=== PATIENT | male | born 1995 | race Caucasian/White ===

== ENCOUNTER 2024-08-06 11:42 | Emergency (ER) | payer OTHER ==
[~2024-08-06] VITALS: Ht 177.8 cm; Wt 816.9 kg
[2024-08-06] MEDS ORDERED: Methadone HCL 10 MG TAB PO ONE (12:20)
[2024-08-06] MEDS ORDERED: METH10 PO (13:35)
== END 2024-08-06 13:24 | disposition home or self-care (01) ==
LOC: ER 11:42
DX: Z76.0 Encounter for issue of repeat prescription (principal)
CPT/HCPCS: 99281; A9270

== ENCOUNTER 2024-11-18 22:14 | Emergency (ER) | payer OTHER ==
[~2024-11-18] VITALS: Ht 175.3 cm; Wt 86.2 kg
[~2024-11-18 22:14] MED LIST: ALBU90OI INH; ALPRAZOLAM0.5 M1 PO; Amoxicillin500 MG PO; Buspirone HCl15 MG PO; CATAPRES0.1 MG PO; FOLI1 PO; METH10 PO; PROP60 PO; QUET100 PO; ROSUVASTATIN CA10 MG PO; VITAMIN B-1100 M1 PO; ZOLOFT10013 PO
[2024-11-18] MEDS ORDERED: Folic Acid 1 MG TAB PO ONE (22:30)
[2024-11-18] MEDS ORDERED: Thiamine HCl 100 MG Tab PO ONE (22:30)
[2024-11-18] MEDS ORDERED: NS 1,000 ML IV SCH (22:30)
[2024-11-18] MEDS ORDERED: Diphth,Pertuss(Acell),Tet Vac 0.5 ML VIAL IM ONE (22:30)
[2024-11-18 23:11] LABS: BASOPHILS ABSOLUTE AUTO 0.04 K/mm3 (0.00-0.23); BASOPHILS PERCENT AUTO 1 % (0-2); EOSINOPHILS ABSOLUTE AUTO 0.25 K/mm3 (0.00-0.68); EOSINOPHILS PERCENT AUTO 6 % (0-6); Hematocrit 43.6 % (37.0-53.0); Hemoglobin 15.4 g/dL (13.5-17.5); IMMATURE GRAN ABSOLUTE AUTO 0.01 K/mm3 (0.00-0.10); IMMATURE GRAN PERCENT AUTO 0 % (0-1); LYMPHOCYTES ABSOLUTE AUTO 0.51 K/mm3 (0.84-5.20); LYMPHOCYTES PERCENT AUTO 13 % (21-46); MONOCYTES ABSOLUTE AUTO 0.28 K/mm3 (0.16-1.47); MONOCYTES PERCENT AUTO 7 % (4-13); Mean Corpuscular HGB 31.2 pg (26.0-34.0); Mean Corpuscular HGB Conc 35.3 g/dL (31.5-36.5); Mean Corpuscular Volume 88 fL (80-100); Mean Platelet Volume 8.7 fL (9.1-12.4); NEUTROPHILS ABSOLUTE AUTO 2.91 K/mm3 (1.96-9.15); NEUTROPHILS PERCENT AUTO 73 % (41-73); Platelet Count 219 K/mm3 (150-400); RDW Coefficient Variation 12.8 % (11.7-14.2); RDW Standard Deviation 41.1 fL (35.1-46.3); Red Blood Cell Count 4.94 M/mm3 (4.30-5.90)
[2024-11-18 23:36] LABS: Ethanol (Alcohol), Blood, Med 218 mg/dL; Salicylate <1.7 mg/dL (2.8-20.0); Thyroid Stimulating Hormone 0.783 uIU/mL (0.360-4.800)
[2024-11-18 23:37] LABS: Alanine Aminotransfer (ALT/SGP 109 U/L (12-78); Albumin, Blood 4.5 g/dL (3.4-5.0); Albumin/Globulin Ratio 1.2 (0.8-1.8); Alk Phos 104 U/L (50-136); Anion Gap 12 mmol/L (3-11); Aspartate Aminotrans (AST/SGOT 92 U/L (12-37); Bilirubin, Total 0.6 mg/dL (0.1-1.0); Blood Urea Nitrogen 12 mg/dL (8-24); Bun/Creatinine Ratio 17.9 (12.0-20.0); CO2, Blood 28 mmol/L (21-32); Calcium, Blood 9.2 mg/dL (8.5-10.1); Chloride, Blood 103 mmol/L (98-108); Creatinine, Blood 0.67 mg/dL (0.60-1.20); Globulin, Blood 3.7 g/dL (2.2-4.0); Glomerular Filtration Rate 129 (60-); Glucose, Blood 89 mg/dL (70-99); Potassium, Blood 4.1 mmol/L (3.5-5.5); Sodium, Blood 139 mmol/L (136-145); Total Protein, Blood 8.2 g/dL (6.4-8.2)
[2024-11-18 23:39] LABS: Acetaminophen, Random <2.0 ug/mL (10.0-30.0)
[2024-11-19] MEDS ORDERED: Acetaminophen 500 MG Tab PO ONE (01:10)
== END 2024-11-19 11:36 | disposition home or self-care (01) ==
LOC: ER 22:14
PROVIDERS: Emergency Medicine
DX: S51.812A Laceration without foreign body of left forearm, initial encounter (principal); S51.811A Laceration without foreign body of right forearm, initial encounter; F10.10 Alcohol abuse, uncomplicated; Y90.7 Blood alcohol level of 200-239 mg/100 ml; J44.9 Chronic obstructive pulmonary disease, unspecified; W26.8XXA Contact with other sharp object(s), not elsewhere classified, initial encounter
CPT/HCPCS: 80053; 80320; 84439; 84443; 85025; 90715; A9270; G0480; J7030

== ENCOUNTER 2024-12-04 17:55 | Emergency (ER) | payer OTHER ==
[~2024-12-04] VITALS: Ht 175.3 cm; Wt 83.9 kg
[2024-12-04 19:00] LABS: BASOPHILS ABSOLUTE AUTO 0.01 K/mm3 (0.00-0.23); BASOPHILS PERCENT AUTO 0 % (0-2); EOSINOPHILS ABSOLUTE AUTO 0.29 K/mm3 (0.00-0.68); EOSINOPHILS PERCENT AUTO 9 % (0-6); Hematocrit 42.5 % (37.0-53.0); Hemoglobin 14.7 g/dL (13.5-17.5); IMMATURE GRAN ABSOLUTE AUTO 0.01 K/mm3 (0.00-0.10); IMMATURE GRAN PERCENT AUTO 0 % (0-1); LYMPHOCYTES ABSOLUTE AUTO 0.36 K/mm3 (0.84-5.20); LYMPHOCYTES PERCENT AUTO 11 % (21-46); MONOCYTES ABSOLUTE AUTO 0.36 K/mm3 (0.16-1.47); MONOCYTES PERCENT AUTO 11 % (4-13); Mean Corpuscular HGB 31.8 pg (26.0-34.0); Mean Corpuscular HGB Conc 34.6 g/dL (31.5-36.5); Mean Corpuscular Volume 92 fL (80-100); Mean Platelet Volume 9.5 fL (9.1-12.4); NEUTROPHILS ABSOLUTE AUTO 2.37 K/mm3 (1.96-9.15); NEUTROPHILS PERCENT AUTO 70 % (41-73); Platelet Count 124 K/mm3 (150-400); RDW Coefficient Variation 12.3 % (11.7-14.2); Red Blood Cell Count 4.62 M/mm3 (4.30-5.90)
[2024-12-04 19:18] LABS: Albumin/Globulin Ratio 1.2 (0.8-1.8); Bilirubin, Total 0.5 mg/dL (0.1-1.0); Bun/Creatinine Ratio 16.4 (12.0-20.0); Calcium, Blood 9.5 mg/dL (8.5-10.1); Creatinine, Blood 0.92 mg/dL (0.60-1.20); Globulin, Blood 3.4 g/dL (2.2-4.0); Total Protein, Blood 7.4 g/dL (6.4-8.2)
[2024-12-04 21:55] LABS: Source, Urine Clean Catch
[2024-12-04 22:00] LABS: Bilirubin, Urine Neg (Neg); Blood, Urine Neg (Neg); Glucose Qualitative, Urine Neg (Neg); Ketones, Urine Neg (Neg); Leukocyte Esterase, Urine Neg (Neg); Nitrite, Urine Neg (Neg); Protein, Urine Neg (Neg); Urobilinogen, Urine NORM (Normal)
[2024-12-04 22:14] LABS: Appearance, Urine Clear (Clear); Color, Urine Yellow (P-Yellow); U Amphetamine Screen Not Detected; U Barbituate Screen Not Detected; U Benzodiazapine Screen DETECTED; U Buprenorphine Screen Not Detected; U Cannabinoids Screen Not Detected; U Cocaine Screen Not Detected; U Methadone Screen DETECTED; U Methamphetamine Screen Not Detected; U Opiates Screen Not Detected; U Phencyclidine Screen Not Detected
[2024-12-04 22:15] LABS: U Oxycodone Screen Not Detected
== END 2024-12-04 23:35 | disposition home or self-care (01) ==
LOC: ER 17:55
PROVIDERS: Physician Assistant
DX: R40.0 Somnolence (principal); J44.9 Chronic obstructive pulmonary disease, unspecified; Z88.8 Allergy status to other drugs, medicaments and biological substances; Z79.899 Other long term (current) drug therapy
CPT/HCPCS: 80053; 81003; 85025; 93005; 93010; 99285-25

== ENCOUNTER 2024-12-16 19:34 | Emergency (ER) | payer OTHER ==
[~2024-12-16] VITALS: Ht 175.3 cm; Wt 88.5 kg
[2024-12-16 20:11] LABS: BASOPHILS ABSOLUTE AUTO 0.06 K/mm3 (0.00-0.23); BASOPHILS PERCENT AUTO 1 % (0-2); EOSINOPHILS PERCENT AUTO 4 % (0-6); Hematocrit 42.1 % (37.0-53.0); Hemoglobin 15.4 g/dL (13.5-17.5); IMMATURE GRAN PERCENT AUTO 0 % (0-1); LYMPHOCYTES ABSOLUTE AUTO 0.27 K/mm3 (0.84-5.20); LYMPHOCYTES PERCENT AUTO 5 % (21-46); MONOCYTES ABSOLUTE AUTO 0.83 K/mm3 (0.16-1.47); MONOCYTES PERCENT AUTO 16 % (4-13); Mean Corpuscular HGB 31.4 pg (26.0-34.0); Mean Corpuscular HGB Conc 36.6 g/dL (31.5-36.5); Mean Corpuscular Volume 86 fL (80-100); Mean Platelet Volume 9.6 fL (9.1-12.4); NEUTROPHILS ABSOLUTE AUTO 3.86 K/mm3 (1.96-9.15); NEUTROPHILS PERCENT AUTO 74 % (41-73); Platelet Count 190 K/mm3 (150-400); RDW Coefficient Variation 11.7 % (11.7-14.2); RDW Standard Deviation 37.1 fL (35.1-46.3); White Blood Cell Count 5.22 K/mm3 (4.00-11.30)
[2024-12-16 20:38] LABS: Albumin, Blood 4.3 g/dL (3.4-5.0); Albumin/Globulin Ratio 1.3 (0.8-1.8); Bilirubin, Total 1.6 mg/dL (0.1-1.0); Bun/Creatinine Ratio 16.9 (12.0-20.0); Calcium, Blood 9.4 mg/dL (8.5-10.1); Creatinine, Blood 0.71 mg/dL (0.60-1.20); Globulin, Blood 3.3 g/dL (2.2-4.0); Potassium, Blood 4.6 mmol/L (3.5-5.5); Total Protein, Blood 7.6 g/dL (6.4-8.2)
[2024-12-16 20:42] LABS: CORONAVIRUS COVID-19 AG Negative (NEGATIVE); INFLUENZA A AG Positive (NEGATIVE); INFLUENZA B AG Negative (NEGATIVE)
[2024-12-16] MEDS ORDERED: NS 1,000 ML IV SCH (20:50)
[2024-12-16] MEDS ORDERED: RX Prepack Albuterol 1 PREPACK/6.7 GM INH UD ONE (21:05)
== END 2024-12-16 22:20 | disposition home or self-care (01) ==
LOC: ER 19:34
PROVIDERS: Student in an Organized Health Care Education/Training Program
DX: J10.1 Influenza due to other identified influenza virus with other respiratory manifestations (principal); Z79.2 Long term (current) use of antibiotics; Z79.02 Long term (current) use of antithrombotics/antiplatelets; Z79.899 Other long term (current) drug therapy
CPT/HCPCS: 71046; 80053; 85025; 87428-QW; 93005; 93010; 99284-25; A9270; J7030

== ENCOUNTER 2025-03-05 11:29 | Emergency (ER) | payer OTHER ==
[~2025-03-05] VITALS: Ht 175.3 cm; Wt 83.5 kg
[2025-03-05 13:00] LABS: BASOPHILS ABSOLUTE AUTO 0.02 K/mm3 (0.00-0.23); BASOPHILS PERCENT AUTO 1 % (0-2); EOSINOPHILS ABSOLUTE AUTO 0.13 K/mm3 (0.00-0.68); EOSINOPHILS PERCENT AUTO 3 % (0-6); Hematocrit 43.1 % (37.0-53.0); Hemoglobin 14.9 g/dL (13.5-17.5); IMMATURE GRAN ABSOLUTE AUTO 0.01 K/mm3 (0.00-0.10); IMMATURE GRAN PERCENT AUTO 0 % (0-1); LYMPHOCYTES ABSOLUTE AUTO 0.37 K/mm3 (0.84-5.20); LYMPHOCYTES PERCENT AUTO 9 % (21-46); MONOCYTES ABSOLUTE AUTO 0.35 K/mm3 (0.16-1.47); MONOCYTES PERCENT AUTO 8 % (4-13); Mean Corpuscular HGB Conc 34.6 g/dL (31.5-36.5); Mean Corpuscular Volume 87 fL (80-100); Mean Platelet Volume 9.4 fL (9.1-12.4); NEUTROPHILS ABSOLUTE AUTO 3.27 K/mm3 (1.96-9.15); NEUTROPHILS PERCENT AUTO 79 % (41-73); Platelet Count 144 K/mm3 (150-400); RDW Coefficient Variation 13.2 % (11.7-14.2); RDW Standard Deviation 41.6 fL (35.1-46.3); Red Blood Cell Count 4.96 M/mm3 (4.30-5.90); White Blood Cell Count 4.15 K/mm3 (4.00-11.30)
[2025-03-05 13:48] LABS: Albumin, Blood 3.8 g/dL (3.4-5.0); Albumin/Globulin Ratio 1.1 (0.8-1.8); Bilirubin, Total 0.8 mg/dL (0.1-1.0); Bun/Creatinine Ratio 17.6 (12.0-20.0); Calcium, Blood 8.4 mg/dL (8.5-10.1); Creatinine, Blood 0.68 mg/dL (0.60-1.20); Globulin, Blood 3.4 g/dL (2.2-4.0); Potassium, Blood 3.8 mmol/L (3.5-5.5); Total Protein, Blood 7.2 g/dL (6.4-8.2)
[2025-03-05] MEDS ORDERED: Ketorolac Tromethamine 15mg Vial IV ONE (14:50)
[2025-03-05] MEDS ORDERED: Folic Acid 1 MG TAB PO ONE (14:50)
[2025-03-05] MEDS ORDERED: NS 1,000 ML IV SCH (14:50)
[2025-03-05] MEDS ORDERED: Thiamine HCl 100 MG Tab PO ONE (14:50)
[2025-03-05 15:22] LABS: Source, Urine Clean Catch
[2025-03-05 15:34] LABS: Appearance, Urine Clear (Clear); Bilirubin, Urine Neg (Neg); Blood, Urine Neg (Neg); Glucose Qualitative, Urine Neg (Neg); Ketones, Urine Neg (Neg); Leukocyte Esterase, Urine Neg (Neg); Nitrite, Urine Neg (Neg); Protein, Urine Neg (Neg); Urobilinogen, Urine NORM (Normal)
[2025-03-05] MEDS ORDERED: LORazepam 2 MG/ML 1ML Injection IV ONE (15:45)
[2025-03-05 16:06] LABS: Color, Urine Pale Yellow (P-Yellow)
[2025-03-05] MEDS ORDERED: Morphine Sulfate 4 MG/1 ML Injection IV ONE (16:15)
[2025-03-05] MEDS ORDERED: ONDA4 PO (16:41)
[2025-03-05] MEDS ORDERED: ACET500 PO (16:41)
[2025-03-05] MEDS ORDERED: IBUP600 PO (16:41)
== END 2025-03-05 17:09 | disposition home or self-care (01) ==
LOC: ER 11:29
PROVIDERS: Emergency Medicine; Physician Assistant
DX: F10.139 Alcohol abuse with withdrawal, unspecified (principal); K85.90 Acute pancreatitis without necrosis or infection, unspecified; K59.00 Constipation, unspecified; R74.01 Elevation of levels of liver transaminase levels; D69.6 Thrombocytopenia, unspecified; Z79.899 Other long term (current) drug therapy
CPT/HCPCS: 74176; 80053; 81003; 83690; 85025; 86308; 96374; 96375; 99284-25; A9270; J1885; J2060; J2270; J7030

== ENCOUNTER 2025-03-16 17:10 | Inpatient (IN) | payer OTHER ==
[~2025-03-16] VITALS: Ht 175.3 cm; Wt 86.4 kg
[~2025-03-16 17:10] MED LIST changes: +ACET500 PO; +IBUP600 PO; +ONDA4 PO
[2025-03-16] MEDS ORDERED: Ketorolac Tromethamine 15mg Vial IV ONE (17:25)
[2025-03-16] MEDS ORDERED: Ondansetron HCl 2 MG / ML 2ML Vial IV ONE (17:25)
[2025-03-16] MEDS ORDERED: Ketamine HCL 10 MG in NS 100 ML IV ONE ×2 (17:25→17:30)
[2025-03-16] MEDS ORDERED: NS 1,000 ML IV SCH (17:25)
[2025-03-16 17:44] LABS: BASOPHILS ABSOLUTE AUTO 0.02 K/mm3 (0.00-0.23); BASOPHILS PERCENT AUTO 1 % (0-2); EOSINOPHILS ABSOLUTE AUTO 0.12 K/mm3 (0.00-0.68); EOSINOPHILS PERCENT AUTO 4 % (0-6); Hematocrit 45.7 % (37.0-53.0); Hemoglobin 16.5 g/dL (13.5-17.5); IMMATURE GRAN PERCENT AUTO 0 % (0-1); LYMPHOCYTES ABSOLUTE AUTO 0.29 K/mm3 (0.84-5.20); LYMPHOCYTES PERCENT AUTO 9 % (21-46); MONOCYTES ABSOLUTE AUTO 0.31 K/mm3 (0.16-1.47); MONOCYTES PERCENT AUTO 10 % (4-13); Mean Corpuscular HGB 30.7 pg (26.0-34.0); Mean Corpuscular HGB Conc 36.1 g/dL (31.5-36.5); Mean Corpuscular Volume 85 fL (80-100); Mean Platelet Volume 8.6 fL (9.1-12.4); NEUTROPHILS ABSOLUTE AUTO 2.36 K/mm3 (1.96-9.15); NEUTROPHILS PERCENT AUTO 76 % (41-73); Platelet Count 136 K/mm3 (150-400); RDW Coefficient Variation 13.1 % (11.7-14.2); RDW Standard Deviation 39.9 fL (35.1-46.3); Red Blood Cell Count 5.37 M/mm3 (4.30-5.90)
[2025-03-16 18:32] LABS: Albumin/Globulin Ratio 0.7 (0.8-1.8); Bilirubin, Total 1.4 mg/dL (0.1-1.0); Bun/Creatinine Ratio 13.8 (12.0-20.0); Calcium, Blood 8.3 mg/dL (8.5-10.1); Creatinine, Blood 0.8 mg/dL (0.60-1.20); Globulin, Blood 4.2 g/dL (2.2-4.0); Potassium, Blood 3.5 mmol/L (3.5-5.5); Total Protein, Blood 7.2 g/dL (6.4-8.2)
[2025-03-16 19:12] LABS: Source, Urine Clean Catch
[2025-03-16 19:19] LABS: Appearance, Urine Clear (Clear); Bilirubin, Urine Neg (Neg); Blood, Urine Neg (Neg); Color, Urine Yellow (P-Yellow); Glucose Qualitative, Urine Neg (Neg); Ketones, Urine Neg (Neg); Leukocyte Esterase, Urine Neg (Neg); Nitrite, Urine Neg (Neg); Protein, Urine Neg (Neg); Urobilinogen, Urine NORM (Normal)
[2025-03-16] MEDS ORDERED: HYDROmorphone HCl/Pf 1MG SYR IV ONE (19:55)
[2025-03-16] MEDS ORDERED: NS KCl 20mEq 1,000 ML IV SCH (20:20)
[2025-03-16] MEDS ORDERED: HYDROmorphone HCl/Pf 1MG SYR IV PRN ×2 (20:20→23:20)
[2025-03-16] MEDS ORDERED: ChlordiazePOXIDE 25 MG Cap PO PRN ×3 (20:25→20:30)
[2025-03-16] MEDS ORDERED: Prochlorperazine Edisylate 10 mg Vial IV PRN (20:25)
[2025-03-16] MEDS ORDERED: Magnesium Hydroxide Conc 10 ML UDC PO PRN (20:30)
[2025-03-16] MEDS ORDERED: Ketorolac Tromethamine 30mg Vial IV PRN (20:45)
[2025-03-16] MEDS ORDERED: QUEtiapine Fumarate 100 MG Tab PO SCH (21:00)
[2025-03-16 21:42] VITALS: BP 148/119
[2025-03-16] MEDS ORDERED: VENL150ER PO (21:50)
[2025-03-16] MEDS ORDERED: PROM25 PO (21:51)
[2025-03-16] MEDS ORDERED: OMEP20ER PO (21:52)
[2025-03-16] MEDS ORDERED: LORazepam 2 MG/ML 1ML Injection IV PRN (23:15)
[2025-03-16 23:52] VITALS: BP 158/113
--- NOTE | 2025-03-17 00:07 | NUR ---
ADMIT NOTE REPORT RECIVED BY THIS RN FROM AOC DIRECTOR COMBAT PLANS OFFICERMARY COCHRAN @ APPROX 2131 PT ARRIVED TO ROOM @ APPROX 0, PT SELF TRANSFERED TO THE BED, PT HOLDING APPROPRATE CONCERSATION, MOVING ALL EXTREMITIES WIHT PURPOSE.
[2025-03-17 03:58] VITALS: BP 156/101
[2025-03-17 05:08] LABS: BASOPHILS ABSOLUTE AUTO 0.02 K/mm3 (0.00-0.23); BASOPHILS PERCENT AUTO 1 % (0-2); EOSINOPHILS PERCENT AUTO 7 % (0-6); Hematocrit 39.1 % (37.0-53.0); Hemoglobin 13.7 g/dL (13.5-17.5); IMMATURE GRAN PERCENT AUTO 0 % (0-1); LYMPHOCYTES ABSOLUTE AUTO 0.26 K/mm3 (0.84-5.20); LYMPHOCYTES PERCENT AUTO 9 % (21-46); MONOCYTES ABSOLUTE AUTO 0.24 K/mm3 (0.16-1.47); MONOCYTES PERCENT AUTO 9 % (4-13); Mean Corpuscular HGB 30.6 pg (26.0-34.0); Mean Corpuscular Volume 88 fL (80-100); Mean Platelet Volume 8.8 fL (9.1-12.4); NEUTROPHILS ABSOLUTE AUTO 2.08 K/mm3 (1.96-9.15); NEUTROPHILS PERCENT AUTO 74 % (41-73); Platelet Count 108 K/mm3 (150-400); RDW Coefficient Variation 13.2 % (11.7-14.2); RDW Standard Deviation 42.2 fL (35.1-46.3); Red Blood Cell Count 4.47 M/mm3 (4.30-5.90)
[2025-03-17 05:44] LABS: Albumin, Blood 3.3 g/dL (3.4-5.0); Albumin/Globulin Ratio 1.3 (0.8-1.8); Bun/Creatinine Ratio 10.8 (12.0-20.0); Calcium, Blood 7.9 mg/dL (8.5-10.1); Creatinine, Blood 0.83 mg/dL (0.60-1.20); Globulin, Blood 2.6 g/dL (2.2-4.0); Magnesium, Blood 1.9 mg/dL (1.6-2.4); Phosphorus, Blood 3.4 mg/dL (2.5-4.9); Potassium, Blood 3.3 mmol/L (3.5-5.5); Total Protein, Blood 5.9 g/dL (6.4-8.2)
[2025-03-17] MEDS ORDERED: Omeprazole 20 MG CapCR PO SCH (06:00)
--- NOTE | 2025-03-17 06:17 | NUR ---
SHIFT SUMMARY PT IS A&O X4, ABLE TO MAKE NEEDS KNOWN, MOVING ALL EXTREMITIES WITH PURPOSE, REPOSITIONING SELF IN BED, USING CALL LIGHT APPROPRIATELY. CONTINUOUS SPO2, SPO2 GREATER THAN 90% ON RA, NO SIGNS OF RESPIRATORY DISTRESS NOTED THIS SHIFT. CONTINUOUS TELE MONITORING, SINUS 60-80 S , PT DENIES CHEST P/P, PULSES PRESENT T/O, CAP REFILL WNL. BOWEL TONES PRESENT IN ALL 4Q, PT REPORTING NAUSEA/MEDICATED PER ORDERS PT USING URINAL IND PT REPORTING PAIN TO UPPER QUADRANTS/ MEDICATED PER ORDERS/ HEATING PAD PLACED. CIWA 6-14, HAVING TREMORS/NAUSEA/SWEAT/ANXIETY/LIGHT SENSITIVITY/ HEAD ACHE. BED LOWEST POSITION, CALL LIGHT IN REACH, AWAITING TO GIVE REPORT TO ONCOMING RN.
[2025-03-17] MEDS ORDERED: Mag Sulfate 1 GM/D5% 100ML 100 ML IV STA (07:29)
[2025-03-17] MEDS ORDERED: Potassium Chloride 20 MEQ TabCR PO ONE (08:00)
[2025-03-17 08:14] VITALS: BP 133/93
[2025-03-17] MEDS ORDERED: Venlafaxine HCl 75 MG CapCR PO SCH (09:00)
[2025-03-17] MEDS ORDERED: Enoxaparin 40 MG/0.4 ML SYR SC SCH (09:00)
[2025-03-17] MEDS ORDERED: Folic Acid 1 MG TAB PO SCH (09:00)
[2025-03-17] MEDS ORDERED: Multivitamins 1 Tab PO SCH (09:00)
[2025-03-17] MEDS ORDERED: Thiamine HCl 100 MG Tab PO SCH (09:00)
[2025-03-17] MEDS ORDERED: Methadone HCL 10 MG TAB PO SCH (09:00)
[2025-03-17] MEDS ORDERED: Promethazine HCl 25 MG Tab PO PRN (09:45)
[2025-03-17 12:12] VITALS: BP 126/101
[2025-03-17] MEDS ORDERED: HYDROmorphone HCl/Pf 1MG SYR IV PRN (13:50)
[2025-03-17 15:48] VITALS: BP 145/94
--- NOTE | 2025-03-17 16:35 | NUR ---
SHIFT SUMMARY: A/O X3, PLEASANT AND COOPERATIVE WITH CARE, ABLE TO COMMUNICATE NEEDS IN SENTENCES, CIWA SCORES RANGED FROM 11-14 THIS SHIFT, ETOH WITHDRAWAL MANAGED WITH LIBRIUM PER EMAR, LAST DRINK REPORTED THE MORNING OF 03/16. NSR, IV RAC. RA WHILE AWAKE, SAT >92% ON 1L O2 VIA NC WITH SLEEP, OBSERVABLE PERIODS OF APNEA, PT REPORTS FAMILY HX OF RUBIA. DIET ADVANCED TO HEART HEALTHY WITH RESTRICTED FIBER TOLERATED, NAUSEA MANAGED PER EMAR, CONSISTENT DIFFUSE ABD TENDERNESS MANAGED PER EMAR, SBA FOR TOILETING, URINAL AT BEDSIDE. PT RESTING WITH CALL LIGHT WITHIN REACH.
[2025-03-17] MEDS ORDERED: Nicotine Polacrilex 2 MG Gum PO PRN (16:45)
[2025-03-17] MEDS ORDERED: Nicotine 14 MG PATCH TOP SCH (17:00)
[2025-03-17 19:38] VITALS: BP 132/103
--- NOTE | 2025-03-17 21:11 | NUR ---
PT SCORED 26 ON CIWA, GIVEN 50MG PO LIBRIUM. NOW PT IS RESTING COMFORTABLY WITH EYES CLOSED, NO AGITATION, TREMORS, OR SWEATING NOTED.
--- NOTE | 2025-03-17 21:49 | NUR ---
PT WOKE UP STATING THAT HE "DIDN'T FEEL SO WELL". NEW CIWA DONE. PT IS AOX4 ABLE TO ADD UNSURE OF DATE PREVIOUS. PT IS DIAPHORETIC AND IS GETTING NEW GOWN. CURRENT CIWA IS 16.
[2025-03-18 01:17] VITALS: BP 125/89
[2025-03-18 04:05] VITALS: BP 128/107
[2025-03-18 04:31] LABS: BASOPHILS ABSOLUTE AUTO 0.01 K/mm3 (0.00-0.23); BASOPHILS PERCENT AUTO 1 % (0-2); EOSINOPHILS ABSOLUTE AUTO 0.18 K/mm3 (0.00-0.68); EOSINOPHILS PERCENT AUTO 10 % (0-6); Hematocrit 37.6 % (37.0-53.0); Hemoglobin 13.1 g/dL (13.5-17.5); IMMATURE GRAN ABSOLUTE AUTO 0.01 K/mm3 (0.00-0.10); IMMATURE GRAN PERCENT AUTO 1 % (0-1); LYMPHOCYTES ABSOLUTE AUTO 0.22 K/mm3 (0.84-5.20); LYMPHOCYTES PERCENT AUTO 12 % (21-46); MONOCYTES ABSOLUTE AUTO 0.22 K/mm3 (0.16-1.47); MONOCYTES PERCENT AUTO 12 % (4-13); Mean Corpuscular HGB 31.6 pg (26.0-34.0); Mean Corpuscular HGB Conc 34.8 g/dL (31.5-36.5); Mean Corpuscular Volume 91 fL (80-100); Mean Platelet Volume 9.5 fL (9.1-12.4); NEUTROPHILS ABSOLUTE AUTO 1.25 K/mm3 (1.96-9.15); NEUTROPHILS PERCENT AUTO 66 % (41-73); Platelet Count 91 K/mm3 (150-400); RDW Coefficient Variation 13.5 % (11.7-14.2); RDW Standard Deviation 44.8 fL (35.1-46.3); Red Blood Cell Count 4.15 M/mm3 (4.30-5.90); White Blood Cell Count 1.89 K/mm3 (4.00-11.30)
[2025-03-18 04:49] LABS: Calcium, Blood 8.2 mg/dL (8.5-10.1); Creatinine, Blood 0.72 mg/dL (0.60-1.20); Globulin, Blood 2.9 g/dL (2.2-4.0); Magnesium, Blood 2.1 mg/dL (1.6-2.4); Potassium, Blood 3.8 mmol/L (3.5-5.5); Total Protein, Blood 5.9 g/dL (6.4-8.2)
[2025-03-18 07:31] VITALS: BP 142/95
[2025-03-18 12:00] VITALS: BP 132/95
[2025-03-18] MEDS ORDERED: Amylase/Lipase/Protease DR Cap 12,000 PO SCH (12:30)
[2025-03-18 16:05] VITALS: BP 122/108
--- NOTE | 2025-03-18 17:10 | NUR ---
SHIFT SUMMARY: CIWA SCORES RANGED FROM 9-15 THIS SHIFT, A/OX3, PLEASANT AND COOPERATIVE WITH CARE, ABLE TO COMMUNICATE NEEDS, USES CALL LIGHT APPROPRIATELY, INTERMITTENTLY CONFUSED AND ANXIOUS, BED ALARM ON. NSR, HR 70'S-90'S. RA WHILE AWAKE, 1L WITH SLEEP. REPORTS DIFFICULTY INITIATING A STREAM OF URINE BUT IS ABLE TO EMPTY HIS BLADDER ONCE A FLOW IS INITIATED, HAD A BM TODAY, PT TOLERATED PO INTAKE WITH ANTIEMETIC. SBA1 WITH AMBULATING, SHOWERED INDEPENDENTLY. PT REPORTS THAT HE HAS AN INTAKE INTERVIEW SCHEDULED AT [facility] ON 03/26 WITH A PENDING ADMISSION FOR 03/27, HIS GOAL IS TO BE DISCHARGED BY TUESDAY, 03/22 TO SPEND THE WEEKEND WITH HIS DAUGHTER BEFORE HIS UPCOMING REHAB.
[2025-03-18 20:09] VITALS: BP 116/93
[2025-03-19 01:27] VITALS: BP 133/77
[2025-03-19 05:06] VITALS: BP 119/77
--- NOTE | 2025-03-19 05:10 | NUR ---
PT HAS BEEN SLEEPING WELL SINCE 199. NO CIWA S/S WHILE SLEEPING.
[2025-03-19 05:46] LABS: BASOPHILS ABSOLUTE AUTO 0.02 K/mm3 (0.00-0.23); BASOPHILS PERCENT AUTO 1 % (0-2); EOSINOPHILS PERCENT AUTO 9 % (0-6); Hematocrit 37.7 % (37.0-53.0); Hemoglobin 12.8 g/dL (13.5-17.5); IMMATURE GRAN PERCENT AUTO 0 % (0-1); LYMPHOCYTES ABSOLUTE AUTO 0.23 K/mm3 (0.84-5.20); LYMPHOCYTES PERCENT AUTO 10 % (21-46); MONOCYTES ABSOLUTE AUTO 0.25 K/mm3 (0.16-1.47); MONOCYTES PERCENT AUTO 11 % (4-13); Mean Corpuscular HGB 30.5 pg (26.0-34.0); Mean Corpuscular Volume 90 fL (80-100); NEUTROPHILS ABSOLUTE AUTO 1.59 K/mm3 (1.96-9.15); NEUTROPHILS PERCENT AUTO 70 % (41-73); Platelet Count 95 K/mm3 (150-400); RDW Coefficient Variation 13.5 % (11.7-14.2); RDW Standard Deviation 43.9 fL (35.1-46.3); White Blood Cell Count 2.29 K/mm3 (4.00-11.30)
[2025-03-19 06:11] LABS: Bilirubin, Total 0.8 mg/dL (0.1-1.0); Bun/Creatinine Ratio 7.2 (12.0-20.0); Calcium, Blood 8.4 mg/dL (8.5-10.1); Creatinine, Blood 0.69 mg/dL (0.60-1.20); Globulin, Blood 2.9 g/dL (2.2-4.0); Magnesium, Blood 1.8 mg/dL (1.6-2.4); Potassium, Blood 3.7 mmol/L (3.5-5.5); Total Protein, Blood 5.9 g/dL (6.4-8.2)
[2025-03-19 07:37] VITALS: BP 123/81
[2025-03-19] MEDS ORDERED: Polyethylene Glycol 3350 17 gm PO SCH (11:00)
[2025-03-19 12:37] VITALS: BP 136/83
[2025-03-19 14:10] LABS: Hematocrit 37.9 % (37.0-53.0); Hemoglobin 13.2 g/dL (13.5-17.5)
--- NOTE | 2025-03-19 18:00 | NUR ---
SHIFT SUMMARY PATIENT AOX3 ABLE TO MAKE NEEDS KNOWN HE. HE STATES HE HAS ABD PAIN AND A HEADACHE EVEN AFTER GETTING LIBRIUM AND PAIN MEDICATION. HE SLEEPS HEAVY MOST OF THE DAY AFTER HIS PRN MEDICATIONS AND CAN BE HARD TO WAKE UP AND WHEN HE DOES WAKE UP HE JUST ASKED FOR MORE PRN MEDS BUT HE IS TOLD HE IS TOO SLEEPY TO GET THEM AND THEN FALLS RIGHT BACK TO SLEEP WHILE HE IS TALKING TO YOU.
[2025-03-19 18:22] VITALS: BP 146/101
[2025-03-19 20:00] VITALS: BP 134/97
[2025-03-20] VITALS (7 sets, daily range): BP systolic 111–149; BP diastolic 72–106
[2025-03-20 04:53] LABS: BASOPHILS ABSOLUTE AUTO 0.02 K/mm3 (0.00-0.23); BASOPHILS PERCENT AUTO 1 % (0-2); EOSINOPHILS ABSOLUTE AUTO 0.23 K/mm3 (0.00-0.68); EOSINOPHILS PERCENT AUTO 9 % (0-6); Hematocrit 38.4 % (37.0-53.0); Hemoglobin 12.9 g/dL (13.5-17.5); IMMATURE GRAN ABSOLUTE AUTO 0.01 K/mm3 (0.00-0.10); IMMATURE GRAN PERCENT AUTO 0 % (0-1); LYMPHOCYTES ABSOLUTE AUTO 0.25 K/mm3 (0.84-5.20); LYMPHOCYTES PERCENT AUTO 10 % (21-46); MONOCYTES ABSOLUTE AUTO 0.29 K/mm3 (0.16-1.47); MONOCYTES PERCENT AUTO 12 % (4-13); Mean Corpuscular HGB 31.2 pg (26.0-34.0); Mean Corpuscular HGB Conc 33.6 g/dL (31.5-36.5); Mean Corpuscular Volume 93 fL (80-100); NEUTROPHILS PERCENT AUTO 68 % (41-73); Platelet Count 109 K/mm3 (150-400); RDW Coefficient Variation 13.4 % (11.7-14.2); RDW Standard Deviation 45.9 fL (35.1-46.3); Red Blood Cell Count 4.13 M/mm3 (4.30-5.90)
[2025-03-20 05:09] LABS: Albumin/Globulin Ratio 0.9 (0.8-1.8); Bilirubin, Total 0.4 mg/dL (0.1-1.0); Bun/Creatinine Ratio 9.1 (12.0-20.0); Calcium, Blood 8.8 mg/dL (8.5-10.1); Creatinine, Blood 0.66 mg/dL (0.60-1.20); Globulin, Blood 3.2 g/dL (2.2-4.0); Magnesium, Blood 1.8 mg/dL (1.6-2.4); Potassium, Blood 4.2 mmol/L (3.5-5.5); Total Protein, Blood 6.2 g/dL (6.4-8.2)
--- NOTE | 2025-03-20 06:09 | NUR ---
SHIFT SUMMARY PT HAS TOLERATED NIGHT WELL WITH NO SIGNIFICANT CHANGES IN STATUS. PT COMPLAINED PERIODICALLY OF PAIN AND WAS GIVEN MEDICATIONS AT TIME OF COMPLAINT. PT RECIEVED MEDICATIONS RELATED TO HIS ALCOHOL WITHDRAWALS AND AT THIS TIME APPEARS TO BE RESTING COMFORTABLY IN HIS ROOM. WILL CONTINUE TO MONITOR UNTIL REPORT PASSED TO DAY SHIFT TEAM.
[2025-03-20] MEDS ORDERED: OxyCODONE HCL 5 MG TAB PO PRN (10:10)
[2025-03-20] MEDS ORDERED: Nicotine 21 MG PATCH TOP SCH (16:00)
--- NOTE | 2025-03-20 17:47 | NUR ---
PT IS A&Ox4 AND ABLE TO MAKE NEEDS KNOWN. HE IS ON RA AND AMBULATES TO THE RESTROOM W/SBA. HE HAS BEEN C/O ABD PAIN, NAUSEA, AND TREMORS TODAY. HIS CIWA SCORES HAVE RANGED FROM 4-15 TODAY. HE DID WELL ON ORAL INTAKE TODAY. NO NEEDS OR CONCERNS NOTED @ THIS TIME. BED IN LOW POSITION, CALL LIGHT AND PERSONAL BELONGINGS IN REACH.
--- NOTE | 2025-03-20 19:17 | NUR ---
ASSUMPTION OF CARE PT AWAKE SITTING UP IN BED,BEDSIDE REPORT COMPLETED.PT C/O PAIN,REQUESTING PRN PAIN MED.PRN DILAUDID ADMINISTERED BY DAYSHIFT NURSE.PLAN OF CARE REVIEWED,PT DENIES FURTHER NEEDS.CALL LIGHT AND PT'S ITEMS WITHIN REACH.SAFETY MEASURES IN PLACE.ASSESSMENT AND TREATMENT ONGOING PER CARE PLAN.
[2025-03-21 04:00] VITALS: BP 124/87
[2025-03-21 04:46] LABS: Hematocrit 40.2 % (37.0-53.0); Hemoglobin 13.6 g/dL (13.5-17.5); Mean Corpuscular HGB 30.6 pg (26.0-34.0); Mean Corpuscular HGB Conc 33.8 g/dL (31.5-36.5); Mean Corpuscular Volume 91 fL (80-100); Mean Platelet Volume 9.6 fL (9.1-12.4); Platelet Count 114 K/mm3 (150-400); RDW Coefficient Variation 13.2 % (11.7-14.2); RDW Standard Deviation 44.3 fL (35.1-46.3); Red Blood Cell Count 4.44 M/mm3 (4.30-5.90); White Blood Cell Count 3.04 K/mm3 (4.00-11.30)
[2025-03-21 05:25] LABS: Albumin, Blood 3.2 g/dL (3.4-5.0); Albumin/Globulin Ratio 0.9 (0.8-1.8); Bilirubin, Total 0.5 mg/dL (0.1-1.0); Bun/Creatinine Ratio 11.1 (12.0-20.0); Calcium, Blood 9.2 mg/dL (8.5-10.1); Creatinine, Blood 0.72 mg/dL (0.60-1.20); Globulin, Blood 3.4 g/dL (2.2-4.0); Total Protein, Blood 6.6 g/dL (6.4-8.2)
--- NOTE | 2025-03-21 06:04 | NUR ---
PT FELL ASLEEP AFTER RECEIVING NIGHT TIME MEDS INCLUDING PRN LIBRIUM AND COMPAZINE FOR NAUSEA.PT WAS DIFFICULT TO AROUSE THROUGHOUT THE SHIFT.BREATHING EVEN AND NONLABORED,VITAL SIGNS STABLE.PT SCORED 10 ON CIWA SCALE AT THE BEGINNING OF THE BUT SCORED 1 AT MIDNIGHT AND 0400.PT AWAKE AT THIS TIME,SITTING UP IN BED.PT REPORTS ABDOMINAL PAIN AT 9/10.PRN OXYCODONE 5MG PO GIVEN.PT ALSO REQUESTED PRN LIBRIUM FOR ALCOHOL WITHDRAWAL.PT SCORED 9 ON CIWA,PRN LIBRIUM 25 MG PO GIVEN.SEIZURE PRECAUTIONS IN PLACE.CALL LIGHT AND PT'S ITEMS WITHIN REACH.PT DENIES FURTHER NEEDS AT THIS TIME.
[2025-03-21 07:30] VITALS: BP 128/99
[2025-03-21] MEDS ORDERED: ChlordiazePOXIDE 25 MG Cap PO PRN ×2 (11:05→21:00)
[2025-03-21 11:47] VITALS: BP 116/79
[2025-03-21 15:08] VITALS: BP 113/75
--- NOTE | 2025-03-21 16:25 | NUR ---
PT A&Ox4 AND ABLE TO MAKE NEEDS KNOWN. HE IS ON RA AND IS A SBA FOR AMBULATION. PT SLEPT FOR MOST OF THE DAY TODAY. NOTIFIED PT THAT HE WAS BEING MOVED TO ANOTHER UNIT @ APPROXIMATELY 1600. GAVE REPORT TO MARY ARVIZU AND HIS STUDENT @ 0271. PT AND HIS PERSONAL BELONGINGS WERE TRANSFERRED TO [facility] BY @ 7902.
--- NOTE | 2025-03-21 17:23 | NUR ---
ARRIVAL PT ARRIVED TO UNIT FROM PCU. PT AMBULATORY IN ROOM. MEDICATED FOR NAUSEA. PAIN MEDS GIVEN PRIOR TO ARRIVAL PT REPORTS SOME RELIEF. WANTS TO SHOWER AFTER DINNER. PT REPORTS SOME WITHDRAWL SYMPTOMS, LIBRIUM GIVEN PRIOR TO ARRIVAL WELL. TOLERATING DIET AT THIS TIME.
[2025-03-21 19:25] VITALS: BP 135/95
[2025-03-21] MEDS ORDERED: Ondansetron 4 MG SoluTab MM PRN (21:00)
--- NOTE | 2025-03-21 21:00 | NUR ---
CALL TO HOSPITALIST AND SENIOR SOFTWARE TEST ENGINEER RESIDENT. PT NAUSEATED, HAD CLAMMY PALMS, VERBALIZED ARCEO, AUDITORY AND VISUAL HALLUCINATIONS, IS VISIBLY AGITATED AND ANXIOUS. CIWA SCORED AT 17, DISCUSSED WITH RUBBER AND POUNDER. CALL PLACED TO HOSPITALIST AND WAS INSTRUCTED TO CALL NIGHT RESIDENT. CALL PLACED TO RESIDENT DR. LEE AND NOTIFIED OF ABOVE SYMPTOMS. PROVIDER TO PLACE NEW ORDERS FOR ONE TIME DOSE OF ZOFRAN AND LIBRIUM. INFORMED PT OF ABOVE PLAN. PT VERBALIZED UNDERSTANDING.
[2025-03-21 21:02] VITALS: BP 127/94
--- NOTE | 2025-03-22 04:15 | NUR ---
SHIFT SUMMARY NOC. PT ADMIT FOR ETOH PANCREATITIS. PT A/OX4. PT C/O ABDOMINAL PAIN AND NAUSEA THIS SHIFT. SEE PREVIOUS NOTE REGARDING CIWA SX. PT ANXIOUS AND TEARFUL AT START OF SHIFT BUT IMPROVED AFTER NEW ORDER FOR ONE TIME PRN DOSE OF LIBRIUM. PT VERBALIZED THAT ONE TIME DOSE OF ZOFRAN HELPED NAUSEA FOR A SHORT PERIOD OF TIME. PT STATES PHENERGAN HELPS BETTER FOR NAUSEA, BUT TOO SOON FOR DOSE AT TIME OF REQUEST. REPORTED IMPROVEMENT IN PAIN AFTER OXYCODONE 5MG. PT VOIDING URINE. PT RESTING WITH EYES CLOSED AND CALL LIGHT IN REACH.
[2025-03-22 05:32] LABS: BASOPHILS ABSOLUTE AUTO 0.03 K/mm3 (0.00-0.23); BASOPHILS PERCENT AUTO 1 % (0-2); EOSINOPHILS ABSOLUTE AUTO 0.29 K/mm3 (0.00-0.68); EOSINOPHILS PERCENT AUTO 9 % (0-6); Hematocrit 39.8 % (37.0-53.0); Hemoglobin 13.4 g/dL (13.5-17.5); IMMATURE GRAN ABSOLUTE AUTO 0.01 K/mm3 (0.00-0.10); IMMATURE GRAN PERCENT AUTO 0 % (0-1); LYMPHOCYTES PERCENT AUTO 10 % (21-46); MONOCYTES ABSOLUTE AUTO 0.46 K/mm3 (0.16-1.47); MONOCYTES PERCENT AUTO 15 % (4-13); Mean Corpuscular HGB 30.9 pg (26.0-34.0); Mean Corpuscular HGB Conc 33.7 g/dL (31.5-36.5); Mean Corpuscular Volume 92 fL (80-100); Mean Platelet Volume 9.6 fL (9.1-12.4); NEUTROPHILS ABSOLUTE AUTO 2.01 K/mm3 (1.96-9.15); NEUTROPHILS PERCENT AUTO 65 % (41-73); Platelet Count 125 K/mm3 (150-400); RDW Coefficient Variation 13.2 % (11.7-14.2); RDW Standard Deviation 45.1 fL (35.1-46.3); Red Blood Cell Count 4.34 M/mm3 (4.30-5.90)
[2025-03-22 06:01] LABS: Albumin, Blood 3.3 g/dL (3.4-5.0); Bilirubin, Total 0.5 mg/dL (0.1-1.0); Bun/Creatinine Ratio 9.8 (12.0-20.0); Calcium, Blood 9.2 mg/dL (8.5-10.1); Creatinine, Blood 0.71 mg/dL (0.60-1.20); Globulin, Blood 3.4 g/dL (2.2-4.0); Potassium, Blood 3.9 mmol/L (3.5-5.5); Total Protein, Blood 6.7 g/dL (6.4-8.2)
[2025-03-22] MEDS ORDERED: ChlordiazePOXIDE 25 MG Cap PO PRN (06:40)
[2025-03-22 07:26] VITALS: BP 122/84
[2025-03-22] MEDS ORDERED: CHLO25 PO (11:55)
--- NOTE | 2025-03-22 13:49 | NUR ---
DISCHARGE: PACKET PRINTED AND PT EDUCATED. IV DC'D WNL, TIP INTACT. PT SCRIPTS SENT TO [facility]. PT LEFT UNIT AT ABOUT 1300 WITH FAMILY
== END 2025-03-22 13:07 | disposition home or self-care (01) | DRG 439 ==
LOC: ER 17:10 → SURS 20:22 → PCU 20:22 → ERHOLD 20:22 → PCU 21:39 → SURS 03-21 16:51
PROVIDERS: Emergency Medicine; Student in an Organized Health Care Education/Training Program; ADMIT Internal Medicine
DX: K85.20 Alcohol induced acute pancreatitis without necrosis or infection (principal); D61.818 Other pancytopenia; F10.239 Alcohol dependence with withdrawal, unspecified; E87.1 Hypo-osmolality and hyponatremia; K92.1 Melena; J44.9 Chronic obstructive pulmonary disease, unspecified; K76.0 Fatty (change of) liver, not elsewhere classified; R74.01 Elevation of levels of liver transaminase levels; D72.819 Decreased white blood cell count, unspecified; D69.6 Thrombocytopenia, unspecified; F11.11 Opioid abuse, in remission; E87.6 Hypokalemia; F41.0 Panic disorder [episodic paroxysmal anxiety]; Z89.022 Acquired absence of left finger(s); Z98.890 Other specified postprocedural states; Z98.41 Cataract extraction status, right eye; Z91.51 Personal history of suicidal behavior; Z86.14 Personal history of Methicillin resistant Staphylococcus aureus infection; Z79.899 Other long term (current) drug therapy; Z79.51 Long term (current) use of inhaled steroids; Z79.1 Long term (current) use of non-steroidal anti-inflammatories (NSAID); Z79.2 Long term (current) use of antibiotics; Z86.711 Personal history of pulmonary embolism
CPT/HCPCS: 36415; 80053; 80320; 81003; 83690; 83735; 84100; 85014; 85018; 85025; 93005; 93010; 94760; 94762; 96361; 96374; 96375; 99284-25; A9270; J0780; J1171; J1650; J1885; J2405; J3475; J3480; J7030

== ENCOUNTER 2025-05-06 13:11 | Inpatient (IN) | payer OTHER ==
[~2025-05-06] VITALS: Ht 177.8 cm; Wt 86.9 kg
[~2025-05-06 13:11] MED LIST changes: +AMOCLA875 PO; +Acetaminophen325 M1 PO; +CATAPRES-TTS 11 EAC1 TOP; +CHLO25 PO; +DOCU100 PO; +DULCOLAX400 MG/51 PO; +EFFEXOR XR150 MG PO; +GABA300 PO; +IBUP200 PO; +MELATONIN5 M1 PO; +OMEP20ER PO; +ONDA8 PO; +PROM25 PO; +QUETIAPINE FUM10011 PO; +SUDANYL PE5 MG PO; +VENL150ER PO
[2025-05-06 14:26] LABS: BASOPHILS ABSOLUTE AUTO 0.04 K/mm3 (0.00-0.23); BASOPHILS PERCENT AUTO 1 % (0-2); EOSINOPHILS ABSOLUTE AUTO 0.33 K/mm3 (0.00-0.68); EOSINOPHILS PERCENT AUTO 7 % (0-6); Hematocrit 42.9 % (37.0-53.0); Hemoglobin 15.2 g/dL (13.5-17.5); IMMATURE GRAN ABSOLUTE AUTO 0.03 K/mm3 (0.00-0.10); IMMATURE GRAN PERCENT AUTO 1 % (0-1); LYMPHOCYTES ABSOLUTE AUTO 0.56 K/mm3 (0.84-5.20); LYMPHOCYTES PERCENT AUTO 12 % (21-46); MONOCYTES ABSOLUTE AUTO 0.53 K/mm3 (0.16-1.47); MONOCYTES PERCENT AUTO 11 % (4-13); Mean Corpuscular HGB Conc 35.4 g/dL (31.5-36.5); Mean Corpuscular Volume 89 fL (80-100); NEUTROPHILS ABSOLUTE AUTO 3.26 K/mm3 (1.96-9.15); NEUTROPHILS PERCENT AUTO 69 % (41-73); NRBC ABSOLUTE 0.00 K/mm3 (0.00-0.02); NRBC Auto 0.0 /100 WBC (0.0-0.2); Platelet Count 189 K/mm3 (150-400); RDW Coefficient Variation 13.0 % (11.7-14.2); RDW Standard Deviation 42.4 fL (35.1-46.3)
[2025-05-06] MEDS ORDERED: PHENobarbital Sodium 65MG / ML 1ML Vial IV ONE ×2 (14:35→15:10)
[2025-05-06] MEDS ORDERED: Ondansetron HCl 2 MG / ML 2ML Vial IV ONE (14:35)
[2025-05-06] MEDS ORDERED: Midazolam HCl 1MG / ML 2ML Vial IV ONE (15:15)
[2025-05-06 16:10] LABS: Ethanol (Alcohol), Blood, Med <3 mg/dL
[2025-05-06 16:21] LABS: Alanine Aminotransfer (ALT/SGP 82 U/L (12-78); Albumin, Blood 3.2 g/dL (3.4-5.0); Albumin/Globulin Ratio 0.9 (0.8-1.8); Anion Gap 9 mmol/L (3-11); Aspartate Aminotrans (AST/SGOT 77 U/L (12-37); Bilirubin, Total 0.9 mg/dL (0.1-1.0); Blood Urea Nitrogen 13 mg/dL (8-24); CO2, Blood 29 mmol/L (21-32); Calcium, Blood 8.6 mg/dL (8.5-10.1); Chloride, Blood 98 mmol/L (98-108); Creatinine, Blood 0.94 mg/dL (0.60-1.20); Globulin, Blood 3.4 g/dL (2.2-4.0); Glucose, Blood 101 mg/dL (70-99); Potassium, Blood 4.6 mmol/L (3.5-5.5); Sodium, Blood 131 mmol/L (136-145); Total Protein, Blood 6.6 g/dL (6.4-8.2)
[2025-05-06] MEDS ORDERED: Ondansetron HCl 2 MG / ML 2ML Vial IV PRN (17:50)
[2025-05-06] MEDS ORDERED: Diazepam 5 MG / ML 2ML SYR IV PRN ×2 (17:50)
[2025-05-06] MEDS ORDERED: Albuterol 2.5 MG/3 ML VIAL INH PRN (18:00)
[2025-05-06 18:56] LABS: U Amphetamine Screen Not Detected; U Barbituate Screen DETECTED; U Benzodiazapine Screen DETECTED; U Cocaine Screen Not Detected; U Methadone Screen DETECTED; U Methamphetamine Screen Not Detected; U Opiates Screen Not Detected
[2025-05-06 18:57] LABS: U Buprenorphine Screen Not Detected; U Oxycodone Screen Not Detected; U Phencyclidine Screen Not Detected
[2025-05-06 18:58] LABS: U Cannabinoids Screen Not Detected
[2025-05-06 20:30] VITALS: BP 130/107
[2025-05-06] MEDS ORDERED: CLON.5 PO (23:12)
[2025-05-06] MEDS ORDERED: Magnesium Sulf 2 GM/Water 50ML 50 ML IV ONE (23:50)
[2025-05-07] VITALS (8 sets, daily range): BP systolic 94–149; BP diastolic 63–105
[2025-05-07] MEDS ORDERED: Pantoprazole Sodium 40 MG Injection IV SCH (06:00)
[2025-05-07 06:46] LABS: Hematocrit 40.7 % (37.0-53.0); Hemoglobin 13.7 g/dL (13.5-17.5); Mean Corpuscular HGB Conc 33.7 g/dL (31.5-36.5); Mean Corpuscular Volume 92 fL (80-100); NRBC ABSOLUTE 0.00 K/mm3 (0.00-0.02); NRBC Auto 0.0 /100 WBC (0.0-0.2); Platelet Count 122 K/mm3 (150-400); RDW Coefficient Variation 12.6 % (11.7-14.2); RDW Standard Deviation 42.4 fL (35.1-46.3)
[2025-05-07 07:07] LABS: Alanine Aminotransfer (ALT/SGP 86.0 U/L (12-78); Albumin, Blood 3.3 g/dL (3.4-5.0); Albumin/Globulin Ratio 1.0 (0.8-1.8); Anion Gap 6.0 mmol/L (3-11); Aspartate Aminotrans (AST/SGOT 74.0 U/L (12-37); Bilirubin, Total 0.7 mg/dL (0.1-1.0); Blood Urea Nitrogen 9.0 mg/dL (8-24); CO2, Blood 31.0 mmol/L (21-32); Calcium, Blood 8.6 mg/dL (8.5-10.1); Chloride, Blood 102.0 mmol/L (98-108); Creatinine, Blood 0.79 mg/dL (0.60-1.20); Globulin, Blood 3.3 g/dL (2.2-4.0); Glucose, Blood 113.0 mg/dL (70-99); Magnesium, Blood 2.4 mg/dL (1.6-2.4); Potassium, Blood 4.0 mmol/L (3.5-5.5); Sodium, Blood 135.0 mmol/L (136-145); Total Protein, Blood 6.6 g/dL (6.4-8.2)
--- NOTE | 2025-05-07 07:24 | NUR ---
SHIFT SUMMARY: PT A&OX4 COOPERATIVE AND ABLE TO MAKE NEEDS KNOWN. VSS ON RA. ETOH WITHDRAWAL. CIWA RANGE 10-26. MEDICATED PER EMAR. PT C/O RUQ PAIN. MEDICATED PER EMAR. MG 1.5. RESIDENT CONSULTED AND ORDERED MAG REPLACEMENT. MAG REPLACED DURING SHIFT. LR @ 150 ML/HR. USES URINAL AT BEDSIDE. MED REC COMPLETED. BED IS LOW AND LOCKED. CALL LIGHT IS WITHIN REACH. REPORT GIVEN TO DAY SHIFT NURSE.
[2025-05-07] MEDS ORDERED: Enoxaparin 40 MG/0.4 ML SYR SC SCH (09:00)
[2025-05-07] MEDS ORDERED: Multivitamins 1 Tab PO SCH (09:00)
[2025-05-07] MEDS ORDERED: Folic Acid 1 MG TAB PO SCH (09:00)
--- NOTE | 2025-05-07 13:49 | NUR ---
ASSUMPTION OF CARE: PATIENT IS ALERT AND ORIENTED X4 VERY CLOSE WITH TIME AND DATE, HAS A CLOUDED SENSORIUM AT TIMES, DIFFICULTY WITH SOME SPECIFIC DETAILS, BUT ABLE TO USE THE CALL LIGHT, PLEASANT AND COOPERATIVE, DOES ENDORSE SYMPTOMS MOST OF THE TIME, CIWA HAS BEEN VERY VERIABLE FROM - FOR THIS RN AND DOES REQUIRE LARGE DOSING FOR CONTROL OF WITHDRAWAL, PROVIDER AWARE, LR STOPPED AND VERBAL OK FROM DR. ALEXANDER, PATIENT HAS BEEN ABLE TO TOLERATE FLUIDS WELL, APPROXIMATELY 1500mL SINCE START OF THE SHIFT. DENIES CHETS PAIN PRESSURE OR SOB AT REST. VOIDING WELL DENEIS PAIN TENDERNESS OR DIFFICULTY URINATING. DID REQUEST MIRALAX, PROVIDER AWAER, NICOTINE GUM NOW ON DEC. PATIENT ON TELE NO EVENTS CURRENLTY. SPO2 >94% AT REST ON RA. PLAN OF CARE CONTINUES.
--- NOTE | 2025-05-07 19:38 | NUR ---
ASSUMPTION OF CARE ASSUMED PT'S CARE AT 1900,BEDSIDE REPORT COMPLETED.PT IN BED WIDE AWAKE.PLAN OF CARE REVIEWED.DISCUSSED THE ALCOHOL WITHDRAWAL TREATMENT PROTOCOL IN PLACE.PT VERBALIZES UNDERSTANDING.TEACHING ON FLUID INTAKE DUE TO LOW SODIUM COMPLETED.PT VERBALIZES UNDERSTANDING.PT DENIES PAIN,DENIES NAUSEA/VOMITING,DENIES NEEDS AT THIS TIME.CALL LIGHT AND PT'S ITEMS WITHIN REACH.MONITORING ONGOING PER CAREPLAN.
[2025-05-08 04:30] VITALS: BP 117/84
--- NOTE | 2025-05-08 06:26 | NUR ---
PT MONITORED THROUGH THE SHIFT,CIWA ASSESSMENT AND TREATMENT COMPLETED ORDERED.PT FELL ASLEEP AT MIDNIGHT AFTER RECEIVING PRN ATIVAN 4MG PO AND COMPAZINE FOR NAUSEA.PT STILL SLEEPING AT THIS TIME,RESPONDS TO VOICE BUT GOES BACK TO SLEEP.CALL LIGHT AND PT'S ITEMS WITHIN REACH.MONITORING ONGOING PER CAREPLAN.
[2025-05-08 07:30] VITALS: BP 132/99
[2025-05-08 10:55] VITALS: BP 139/100
[2025-05-08 10:55] LABS: Hematocrit 45.1 % (37.0-53.0); Hemoglobin 15.3 g/dL (13.5-17.5); Mean Corpuscular HGB Conc 33.9 g/dL (31.5-36.5); Mean Corpuscular Volume 92 fL (80-100); NRBC ABSOLUTE 0.00 K/mm3 (0.00-0.02); NRBC Auto 0.0 /100 WBC (0.0-0.2); Platelet Count 157 K/mm3 (150-400); RDW Coefficient Variation 12.3 % (11.7-14.2); RDW Standard Deviation 40.8 fL (35.1-46.3)
[2025-05-08 11:15] LABS: Alanine Aminotransfer (ALT/SGP 94.0 U/L (12-78); Albumin, Blood 4.1 g/dL (3.4-5.0); Albumin/Globulin Ratio 1.1 (0.8-1.8); Anion Gap 8.0 mmol/L (3-11); Aspartate Aminotrans (AST/SGOT 72.0 U/L (12-37); Bilirubin, Total 0.8 mg/dL (0.1-1.0); Blood Urea Nitrogen 8.0 mg/dL (8-24); CO2, Blood 30.0 mmol/L (21-32); Calcium, Blood 9.9 mg/dL (8.5-10.1); Chloride, Blood 99.0 mmol/L (98-108); Creatinine, Blood 0.75 mg/dL (0.60-1.20); Globulin, Blood 3.8 g/dL (2.2-4.0); Glucose, Blood 119.0 mg/dL (70-99); Magnesium, Blood 2.0 mg/dL (1.6-2.4); Phosphorus, Blood 3.2 mg/dL (2.5-4.9); Potassium, Blood 4.2 mmol/L (3.5-5.5); Sodium, Blood 133.0 mmol/L (136-145); Total Protein, Blood 7.9 g/dL (6.4-8.2)
--- NOTE | 2025-05-08 11:57 | NUR ---
SHIFT SUMMARY: PATIENT IS ALERT AND ORINETED X 4, HOWEVER, EXTREMELY MORE ANXIOUS TODAY, PLAN TO DECREASE AMOUNT OF PRN MEDICATIONS. DR. ALEXANDER ROUNDED AND PLAN FOR DECREASE BENZODIAZAPINES, PATIENT RN AND PROVIDER ATTEMPTING TO DO THE ATIVAN 4 mg Q 6 HOURS. DENIES CHEST EWING PRESSURE, PROVIDER AWARE OF BEHAVIORAL ISSUES, SCORING CIWA IS VERY DEPENDENT ON PATIENT, PATIENT ID EDUCATED ON SPECIFIC QUESTIONS AND APPEARS TO HALLMARK HIS SYMPTOMS PROVIDER AWARE. PATIENT ALSO HAS SCRATCHED HIMSELF TO CUT ARM, PROVIDER AWARE. DENIES CHEST PAIN PRESSURE OR SOB. PATIENT HAS BEEN LESS ANXIOUS KNOWNING PLAN. ALL CONCERNS ADDRESSED AT THIS TIME.
[2025-05-08 14:56] VITALS: BP 141/103
--- NOTE | 2025-05-08 19:00 | NUR ---
EOS: PATIENT IS OVERALL IMPROVED WITH PLAN ESTABLISHED BY DR. ALEXANDER, OVERALL IMPROVING. NO CHANGES FROM PREVIOUS SUMMARY. STILL DENIES CHEST PAIN PRESSURE OR SOB. CIWA IMPROVING. NO LIBRIUM GIVEN AFTER MORNING DOSE. AND 4MG Q 6 HOURS CONTROLLING SYMPTOMS.
[2025-05-08 19:22] VITALS: BP 135/114
[2025-05-09 00:06] VITALS: BP 121/80
[2025-05-09 03:58] VITALS: BP 114/90
--- NOTE | 2025-05-09 04:15 | NUR ---
SHIFT SUMMARY ADMITTED FOR ETOH WITHDRAWAL. FULL CODE. HE IS ON RA, 1 ASSIST. HE IS A&O X4, BUT STATES HE IS ANXIOUS. TELEMETRY: NSR @ 94 BPM. ATIVAN GIVEN THIS SHIFT Q6 PER REPORTS. CIWAS HAVE BEEN 7 FOR ME. HE IS WANTING TO EAT LOTS OF SNACKS THIS SHIFT. [facility] IS FOLLOWING. POSSIBLE PLAN IS FOR DC HOME WHEN STABLE.
[2025-05-09 07:31] LABS: Alanine Aminotransfer (ALT/SGP 72 U/L (12-78); Albumin, Blood 3.4 g/dL (3.4-5.0); Albumin/Globulin Ratio 0.9 (0.8-1.8); Aspartate Aminotrans (AST/SGOT 60 U/L (12-37); Bilirubin, Total 0.8 mg/dL (0.1-1.0); Blood Urea Nitrogen 10 mg/dL (8-24); Calcium, Blood 8.7 mg/dL (8.5-10.1); Creatinine, Blood 0.67 mg/dL (0.60-1.20); Globulin, Blood 3.8 g/dL (2.2-4.0); Glucose, Blood 101 mg/dL (70-99); Total Protein, Blood 7.2 g/dL (6.4-8.2)
[2025-05-09 07:36] LABS: Anion Gap Unable to Calculate mmol/L (3-11)
[2025-05-09 08:54] LABS: Anion Gap 10.0 mmol/L (3-11); CO2, Blood 29.0 mmol/L (21-32); Chloride, Blood 97.0 mmol/L (98-108); Potassium, Blood 3.8 mmol/L (3.5-5.5); Sodium, Blood 132.0 mmol/L (136-145)
[2025-05-09 10:13] VITALS: BP 108/63
[2025-05-09] MEDS ORDERED: B-1100 M1 PO ×2 (11:24→11:26)
[2025-05-09] MEDS ORDERED: DAILY-VITE1 EAC1 PO (11:25)
[2025-05-09] MEDS ORDERED: Hair, Skin & N1 EACH PO (11:28)
== END 2025-05-09 12:44 | disposition home or self-care (01) | DRG 897 ==
LOC: ER 13:11 → PCU 17:41
PROVIDERS: Emergency Medicine; Internal Medicine; Nurse Practitioner Acute Care; Physician Assistant; ADMIT Student in an Organized Health Care Education/Training Program
DX: F10.239 Alcohol dependence with withdrawal, unspecified (principal); F11.20 Opioid dependence, uncomplicated; E87.1 Hypo-osmolality and hyponatremia; J44.9 Chronic obstructive pulmonary disease, unspecified; R44.1 Visual hallucinations; K21.9 Gastro-esophageal reflux disease without esophagitis; K76.0 Fatty (change of) liver, not elsewhere classified; R74.01 Elevation of levels of liver transaminase levels; F17.210 Nicotine dependence, cigarettes, uncomplicated; F41.1 Generalized anxiety disorder; K70.9 Alcoholic liver disease, unspecified; Z86.711 Personal history of pulmonary embolism; Z79.51 Long term (current) use of inhaled steroids; Z79.899 Other long term (current) drug therapy; Z79.1 Long term (current) use of non-steroidal anti-inflammatories (NSAID); Z79.2 Long term (current) use of antibiotics
CPT/HCPCS: 36415; 76705; 80051; 80053; 80320; 82140; 83690; 83735; 84100; 85025; 85027; 93005; 93010; 94762; 96361; 96374; 96375; 99285-25; A9270; J1650; J2250; J2405; J2470; J2560; J3360; J3475; J7120; Q0164

== ENCOUNTER 2025-05-20 19:20 | Inpatient (IN) | payer OTHER ==
[~2025-05-20] VITALS: Ht 175.3 cm; Wt 83.1 kg
[~2025-05-20 19:20] MED LIST changes: +B-1100 M1 PO; +CLON.5 PO; +DAILY-VITE1 EAC1 PO; +Hair, Skin & N1 EACH PO
[2025-05-20 20:26] LABS: Source, Urine Straight Cath
[2025-05-20 20:33] LABS: BASOPHILS ABSOLUTE AUTO 0.03 K/mm3 (0.00-0.23); BASOPHILS PERCENT AUTO 1 % (0-2); EOSINOPHILS ABSOLUTE AUTO 0.04 K/mm3 (0.00-0.68); EOSINOPHILS PERCENT AUTO 1 % (0-6); Hematocrit 39.0 % (37.0-53.0); Hemoglobin 13.7 g/dL (13.5-17.5); IMMATURE GRAN ABSOLUTE AUTO 0.00 K/mm3 (0.00-0.10); IMMATURE GRAN PERCENT AUTO 0 % (0-1); LYMPHOCYTES ABSOLUTE AUTO 0.40 K/mm3 (0.84-5.20); LYMPHOCYTES PERCENT AUTO 11 % (21-46); MONOCYTES ABSOLUTE AUTO 0.22 K/mm3 (0.16-1.47); MONOCYTES PERCENT AUTO 6 % (4-13); Mean Corpuscular HGB Conc 35.1 g/dL (31.5-36.5); Mean Corpuscular Volume 88 fL (80-100); NEUTROPHILS ABSOLUTE AUTO 3.05 K/mm3 (1.96-9.15); NEUTROPHILS PERCENT AUTO 82 % (41-73); NRBC ABSOLUTE 0.00 K/mm3 (0.00-0.02); NRBC Auto 0.0 /100 WBC (0.0-0.2); Platelet Count 219 K/mm3 (150-400); RDW Coefficient Variation 12.0 % (11.7-14.2); RDW Standard Deviation 38.5 fL (35.1-46.3)
[2025-05-20 20:39] LABS: Bilirubin, Urine Neg (Neg); Color, Urine Yellow (P-Yellow); Glucose Qualitative, Urine Neg (Neg); Ketones, Urine Neg (Neg); Leukocyte Esterase, Urine Neg (Neg); Protein, Urine Neg (Neg); Specific Gravity, Urine 1.010 (1.003-1.022); Urobilinogen, Urine NORM (Normal)
[2025-05-20 20:57] LABS: Alanine Aminotransfer (ALT/SGP 41.0 U/L (12-78); Albumin, Blood 3.8 g/dL (3.4-5.0); Albumin/Globulin Ratio 1.2 (0.8-1.8); Anion Gap 13.0 mmol/L (3-11); Aspartate Aminotrans (AST/SGOT 34.0 U/L (12-37); Bilirubin, Total 0.5 mg/dL (0.1-1.0); Blood Urea Nitrogen 11.0 mg/dL (8-24); CO2, Blood 25.0 mmol/L (21-32); Calcium, Blood 8.5 mg/dL (8.5-10.1); Chloride, Blood 96.0 mmol/L (98-108); Creatinine, Blood 0.65 mg/dL (0.60-1.20); Globulin, Blood 3.3 g/dL (2.2-4.0); Glucose, Blood 108.0 mg/dL (70-99); Potassium, Blood 4.0 mmol/L (3.5-5.5); Sodium, Blood 130.0 mmol/L (136-145); Total Protein, Blood 7.1 g/dL (6.4-8.2)
[2025-05-20] MEDS ORDERED: NS 1,000 ML IV SCH (23:30)
[2025-05-20] MEDS ORDERED: CefTRIAXone Sodium 1,000 MG in NS 50 ML IV ONE (23:30)
[2025-05-20 23:44] LABS: Ethanol (Alcohol), Blood, Med 252.0 mg/dL
[2025-05-21 00:41] LABS: Prothrombin Time Results 12.4 Sec (9.7-11.5)
[2025-05-21] MEDS ORDERED: D5W-1/2NS 1,000 ML IV SCH (08:00)
[2025-05-21 10:33] VITALS: BP 129/78
--- NOTE | 2025-05-21 11:01 | NUR ---
ASSUMPTION OF CARE: PT ARRIVED TO MEDICAL FLOOR FROM ED VIA [facility], ESCORTED BY LAWYERS. THIS RN ASSUMED CARE OF PATIENT. SLEEPING BUT ROUSABLE DURING TRANSFER FROM [place] TO BED. NS @ 100mL/hr VIA RIGHT HAND. SALINE LOCKED LFA. ABLE PATENT AND DRAINING ARTRUO URINE TO GRAVITY. PT SKIN CLAMMY. BREATHING EVEN AND UNLABORED; SHALLOW UPON LUNG SOUND ASSESSMENT. FINE, BIBASILAR CRACKLES. NORMAL RATE AND RHYTHM. MED REC AND INTAKE COMPLETED. WILL CALL [facility] TO CONFIRM PT'S LAST TIME AND DOSE OF METHADONE. BED IN LOWEST POSITION. CALL LIGHT WITHIN REACH. ACUTE NEEDS MET.
--- NOTE | 2025-05-21 12:19 | NUR ---
PER DR HERNANDEZ: OKAY TO CONTINUE METHADONE @ 70MG QAM. GIVE FIRST DOSE NOW.
[2025-05-21 15:22] VITALS: BP 160/103
--- NOTE | 2025-05-21 15:45 | NUR ---
PATIENT VITALS TRENDING UP. HAS RECEIVED 100mg LIBRIUM AND 4mg PO LORAZEPAM SINCE ADMISSION AT 1030. CIWA SCORES 14 x2, NOW 26. DIAPHORETIC, TREMULOUS AND ANXIOUS. PLAYING ON PHONE "TRYING TO KEEP BRAIN BUSY". CALL TO DR HERNANDEZ WHO ORDERED TRANSFER TO ICU FOR PRECIDEX DRIP. CHARGE NOTIFIED; PT TO TRANSFER TO ICU10 ONCE BED BECOMES AVAILABLE (CURRENT PATIENT DISCHARGING). PT NOTIFIED.
[2025-05-21] MEDS ORDERED: Diazepam 5 MG / ML 2ML SYR IV PRN (16:05)
--- NOTE | 2025-05-21 17:31 | NUR ---
PATIENT TRANSFERRED TO ICU VIA GURNEY BY THIS RN AND SH[facility]LEY [facility] WITH ALL BELONGINGS AND PATIENT CHART.
[2025-05-21] MEDS ORDERED: Ondansetron HCl 2 MG / ML 2ML Vial IV PRN (18:05)
--- NOTE | 2025-05-21 18:44 | NUR ---
TRANSFER TO ICU PT TRANSFERED TO ICU 10 AT 1721 FROM MEDICAL FLOOR DUE TO INCREASE IN CIWA AND ALCOHOL WITHDRAWLS. PT CIWA 20'S AND PRECEDEX STARTED UPON ARRIVAL AT 0.2MCG/KG/MIN. HE IS A/O X4 AND ABLE TO MAKE HIS NEEDS KNOWN. SPO2 >96% ON RA. HR 60'S. SBP 150'S. TOLERATING PO MODERATLY; C/O MILD NAUSEA, NOTIFIED DR HERNANDEZ WHO PROVIDED ORDERS FOR ZOFRAN. ABEL IN PLACE AND DRAINING TO GRAVITY. D5 1/2NS INFUSING AT 100ML/HR. ALSO DISCUSSED WITH DR HERNANDEZ REGARDING INCREASE IN WITHDRAWL SYMPTOMS, LIBRIUM INCREASED. WILL REPORT TO PM RN WHEN AVAILABLE.
[2025-05-21 19:00] VITALS: BP 112/94
[2025-05-21 21:00] VITALS: BP 129/92
[2025-05-21 22:00] VITALS: BP 137/99
[2025-05-21 23:00] VITALS: BP 124/97
[2025-05-22] VITALS (14 sets, daily range): BP systolic 117–142; BP diastolic 81–122
[2025-05-22 03:32] LABS: Anion Gap 8.0 mmol/L (3-11); Blood Urea Nitrogen 6.0 mg/dL (8-24); CO2, Blood 29.0 mmol/L (21-32); Calcium, Blood 7.9 mg/dL (8.5-10.1); Chloride, Blood 103.0 mmol/L (98-108); Creatinine, Blood 0.77 mg/dL (0.60-1.20); Glucose, Blood 117.0 mg/dL (70-99); Magnesium, Blood 2.2 mg/dL (1.6-2.4); Potassium, Blood 3.6 mmol/L (3.5-5.5); Sodium, Blood 136.0 mmol/L (136-145)
--- NOTE | 2025-05-22 04:52 | NUR ---
SHIFT SUMMARY PT HERE FOR ETOH WD- LAST DRINK 05/21, DRINKS 12 WHITE CLAWS/DAY. A/OX4, ABLE TO MAKE NEEDS KNOWN, USES CALL LIGHT. PRECEDEX INFUSING. VSS ON ROOM AIR, HR 50'S, SATS >92%. LOWEST CIWA- 3, HIGHEST CIWA-16. PT MEDICATED WITH PO ATIVAN AND LIBRIUM W/ RELIEF. PT REPORTS AUDITORY/VISUAL HALLUCINATIONS, TREMURS, DIAPHORETIC, NAUSEA AND ARCEO WHEN CIWA SCORE IS HIGH. PT REPORTED ZOFRAN DOES NOT WORK WELL FOR HIM, PHENERGAN ADDED TO MAR, PT REPORTS RELIEF. ABEL DRAINING. BM X4 UP TO COMMODE THIS SHIFT. ONE INCONTINENT EPISODE. PT IS VERY INDEPENDENT ANDD PREFERS TO CLEAN HIMSELF UP AFTER TOILETING. LABS IMPROVED THIS AM. NO ACUTE EVENTS, CALL LIGHT IN REACH.
--- NOTE | 2025-05-22 13:56 | NUR ---
PT APPEARS SOMNOLENT ON PRECEDEX 0.3MG/KG/HR. CIWA 26 BASED ON PT REPORTS BUT SCORING MORE AT 15-18. REDUCED PRECEDEX TO 0.1MG/KG/HR. ADMINISTERED PRN DOSING OF LIBRIUM AND ATIVAN PER MAR
--- NOTE | 2025-05-22 18:06 | NUR ---
SHIFT SUMMARY NEURO: ALERT AND ORIENTED X4. CALLS APPROPRIATELY. ABLE TO MAKE HIS NEEDS KNOWN. CIWA 12-26 TODAY. PRN MEDICATIONS LIBRIUM, ATIVAN AND PRECEDEX USED TO MANAGE ETOH WITHDRAWL. LIBRIUM MAX DOSE 400MG USED IN LAST 24HRS. ONLY ATIVAN ADMINISTERED FOR LAST CIWA. PRECEDEX RUNNING AT 0.1MG/KG/HR. PULM: LUNGS CLEAR TO AUSCULATION. SPO2 95% OR GREATER ON RA CARDIAC: SB/SR, PRECEDEX DOSE REDUCED FROM 0.3MG/KG/HR DUE TO SOMOLENCE RASS -1/-2. PT CLOSING EYES WHILE SPEAKING AND FALLING ASLEEP DURING CONVERSATION. HR 47-50S. RASS/HR IMPROVED AFTER STOPPING. GI: NORMOACTIVE BOWEL TONES. ABODMEN IS SOFT/NON TENDER. COMPLAINTS OF DIARRHEA WITH LACTULOSE, PER DR RIZZO THIS AM OK TO REFUSE. MILD/MOD NAUSEA TODAY - NO EMESIS OR RETCHING. PRN PHENEGREN USED VS ZOFRAN QTC 400S. : CLEAR YELLOW URINE, ABEL REMOVED 1400 DUE TO VOIDE BY 1999. SKIN INTACT, PRIOR TRACH SITE SCAR. MOOD: PT VOICED MANY THOUGHTS OF SADNESS AND DEPRESSION. PARTIAL LIFE REVIEW DONE WITH ACTIVE LISTNEING. PROVIDED REASSURANCE. DISCUSSED HEALTHY COPING MECHANISMS AND FOLLOW UP WITH HIS PROVIDER POST HOSPITAL ADMISSION. PT MAY BENEFIT FROM PSYCH EVAL AFTER WITHDRAWL S/S RESOLVE
[2025-05-23] VITALS (14 sets, daily range): BP systolic 96–143; BP diastolic 62–109
[2025-05-23] MEDS ORDERED: Albuterol HFA200 ACT/6.7 GM INH INH PRN (01:50)
--- NOTE | 2025-05-23 06:39 | NUR ---
PT PLANS FOR MEDS FOR THE DAY AT 0530, PT ASKED ME TO "TURN DOWN THE IV MED" WHEN I ASKED HIM WHY HE SAID "I DON'T WANT TO BE TIRED ALL DAY". HE THEN TOLD ME HE FELT "SHAKY AND WAS HEARING THINGS. DO I HAVE ANYTHING AVAILABLE? I'M TRYING TO HOLD OUT UNTIL MY METHADONE IS DUE SO I CAN GROUP EVERYTHING TOGETHER."
[2025-05-23] MEDS ORDERED: NS 250 ML IV PRN (07:25)
[2025-05-23 15:51] LABS: Alanine Aminotransfer (ALT/SGP 77.0 U/L (12-78); Albumin, Blood 3.3 g/dL (3.4-5.0); Albumin/Globulin Ratio 1.1 (0.8-1.8); Anion Gap 8.0 mmol/L (3-11); Aspartate Aminotrans (AST/SGOT 123.0 U/L (12-37); Bilirubin, Total 0.5 mg/dL (0.1-1.0); Blood Urea Nitrogen 4.0 mg/dL (8-24); CO2, Blood 28.0 mmol/L (21-32); Calcium, Blood 8.1 mg/dL (8.5-10.1); Chloride, Blood 99.0 mmol/L (98-108); Creatinine, Blood 0.78 mg/dL (0.60-1.20); Globulin, Blood 3.0 g/dL (2.2-4.0); Glucose, Blood 96.0 mg/dL (70-99); Potassium, Blood 3.8 mmol/L (3.5-5.5); Sodium, Blood 131.0 mmol/L (136-145); Total Protein, Blood 6.3 g/dL (6.4-8.2)
--- NOTE | 2025-05-23 17:50 | NUR ---
WENT TO GIVE PT MEDS WHILE PRIMARY NURSE WAS ADMITING A NEW PT. PT STATED THAT HE HATES THIS HOSPITAL. WE DO NOTHING FOR HIM AND HE WOULD RATHER GO HOME AND DRINK HIMSELF TO [place]ATH[place] THEN STAY HERE. STATES DYING WOULD BE BETTER FOR HIM AT THIS POINT. STATES THAT HE HAS A PLAN TO WALK OUT OF HERE AND FIND THE NEAREST DRUG DEALER AND HOPE WHATEVER THEY GIVE HIM DOESNT HAVE FENTANYL. ASKED IF I CAN GET THE MD FOR HIM, STATES THAT PRIMARY NURSE AND MD ARE WORKING AGAINST HIM AND ARE OFFERING HIM NO HELP WITH GETTING LIBRIUM. PRIMARY NURSE ALERTED WELL CHARGE NURSE.
--- NOTE | 2025-05-23 19:19 | NUR ---
Summary. Pt requiring more medication this shift, Precedex titrated up to 0.8 for agitation, currently at 0.6 mcg/kg/hr. Pt agitated at times, making comments about leaving and aquiring drugs on the street. This afternoon pt made multiple comments about self-harm to break RN, see note. Suicide precautions initiated, physician notified. Pt mentation labile, difficult to assess risk. See chart for further details.
--- NOTE | 2025-05-23 19:30 | NUR ---
ASSUMPTION OF CARE: ASSUMED CARE AT START OF SHIFT (1899). PT IS DOING WELL AND RESTING IN BED. THEY ARE ALERT AND ABLE TO FOLLOW COMMANDS, BUT APPEARED RESTLESS AND AGITATED. ON PRECEDX GTT PER EMR ORDERS. PT IS GOING THROUGH ETOH WITHDRAWLS, CIWA SCORE: 31. PT HAS 1:1 SITTER FOR SUICIDAL IDEATIONS. WHEN TALKING TO PT, PT STATES THEY AREN'T CURRENTLY HAVING THOUGHT OF SUICIDE BUT ARE VERY FRUSTRATED WITH THEIR CARE AND OVER THE PAST YEARS THEY DON'T FEEL LIKE THEY ARE RECIEVING THE CARE THEY NEED. LUNG SOUNDS ARE CLEAR AND EQUAL BILATERALLY, O2@ 1LPM VIA NC SPO2 >95%. SINUS RYTHM WITH SBP:130'S MAP >65 HR:80'S. IV: POWERGLIDE IN RUE. PT ABLE TO USE BEDSIDE URINAL. LINES AND CORDS PLACED OUT OF REACH. CALL LIGHT PLACED WITHIN REACH.
[2025-05-24] VITALS (25 sets, daily range): BP systolic 81–143; BP diastolic 63–100
[2025-05-24 04:35] LABS: BASOPHILS ABSOLUTE AUTO 0.02 K/mm3 (0.00-0.23); BASOPHILS PERCENT AUTO 1 % (0-2); EOSINOPHILS ABSOLUTE AUTO 0.06 K/mm3 (0.00-0.68); EOSINOPHILS PERCENT AUTO 3 % (0-6); Hematocrit 36.6 % (37.0-53.0); Hemoglobin 12.4 g/dL (13.5-17.5); IMMATURE GRAN ABSOLUTE AUTO 0.01 K/mm3 (0.00-0.10); IMMATURE GRAN PERCENT AUTO 0 % (0-1); LYMPHOCYTES ABSOLUTE AUTO 0.28 K/mm3 (0.84-5.20); LYMPHOCYTES PERCENT AUTO 12 % (21-46); MONOCYTES ABSOLUTE AUTO 0.35 K/mm3 (0.16-1.47); MONOCYTES PERCENT AUTO 15 % (4-13); Mean Corpuscular HGB Conc 33.9 g/dL (31.5-36.5); Mean Corpuscular Volume 90 fL (80-100); NEUTROPHILS ABSOLUTE AUTO 1.70 K/mm3 (1.96-9.15); NEUTROPHILS PERCENT AUTO 70 % (41-73); NRBC ABSOLUTE 0.00 K/mm3 (0.00-0.02); NRBC Auto 0.0 /100 WBC (0.0-0.2); Platelet Count 95 K/mm3 (150-400); RDW Coefficient Variation 11.9 % (11.7-14.2); RDW Standard Deviation 38.7 fL (35.1-46.3)
[2025-05-24 04:51] LABS: Alanine Aminotransfer (ALT/SGP 81.0 U/L (12-78); Albumin, Blood 3.2 g/dL (3.4-5.0); Albumin/Globulin Ratio 1.0 (0.8-1.8); Anion Gap 9.0 mmol/L (3-11); Aspartate Aminotrans (AST/SGOT 113.0 U/L (12-37); Bilirubin, Total 0.5 mg/dL (0.1-1.0); Blood Urea Nitrogen 5.0 mg/dL (8-24); CO2, Blood 30.0 mmol/L (21-32); Calcium, Blood 8.2 mg/dL (8.5-10.1); Chloride, Blood 98.0 mmol/L (98-108); Creatinine, Blood 0.88 mg/dL (0.60-1.20); Globulin, Blood 3.3 g/dL (2.2-4.0); Glucose, Blood 100.0 mg/dL (70-99); Magnesium, Blood 2.0 mg/dL (1.6-2.4); Phosphorus, Blood 4.6 mg/dL (2.5-4.9); Potassium, Blood 3.6 mmol/L (3.5-5.5); Sodium, Blood 133.0 mmol/L (136-145); Total Protein, Blood 6.5 g/dL (6.4-8.2)
--- NOTE | 2025-05-24 06:28 | NUR ---
SHIFT SUMMARY: PT IS DOING WELL AND RESTING IN BED. NO ACUTE CHANGES THROUGHOUT THE SHIFT. PT WAS ABLE TO SLEEP MOST OF THE NIGHT. PT WAS PLACED ON O2 @ 1LPM VIA NC AND SPO2 >95%. LUNG SOUNDS ARE CLEAR AND EQUAL BILATERALLY. SINUS RYTHM WITH SBP: 100-120'S MAP >65 HR: 70'S. IV: POWERLIDE GLIDE IN LUE AND PERIPHERAL IN R HAND. PT IS ABLE STAND VIA 1 PERSON ASSIST AND USE THE BEDSIDE URINAL. LINES AND CORDS PLACED OUT OF REACH. CALL LIGHT PLACED WITHIN REACH.
[2025-05-24 09:56] LABS: IMMATURE RETIC FRACTION 4.9 % (2.3-16.0); RETIC HGB EQUIVALENT 35.7 pg (28.20-36.60); RETICULOCYTE ABSOLUTE 0.0697 M/mm3 (0.0200-0.1100); RETICULOCYTE COUNT PERCENT 1.73 % (0.50-2.50)
[2025-05-24 10:44] LABS: Ferritin, Serum 280.0 ng/mL (26-388); Total Iron Binding Capacity 318.0 ug/dL (250-450)
[2025-05-24] MEDS ORDERED: Enoxaparin 40 MG/0.4 ML SYR SC SCH (16:00)
--- NOTE | 2025-05-24 18:13 | NUR ---
Summary. Pt still displaying S/S of ETOH withdrawal. Precedex titrated off this afternoon. Pt c/o nausea/headache/hallucinations despite frequent medication interventions. Pt states he does not want the precedex turned back on at this time. No acute events this shift, VS stable. See chart for further details.
--- NOTE | 2025-05-24 21:37 | NUR ---
ASSUMPTION OF CARE: ASSUMED CARE AT START OF SHIFT (1899). PT IS DOING WELL AND RESTING IN BED. THEY ARE ALERT AND FOLLOWING COMMANDS, PT IS ON PRECEDEX GTT PER EMR ORDERS. PT IS GOING THROUGH ETOH WITHDRAWLS, CIWA SCORE: 21. LUNG SOUNDS ARE CLEAR AND EQUAL BILATERALLY ON RA WITH SPO2 >95%. SINUS RYTHM WITH SBP: 120-130'S MAP >65 HR: 70-80'S. IV: POWERGLIDE IN LUE AND PERIPHERAL IV IN R HAND. PT IS ABLE TO STAND AND USE BEDSIDE URINAL WITH 1-PERSON ASSIST. LINES, CORDS, AND TUBES PLACED OUT REACH. CALL LIGHT PLACED WITHIN REACH.
[2025-05-24] MEDS ORDERED: DEXTROMETHORPHAN/BENZOCAINE 1 EACH LOZENGE MT PRN (22:05)
[2025-05-25] VITALS (16 sets, daily range): BP systolic 92–137; BP diastolic 47–98
[2025-05-25 04:51] LABS: Hematocrit 34.2 % (37.0-53.0); Hemoglobin 11.8 g/dL (13.5-17.5); Mean Corpuscular HGB Conc 34.5 g/dL (31.5-36.5); Mean Corpuscular Volume 90 fL (80-100); NRBC ABSOLUTE 0.00 K/mm3 (0.00-0.02); NRBC Auto 0.0 /100 WBC (0.0-0.2); Platelet Count 76 K/mm3 (150-400); RDW Coefficient Variation 12.4 % (11.7-14.2); RDW Standard Deviation 40.5 fL (35.1-46.3)
[2025-05-25 05:08] LABS: Alanine Aminotransfer (ALT/SGP 69.0 U/L (12-78); Albumin, Blood 3.0 g/dL (3.4-5.0); Albumin/Globulin Ratio 1.0 (0.8-1.8); Anion Gap 10.0 mmol/L (3-11); Aspartate Aminotrans (AST/SGOT 83.0 U/L (12-37); Bilirubin, Total 0.4 mg/dL (0.1-1.0); Blood Urea Nitrogen 8.0 mg/dL (8-24); CO2, Blood 28.0 mmol/L (21-32); Calcium, Blood 7.6 mg/dL (8.5-10.1); Chloride, Blood 95.0 mmol/L (98-108); Creatinine, Blood 1.25 mg/dL (0.60-1.20); Globulin, Blood 3.0 g/dL (2.2-4.0); Glucose, Blood 118.0 mg/dL (70-99); Potassium, Blood 3.8 mmol/L (3.5-5.5); Sodium, Blood 129.0 mmol/L (136-145); Total Protein, Blood 6.0 g/dL (6.4-8.2)
[2025-05-25 05:39] LABS: BAND PERCENT MAN 14 % (0-8); BASOPHILS ABSOLUTE MAN 0.02 K/mm3 (0.00-0.23); BASOPHILS PERCENT MAN 1 % (0-2); EOSINOPHILS ABSOLUTE MAN 0.02 K/mm3 (0.00-0.68); EOSINOPHILS PERCENT MAN 1 % (0-6); LYMPHOCYTES ABSOLUTE MAN 0.27 K/mm3 (0.84-5.20); LYMPHOCYTES PERCENT MAN 10 % (21-46); MONOCYTES ABSOLUTE MAN 0.16 K/mm3 (0.16-1.47); MONOCYTES PERCENT MAN 6 % (4-13); NEUTROPHILS ABSOLUTE MAN 2.22 K/mm3 (1.96-9.15); SEG NEUTROPHILS PERCENT MAN 68 % (41-73)
--- NOTE | 2025-05-25 06:27 | NUR ---
SHIFT SUMMARY: PT IS DOING WELL AND RESTING. PT IS ALERT AND FOLLOWING COMMANDS. NO ACUTE CHANGES THROUGHOUT THE SHIFT. PRECEDEX GTT PER EMR ORDERS. PT WAS ABLE TO SLEEP MOST OF THE NIGHT. WHEN SLEEPING, SPO2 DECREASED TO 80S, THEY WERE PLACED ON O2 VIA NC AND SPO2 HAS BEEN >95%. LUNG SOUNDS ARE CLEAR AND EQUAL. SINUS RYTHM, BP STABLE WITH MAP>65 HR: 60'S. PT WILL USE CALL LIGHT FOR HELP USING BEDSIDE URINAL. PT IS WEAK AND UNSTEADY WHEN STANDING. LINES, CORDS, AND TUBES PLACED OUT OF REACH. CALL LIGHT PLACED WITHIN REACH.
[2025-05-25 08:58] LABS: Influenza A, PCR NEGATIVE (NEGATIVE); Influenza B, PCR NEGATIVE (NEGATIVE); Resp Syncytial Virus, PCR NEGATIVE (NEGATIVE)
[2025-05-25 10:13] LABS: SARS-Cov-2 (COVID-19) PCR, MMC POSITIVE (NEGATIVE)
[2025-05-25] MEDS ORDERED: NIRMATRELVIR/RITONAVIR 3 TAB BLISTER CARD PO SCH (11:00)
--- NOTE | 2025-05-25 18:29 | NUR ---
Summary. Pt slightly improved today, off precedex, oriented this afternoon. No acute changes this shift, VS stable. See chart for further details.
--- NOTE | 2025-05-25 21:52 | NUR ---
ASSUMPTION OF CARE: ASSUMED CARE AT START OF SHIFT (1899). PT IS RESTING IN BED AND DOING WELL. THEY ARE ALERT AND FOLLOWING COMMANDS. PT IS ON ISOLATION PRECATUIONS FOR COVID. ON O2 VIA NC @ 2LPM, SPO2 >95%. SINUS RYTHM WITH SBP: 120-130'S MAO >65 HR: 60-80'S. IV: POWERGLIDE IN LUE AND PERIPHERAL IV IN R HAND. PT IS ABLE TO STAND VIA 1-PERSON ASSIST AND USE THE TOILET. LINES AND CORDS PLACED OUT OF REACH. CALLL LIGHT PLACED WITHIN REACH.
[2025-05-26] VITALS (13 sets, daily range): BP systolic 117–156; BP diastolic 77–101
[2025-05-26 05:08] LABS: Hematocrit 35.8 % (37.0-53.0); Hemoglobin 12.2 g/dL (13.5-17.5); Mean Corpuscular HGB Conc 34.1 g/dL (31.5-36.5); Mean Corpuscular Volume 91 fL (80-100); NRBC ABSOLUTE 0.00 K/mm3 (0.00-0.02); NRBC Auto 0.0 /100 WBC (0.0-0.2); Platelet Count 73 K/mm3 (150-400); RDW Coefficient Variation 12.2 % (11.7-14.2); RDW Standard Deviation 40.6 fL (35.1-46.3)
[2025-05-26 05:33] LABS: Anion Gap 7.0 mmol/L (3-11); Blood Urea Nitrogen 5.0 mg/dL (8-24); CO2, Blood 30.0 mmol/L (21-32); Calcium, Blood 8.3 mg/dL (8.5-10.1); Chloride, Blood 100.0 mmol/L (98-108); Creatinine, Blood 0.65 mg/dL (0.60-1.20); Glucose, Blood 121.0 mg/dL (70-99); Potassium, Blood 4.3 mmol/L (3.5-5.5); Sodium, Blood 133.0 mmol/L (136-145)
--- NOTE | 2025-05-26 06:29 | NUR ---
SHIFT SUMMARY: PT IS DOING WELL AND RESTING IN BED. PT IS ALERT AND FOLLOWING COMMANDS. NO ACUTE CHANGES THROUGHOUT THE NIGHT. PT IS ABLE TO STAND VIA 1-PERSON ASSIST. VITAL SIGNS ARE STABLE. LINES AND CORDS PLACED OUT OF REACH. CALL LIGHT PLACED WITHIN REACH. PT WILL USE CALL LIGHT WHEN THEY NEED ASSISTACNE.
--- NOTE | 2025-05-26 09:42 | NUR ---
SHIFT ASSESSMENT ASSUMED CARE OF PT @ 0700. PT INTIALLY RESTING COMORTABLY IN BED. WOKE EASILY TO VERBAL STIMULI. A&OX4, CALM AND COOPERATIVE. LONG DISCUSSION HELD REGARDING PTS PAST AND PLANS FOR RECOVERY. PT DENIES SUICIDAL IDEATION, STATED HE MADE THE PRIOR COMMENTS FROM FRUSTRATION. DR. HANEY NOTIFIED, WILL COME SEE PT TODAY. CIWA COMPLETED, 8-9, MEDICATED WITH PRN ATIVAN. PT TOLERATING PO INTAKE, ABMULATES TO BEDSIDE COMMODE. 1:1 SITTER OUTSIDE OF ROOM.
--- NOTE | 2025-05-26 18:16 | NUR ---
PT ARRIVED IN THE ROOM AT APPROX 1500, PT WAS DROWSY BUT WAS ABLE TO STAND TRANSFER TO PCU BED ASSISTED. PT ABLE TO ANSWER QUESTIONS WORDS MUMBLED AT TIMES. CIWA 8 WHEN AWAKE BUT MOSTLY ASLEEP T/O SHIFT. ASKED TO USE THE BATHROOM TO URINATE PT TOOK 30 MINS TO TRY TO URINATE AND WAS UNABLE TO. PT WAS BLADDER SCANNED AND HAD 1155 URINE RETAINED. PT WAS STRAIGHT CATH 1110 URINE OBTAINED. PT SLEPT T/O SHIFT AFTER UNTIL OF THIS TIME. BED ALARM ON FOR SAFETY. ON 2L OF O2 VIA NASAL CANNULA. THE REST OF THE VITALS HAS BEEN STABLE WILL REPORT TO ONCOMING SHIFT
[2025-05-27 03:37] VITALS: BP 129/83
[2025-05-27 03:58] LABS: BASOPHILS ABSOLUTE AUTO 0.02 K/mm3 (0.00-0.23); BASOPHILS PERCENT AUTO 1 % (0-2); EOSINOPHILS ABSOLUTE AUTO 0.27 K/mm3 (0.00-0.68); EOSINOPHILS PERCENT AUTO 11 % (0-6); Hematocrit 38.1 % (37.0-53.0); Hemoglobin 12.8 g/dL (13.5-17.5); IMMATURE GRAN ABSOLUTE AUTO 0.01 K/mm3 (0.00-0.10); IMMATURE GRAN PERCENT AUTO 0 % (0-1); LYMPHOCYTES ABSOLUTE AUTO 0.38 K/mm3 (0.84-5.20); LYMPHOCYTES PERCENT AUTO 15 % (21-46); MONOCYTES ABSOLUTE AUTO 0.25 K/mm3 (0.16-1.47); MONOCYTES PERCENT AUTO 10 % (4-13); Mean Corpuscular HGB Conc 33.6 g/dL (31.5-36.5); Mean Corpuscular Volume 91 fL (80-100); NEUTROPHILS ABSOLUTE AUTO 1.53 K/mm3 (1.96-9.15); NEUTROPHILS PERCENT AUTO 62 % (41-73); NRBC ABSOLUTE 0.00 K/mm3 (0.00-0.02); NRBC Auto 0.0 /100 WBC (0.0-0.2); Platelet Count 95 K/mm3 (150-400); RDW Coefficient Variation 12.5 % (11.7-14.2); RDW Standard Deviation 41.9 fL (35.1-46.3)
[2025-05-27 04:14] LABS: Anion Gap 7.0 mmol/L (3-11); Blood Urea Nitrogen 7.0 mg/dL (8-24); CO2, Blood 33.0 mmol/L (21-32); Calcium, Blood 8.4 mg/dL (8.5-10.1); Chloride, Blood 96.0 mmol/L (98-108); Creatinine, Blood 0.66 mg/dL (0.60-1.20); Glucose, Blood 113.0 mg/dL (70-99); Potassium, Blood 4.2 mmol/L (3.5-5.5); Sodium, Blood 132.0 mmol/L (136-145)
--- NOTE | 2025-05-27 04:57 | NUR ---
SHIFT SUMMARY PT REMAINS ALERT HOWEVER FORGETFUL AT TIMES WITH SITUATION AND GETS ANXIOUS VERY EASILY. PT WAS HYPERFIXATED ON HAND ANTHROPOLOGY AND ARCHEOLOGY INSTRUCTOR ALL NIGHT REQUESTING HE GET A BOTTLE, THIS NURSE EXPLAINED ITS BETTER HE WASHES HIS HANDS INSTEAD AND PT GOT UPSET WITH STAFF WHEN NOT PROVIDING HIM WITH PURELL. PT STATED HE HAD A TERRIBLE HEADACHE AT START OF SHIFT WITH NAUSEA AND REQUESTED IBUPROFEN WITH PHENERGAN AND SOMETHING FOR HIS ANXIETY. PT WAS GIVEN MEDS PER EMAR WITH GOOD RELIEF. VSS THROUGHOUT NIGHT. ON RA WHILE AWAKE >92%. WHILE SLEEPING PT DIPS DOWN TO MID 80s, 2L NC REQUIRED TO MAINTAIN >88%. PT CONTINUED TO C/O SORE THROAT, LOZENGES PROVIDED. PT PRETTY WOBBLY STILL ON FEET. BED ALARM REMAINS SET. PT WAS NOT ABLE TO PEE THROUGHOUT SHIFT EVEN WITH SEVERAL INTERVENTIONS. BLADDER SCAN @ 0400 SHOWED 600CC IN BLADDER. PT REQUESTED TO GIVE HIM MORE TIME TO PEE. EDUCATED AND WILL REASSESS. OTHERWISE, NO FURTHER QUESTIONS OR CONCERNS AT THIS TIME. WILL CONTINUE WITH PLAN OF CARE.
[2025-05-27] MEDS ORDERED: Folic Acid 1 MG TAB PO SCH (09:00)
[2025-05-27 09:12] VITALS: BP 110/76
[2025-05-27 09:40] LABS: pH Blood Venous 7.38 (7.34-7.37)
[2025-05-27 14:10] LABS: Source, Urine Straight Cath
[2025-05-27 14:19] LABS: Bilirubin, Urine Neg (Neg); Color, Urine Yellow (P-Yellow); Glucose Qualitative, Urine Neg (Neg); Ketones, Urine Neg (Neg); Leukocyte Esterase, Urine Neg (Neg); Protein, Urine Neg (Neg); Specific Gravity, Urine 1.010 (1.003-1.022); Urobilinogen, Urine NORM (Normal)
[2025-05-27 14:47] VITALS: BP 120/90
[2025-05-27 16:14] LABS: pH Blood Venous 7.31 (7.34-7.37)
--- NOTE | 2025-05-27 17:13 | NUR ---
DAY SUMMARY XFER'D FROM [facility] @ [id number], PT LETHARGIC, DIFFICULT TO AROUSE, ONCE WOKE IS A&OX3 W/FORGETFULNESS, UNSTEADY GAIT, ATTEMPTS TO SELF AMBULATE, BEDRESTING AT THIS TIME, CALL LIGHT IN REACH, BED ALARM CATIVE, WILL CONT TO MONITOR.
[2025-05-27 20:22] VITALS: BP 138/89
--- NOTE | 2025-05-27 22:19 | NUR ---
PT C/O ANXIETY ATTACK. CALLED HOSPITALIST AND RECIEVED ORDERS.
[2025-05-28 03:19] VITALS: BP 117/90
[2025-05-28 05:26] VITALS: BP 116/77
--- NOTE | 2025-05-28 05:58 | NUR ---
SHIFT SUMMARY PT HERE FOR DIFFICULTY URINATING. HE WAS A PCU TRANSFER YESTERDAY, AND WAS SOLEMNENT UNTIL SHIFT CHANGE, PER REPORT. PT WAS ALERT AND ORIENTED DURING SHIFT ASSESSMENT. HOWEVER, HE HAS HAD EPISODES OF DROWSINESS OVERNIGHT. HE HAS C/O ANXIETY ATTACKS EARLIER IN SHIFT. PT ALSO HAD ABEL PLACED DUE TO RETENTION, HE ATTEMPTED TO URINATE 1 TIME OVERNIGHT, BUT WAS UNABLE TO HAVE ANY OUTPUT. PT HAS BEEN ON 2LNC, SATS >90%. HE ALSO HAS BIPAP QHS. PT HAD UNEVENTFUL NIGHT.
[2025-05-28 06:07] LABS: BASOPHILS ABSOLUTE AUTO 0.01 K/mm3 (0.00-0.23); BASOPHILS PERCENT AUTO 1 % (0-2); EOSINOPHILS ABSOLUTE AUTO 0.25 K/mm3 (0.00-0.68); EOSINOPHILS PERCENT AUTO 13 % (0-6); Hematocrit 34.3 % (37.0-53.0); Hemoglobin 11.7 g/dL (13.5-17.5); IMMATURE GRAN ABSOLUTE AUTO 0.00 K/mm3 (0.00-0.10); IMMATURE GRAN PERCENT AUTO 0 % (0-1); LYMPHOCYTES ABSOLUTE AUTO 0.28 K/mm3 (0.84-5.20); LYMPHOCYTES PERCENT AUTO 14 % (21-46); MONOCYTES ABSOLUTE AUTO 0.23 K/mm3 (0.16-1.47); MONOCYTES PERCENT AUTO 12 % (4-13); Mean Corpuscular HGB Conc 34.1 g/dL (31.5-36.5); Mean Corpuscular Volume 91 fL (80-100); NEUTROPHILS ABSOLUTE AUTO 1.23 K/mm3 (1.96-9.15); NEUTROPHILS PERCENT AUTO 62 % (41-73); NRBC ABSOLUTE 0.00 K/mm3 (0.00-0.02); NRBC Auto 0.0 /100 WBC (0.0-0.2); Platelet Count 95 K/mm3 (150-400); RDW Coefficient Variation 12.2 % (11.7-14.2); RDW Standard Deviation 40.5 fL (35.1-46.3)
[2025-05-28 06:39] LABS: Anion Gap 8.0 mmol/L (3-11); Blood Urea Nitrogen 6.0 mg/dL (8-24); CO2, Blood 31.0 mmol/L (21-32); Calcium, Blood 8.4 mg/dL (8.5-10.1); Chloride, Blood 100.0 mmol/L (98-108); Creatinine, Blood 0.63 mg/dL (0.60-1.20); Glucose, Blood 121.0 mg/dL (70-99); Potassium, Blood 4.0 mmol/L (3.5-5.5); Sodium, Blood 135.0 mmol/L (136-145); Thyroid Stimulating Hormone 3.86 uIU/mL (0.360-4.800)
[2025-05-28 08:03] VITALS: BP 127/76
[2025-05-28 16:52] VITALS: BP 133/98
--- NOTE | 2025-05-28 18:12 | NUR ---
DAY SUMMARY PT A&OX4 THIS SHIFT, METHADONE RESTARTED, MULTIPLE REQ FOR RN TO CALL PROVIDER TO REQUEST INCREASE IN ANXIETY MEDS, SPECIFICALLY REQ NILSON NOTIFIED, PT HAS TAKEN TWO LONG NAPS THIS SHIFT (BOTH +2HRS), VSS, HAS DISPLAYED NO REAL SX OF ANXIETY, BEDRESTING, CALL LIGHT IN REACH, ABLE TO MAKE NEEEDS KNOWN
[2025-05-28 20:19] VITALS: BP 117/75
--- NOTE | 2025-05-29 03:30 | NUR ---
SHIFT SUMMARY: AOX4. INDEPENDENT IN THE ROOM. PT TRIALED ON CPAP THIS SHIFT, PT DID NOT TOLERATE IT AND WAS PLACED ON 2L WHILE ASLEEP. LUNG SOUNDS WERE CLEAR DURING ASSESSMENT BUT PT DOES STILL HAVE INTERMITTENT COUGH. PT DENIED CP. ABEL IS ALSO STILL IN PLACE FOR RETENTION. PT EXPRESSED NO OTHER CONCERNS THIS SHIFT. CALL LIGHT IS WITHIN REACH. BED IS LOW AND LOCKED.
[2025-05-29 04:34] VITALS: BP 114/70
[2025-05-29 05:28] LABS: BASOPHILS ABSOLUTE AUTO 0.01 K/mm3 (0.00-0.23); BASOPHILS PERCENT AUTO 1 % (0-2); EOSINOPHILS ABSOLUTE AUTO 0.23 K/mm3 (0.00-0.68); EOSINOPHILS PERCENT AUTO 12 % (0-6); Hematocrit 35.7 % (37.0-53.0); Hemoglobin 12.1 g/dL (13.5-17.5); IMMATURE GRAN ABSOLUTE AUTO 0.01 K/mm3 (0.00-0.10); IMMATURE GRAN PERCENT AUTO 1 % (0-1); LYMPHOCYTES ABSOLUTE AUTO 0.38 K/mm3 (0.84-5.20); LYMPHOCYTES PERCENT AUTO 20 % (21-46); MONOCYTES ABSOLUTE AUTO 0.32 K/mm3 (0.16-1.47); MONOCYTES PERCENT AUTO 16 % (4-13); Mean Corpuscular HGB Conc 33.9 g/dL (31.5-36.5); Mean Corpuscular Volume 91 fL (80-100); NEUTROPHILS ABSOLUTE AUTO 1.00 K/mm3 (1.96-9.15); NEUTROPHILS PERCENT AUTO 51 % (41-73); NRBC ABSOLUTE 0.00 K/mm3 (0.00-0.02); NRBC Auto 0.0 /100 WBC (0.0-0.2); Platelet Count 132 K/mm3 (150-400); RDW Coefficient Variation 11.9 % (11.7-14.2); RDW Standard Deviation 39.5 fL (35.1-46.3)
[2025-05-29 05:44] LABS: Anion Gap 5.0 mmol/L (3-11); Blood Urea Nitrogen 9.0 mg/dL (8-24); CO2, Blood 37.0 mmol/L (21-32); Calcium, Blood 8.6 mg/dL (8.5-10.1); Chloride, Blood 99.0 mmol/L (98-108); Creatinine, Blood 0.62 mg/dL (0.60-1.20); Glucose, Blood 110.0 mg/dL (70-99); Potassium, Blood 3.9 mmol/L (3.5-5.5); Sodium, Blood 137.0 mmol/L (136-145)
[2025-05-29 08:07] VITALS: BP 108/66
[2025-05-29] MEDS ORDERED: FERSU300 PO (16:32)
[2025-05-29] MEDS ORDERED: NICO21TP TOP (16:33)
--- NOTE | 2025-05-29 16:42 | NUR ---
D/C NOTE PT D/C HOME AT 1635. PT PROVIDED W/ VERBAL AND WRITTEN INSTRUCTIONS AND REPORTED UNDERSTANDING. PT A&OX4, VSS, AMB IND, TOLERATING PO, VOIDING, AND DENIED PAIN. BELONGINGS WERE RETURNED. HARD SCRIPT GIVEN TO PT AND COPY PLACED IN CHART. ABEL REMOVED AT 0948 W/ 2 POST VOIDS. PT ESCOURTED OUT VIA W/C BY [facility] BALTAZAR.
== END 2025-05-29 17:00 | disposition home health service (06) | DRG 896 ==
LOC: ER 19:20 → MEDS 19:21 → ICUE 19:21 → MEDS 05-21 10:26 → ICUE 05-21 16:56 → PCU 05-26 13:17 → ICUE 05-26 13:17 → PCU 05-26 13:17 → MEDS 05-27 14:37 → PCU 05-27 14:37 → MEDS 05-27 14:37 → ICUE 05-29 17:00
PROVIDERS: Emergency Medicine; Internal Medicine; Student in an Organized Health Care Education/Training Program; ADMIT Internal Medicine
DX: F10.239 Alcohol dependence with withdrawal, unspecified (principal); G92.8 Other toxic encephalopathy; U07.1 COVID-19; E87.1 Hypo-osmolality and hyponatremia; E87.20 Acidosis, unspecified; D61.818 Other pancytopenia; F11.20 Opioid dependence, uncomplicated; E72.20 Disorder of urea cycle metabolism, unspecified; N17.9 Acute kidney failure, unspecified; K76.82 Hepatic encephalopathy; R33.9 Retention of urine, unspecified; F32.A Depression, unspecified; E87.6 Hypokalemia; J44.9 Chronic obstructive pulmonary disease, unspecified; K21.9 Gastro-esophageal reflux disease without esophagitis; K76.0 Fatty (change of) liver, not elsewhere classified; R74.01 Elevation of levels of liver transaminase levels; E87.8 Other disorders of electrolyte and fluid balance, not elsewhere classified; F17.200 Nicotine dependence, unspecified, uncomplicated; F41.9 Anxiety disorder, unspecified; R09.02 Hypoxemia; R06.89 Other abnormalities of breathing; Z79.899 Other long term (current) drug therapy; Z86.14 Personal history of Methicillin resistant Staphylococcus aureus infection
CPT/HCPCS: 36415; 51701; 51702; 51798; 71046; 74174; 76770; 80048; 80053; 80320; 81003; 82140; 82607; 82728; 82746; 82803; 83540; 83550; 83605; 83690; 83735; 84100; 84443; 85025; 85027; 85045; 85610; 85730; 87040; 87086; 87637; 93005; 93010; 94640; 94660; 94760; 94762; 96361-59; 96365-59; 96375; 96376; 97116; 97161; 97530; 99285-25; A9270; C1751; G0378; J0696; J1650; J2405; J3360; J3411; J7030; J7042; J7050; J7120; Q9967

== ENCOUNTER 2025-06-25 12:12 | Inpatient (IN) | payer OTHER ==
[~2025-06-25] VITALS: Ht 175.3 cm; Wt 86.2 kg
[~2025-06-25 12:12] MED LIST changes: +FERSU300 PO; +NICO21TP TOP
[2025-06-25] MEDS ORDERED: LORazepam 2 MG/ML 1ML Injection IV ONE ×3 (12:45→14:15)
[2025-06-25 13:17] LABS: BASOPHILS ABSOLUTE AUTO 0.06 K/mm3 (0.00-0.23); BASOPHILS PERCENT AUTO 1 % (0-2); EOSINOPHILS ABSOLUTE AUTO 0.07 K/mm3 (0.00-0.68); EOSINOPHILS PERCENT AUTO 1 % (0-6); Hematocrit 46.8 % (37.0-53.0); Hemoglobin 17.2 g/dL (13.5-17.5); IMMATURE GRAN ABSOLUTE AUTO 0.02 K/mm3 (0.00-0.10); IMMATURE GRAN PERCENT AUTO 0 % (0-1); LYMPHOCYTES ABSOLUTE AUTO 0.98 K/mm3 (0.84-5.20); LYMPHOCYTES PERCENT AUTO 11 % (21-46); MONOCYTES ABSOLUTE AUTO 0.95 K/mm3 (0.16-1.47); MONOCYTES PERCENT AUTO 10 % (4-13); Mean Corpuscular HGB Conc 36.8 g/dL (31.5-36.5); Mean Corpuscular Volume 86 fL (80-100); NEUTROPHILS ABSOLUTE AUTO 7.14 K/mm3 (1.96-9.15); NEUTROPHILS PERCENT AUTO 77 % (41-73); NRBC ABSOLUTE 0.00 K/mm3 (0.00-0.02); NRBC Auto 0.0 /100 WBC (0.0-0.2); Platelet Count 223 K/mm3 (150-400); RDW Coefficient Variation 12.8 % (11.7-14.2); RDW Standard Deviation 39.6 fL (35.1-46.3)
[2025-06-25 14:24] LABS: Ethanol (Alcohol), Blood, Med 10.0 mg/dL
[2025-06-25 14:35] LABS: Albumin, Blood 4.4 g/dL (3.4-5.0); Albumin/Globulin Ratio 1.1 (0.8-1.8); Anion Gap 19.0 mmol/L (3-11); Aspartate Aminotrans (AST/SGOT 166.0 U/L (12-37); Bilirubin, Total 1.2 mg/dL (0.1-1.0); Blood Urea Nitrogen 13.0 mg/dL (8-24); CO2, Blood 18.0 mmol/L (21-32); Calcium, Blood 8.5 mg/dL (8.5-10.1); Chloride, Blood 90.0 mmol/L (98-108); Creatinine, Blood 0.91 mg/dL (0.60-1.20); Globulin, Blood 4.0 g/dL (2.2-4.0); Glucose, Blood 134.0 mg/dL (70-99); Potassium, Blood 3.7 mmol/L (3.5-5.5); Sodium, Blood 123.0 mmol/L (136-145); Total Protein, Blood 8.4 g/dL (6.4-8.2)
[2025-06-25 14:41] LABS: Alanine Aminotransfer (ALT/SGP 146.0 U/L (12-78)
[2025-06-25] MEDS ORDERED: LORazepam 2 MG/ML 1ML Injection IV PRN ×2 (14:45→14:50)
[2025-06-25] MEDS ORDERED: QUETIAPINE FUM10011 PO (14:57)
[2025-06-25] MEDS ORDERED: BUSP5 PO (14:57)
[2025-06-25] MEDS ORDERED: Phenergan25 M1 PO (14:58)
[2025-06-25 15:23] LABS: Source, Urine Clean Catch
[2025-06-25 15:29] LABS: Bilirubin, Urine Neg (Neg); Glucose Qualitative, Urine Neg (Neg); Ketones, Urine Neg (Neg); Leukocyte Esterase, Urine Neg (Neg); Protein, Urine Neg (Neg); Specific Gravity, Urine 1.010 (1.003-1.022); Urobilinogen, Urine NORM (Normal)
[2025-06-25 15:36] LABS: Color, Urine Pale Yellow (P-Yellow)
[2025-06-25 15:44] LABS: U Amphetamine Screen Not Detected; U Barbituate Screen Not Detected; U Benzodiazapine Screen DETECTED; U Buprenorphine Screen Not Detected; U Cannabinoids Screen Not Detected; U Cocaine Screen Not Detected; U Methadone Screen DETECTED; U Methamphetamine Screen Not Detected; U Opiates Screen Not Detected; U Oxycodone Screen Not Detected; U Phencyclidine Screen Not Detected
[2025-06-25] MEDS ORDERED: Ondansetron HCl 2 MG / ML 2ML Vial IV PRN (16:20)
[2025-06-25] MEDS ORDERED: Albuterol HFA200 ACT/6.7 GM INH INH PRN (17:50)
[2025-06-25 18:23] VITALS: BP 136/117
--- NOTE | 2025-06-25 18:28 | NUR ---
ARRIVAL TO ICU & SUMMARY PT IS ALERT, PARTICIPATES IN CONVERSATION AND CARE. PT ABLE TO TRANSFER TO ICU BED WITH STANDBY ASSIST. PT IS EXTREMELY TREMULOUS, DIAPHORETIC, REPORTS AUDITORY AND VISUAL HALLUCINATIONS. HE STS THESE HALLUCINATIONS ONLY OCCUR WHEN HE IS "DETOXING". CIWA 13-15. PT'S LAST DRINK WAS YESTERDAY AND PLAN TO BE ADMITTED TO [facility] ON TUESDAY. PT REPORTS PREVIOUSLY QUITTING DRINKING FOR OVER A MONTH BUT RELAPSED DUE TO OTHERS IN THE HOME CONSUMING ALCOHOL. SINUS TACH ON MONITOR. PT VOIDED 725ML. LR INFUSING AT 100ML/HR AND PRECEDEX TITRATED TO 1.0MCG/KG/HR. SEIZURE PADS IN PLACE, BED IN LOW POSITION WITH CALL LIGHT WITHIN REACH.
[2025-06-25 18:30] LABS: Anion Gap 15.0 mmol/L (3-11); Blood Urea Nitrogen 10.0 mg/dL (8-24); CO2, Blood 23.0 mmol/L (21-32); Calcium, Blood 8.6 mg/dL (8.5-10.1); Chloride, Blood 95.0 mmol/L (98-108); Creatinine, Blood 0.63 mg/dL (0.60-1.20); Glucose, Blood 138.0 mg/dL (70-99); Potassium, Blood 2.9 mmol/L (3.5-5.5); Sodium, Blood 130.0 mmol/L (136-145)
[2025-06-25] MEDS ORDERED: D5W-1/2NS KCl 20mEq 1,000 ML IV SCH (18:45)
[2025-06-25 19:00] VITALS: BP 135/103
[2025-06-25 19:30] VITALS: BP 127/91
[2025-06-25 20:00] VITALS: BP 122/83
[2025-06-25 20:30] VITALS: BP 109/90
[2025-06-25 21:00] VITALS: BP 118/89
[2025-06-25 23:06] LABS: Anion Gap 11.0 mmol/L (3-11); Blood Urea Nitrogen 8.0 mg/dL (8-24); CO2, Blood 26.0 mmol/L (21-32); Calcium, Blood 7.7 mg/dL (8.5-10.1); Chloride, Blood 100.0 mmol/L (98-108); Creatinine, Blood 0.74 mg/dL (0.60-1.20); Glucose, Blood 125.0 mg/dL (70-99); Potassium, Blood 3.7 mmol/L (3.5-5.5); Sodium, Blood 133.0 mmol/L (136-145)
[2025-06-26] VITALS (22 sets, daily range): BP systolic 108–155; BP diastolic 93–128
[2025-06-26 03:55] LABS: BASOPHILS ABSOLUTE AUTO 0.01 K/mm3 (0.00-0.23); BASOPHILS PERCENT AUTO 1 % (0-2); EOSINOPHILS ABSOLUTE AUTO 0.21 K/mm3 (0.00-0.68); EOSINOPHILS PERCENT AUTO 11 % (0-6); Hematocrit 36.5 % (37.0-53.0); Hemoglobin 13.0 g/dL (13.5-17.5); IMMATURE GRAN ABSOLUTE AUTO 0.00 K/mm3 (0.00-0.10); IMMATURE GRAN PERCENT AUTO 0 % (0-1); LYMPHOCYTES ABSOLUTE AUTO 0.32 K/mm3 (0.84-5.20); LYMPHOCYTES PERCENT AUTO 17 % (21-46); MONOCYTES ABSOLUTE AUTO 0.20 K/mm3 (0.16-1.47); MONOCYTES PERCENT AUTO 10 % (4-13); Mean Corpuscular HGB Conc 35.6 g/dL (31.5-36.5); Mean Corpuscular Volume 86 fL (80-100); NEUTROPHILS ABSOLUTE AUTO 1.18 K/mm3 (1.96-9.15); NEUTROPHILS PERCENT AUTO 62 % (41-73); NRBC ABSOLUTE 0.00 K/mm3 (0.00-0.02); NRBC Auto 0.0 /100 WBC (0.0-0.2); Platelet Count 99 K/mm3 (150-400); RDW Coefficient Variation 13.0 % (11.7-14.2); RDW Standard Deviation 40.4 fL (35.1-46.3)
[2025-06-26 04:46] LABS: Alanine Aminotransfer (ALT/SGP 124.0 U/L (12-78); Albumin, Blood 3.3 g/dL (3.4-5.0); Albumin/Globulin Ratio 1.2 (0.8-1.8); Anion Gap 10.0 mmol/L (3-11); Aspartate Aminotrans (AST/SGOT 171.0 U/L (12-37); Bilirubin, Total 1.7 mg/dL (0.1-1.0); Blood Urea Nitrogen 6.0 mg/dL (8-24); CO2, Blood 25.0 mmol/L (21-32); Calcium, Blood 7.6 mg/dL (8.5-10.1); Chloride, Blood 102.0 mmol/L (98-108); Creatinine, Blood 0.76 mg/dL (0.60-1.20); Globulin, Blood 2.7 g/dL (2.2-4.0); Glucose, Blood 124.0 mg/dL (70-99); Potassium, Blood 3.7 mmol/L (3.5-5.5); Sodium, Blood 133.0 mmol/L (136-145)
[2025-06-26 04:47] LABS: Total Protein, Blood 6.0 g/dL (6.4-8.2)
--- NOTE | 2025-06-26 05:54 | NUR ---
SHIFT SUMMARY PT IN ACTIVE ETOH WD, REPORTS LAST DRINK BEING 06/24 AND REPORTS DRINKING 24 PACK OF BEER DAILY. PLANNED TO GO TO INPATIENT DETOX AT [facility] NEXT WEEK. HE IS ON PRECEDEX AND GETTING PRN ATIVAN. CIWAS HAVE RANGED FROM 3 TO 17 THIS MORNING. TREMULOUS, DIAPHORETIC AND HAVING VISUAL HALLUCINATIONS. AWAKENS WITH VERBAL STIMULI, ABLE TO MAKE NEEDS KNOWN. HR 60-70'S, HYPERTENSIVE- PROVIDER MADE AWARE, NO ORDERS GIVEN. PROVIDER STATED IF PT GETS OVER 180/120 THEN TO REQUEST PRN'S. NO CP/PRESSURE. ON ROOM AIR, SATS > 92%. NO N/V THIS SHIFT. ABEL PLACED R/T RETENTION AND DIFFICULT STRAIGHT CATH. NPO AT THIS TIME R/T SEDATION. NO ACUTE EVENTS THIS SHIFT, CALL LIGHT IN REACH. BEDSIDE SHIFT REPORT TO ONCOMING RN.
--- NOTE | 2025-06-26 07:00 | NUR ---
ASSUMPTION OF CARE PT RECEIVING PRECEDEX 0.5MCG/KG/HR. PT IS DROWSY, WAKENS FOR SHORT PERIODS, MUMBLES PHRASES AND GOES BACK TO SLEEP. HR 60S. HYPERTENSIVE WITH SBP 130S-150S, DBP >100. SPO2 >93% ON RA. ABEL PATENT AND DRAINING TO GRAVITY. PROVIDER AT BEDSIDE AND DISCUSSED PLAN OF CARE. PT AWOKE AT APPROX 0830. PT EXPRESSES FRUSTRATION WITH WITHDRAWAL PROCESS AND HOW HE IS FEELING OVERALL. CIWA 21, MEDICATED PER EMAR. PT REQUESTS HOME DOSE OF METHADONE. PROVIDER NOTIFIED AND PLAN TO RESTART MED.
[2025-06-26] MEDS ORDERED: Enoxaparin 40 MG/0.4 ML SYR SC SCH (09:00)
[2025-06-26] MEDS ORDERED: Polyethylene Glycol 3350 17 gm PO SCH (16:00)
--- NOTE | 2025-06-26 16:47 | NUR ---
SHIFT SUMMARY PT RECEIVING PRECEDEX 0.7MCG/KG/HR. PT EXPRESSING DIFFICULTY COPING WITH WITHDRAWALS. CIWA SCORES VARYING BETWEEN 10-21, MEDICATED PER EMAR. PROVIDED PT WITH THERAPEUTIC LISTENING AND CONVERSATION. PT REQUESTING FOOD THROUGHOUT THE DAY AND RECEIVED ORDER FOR LIQUID DIET. PT TOLERATING WELL. PT ASKED FOR BELONGINGS AND ATTEMPTED TO HIDE ZYN CONTAINER IN BED LINENS. ZYN REMOVED AND PLACED IN LOCK BOX. HOME MEDICATIONS SENT TO PHARMACY AND RECEIPT PLACED ON CHART. OFFERED NICOTINE ALTERNATIVE, PT REQUESTS GUM. HE STS HE HAS NOT HAD A BM IN APPROX 1 WEEK. ASSISTED TO TOILET, UNABLE TO HAVE BM. PT'S GAIT IS MORE STEADY THAN YESTERDAY. PT REQUESTING BOWEL REGIMEN AND PHENERGAN. PROVIDER NOTIFIED AND ORDERS RECEIVED. HE REMAINS ON RA WITH SPO2 >94%. SINUS ON MONITOR WITH RATE 50S-60S. BP STABLE THROUGHOUT THE DAY. ABEL PATENT AND DRAINING TO GRAVITY. BED IN LOW POSITION, CALL LIGHT WITHIN REACH.
[2025-06-27] VITALS (22 sets, daily range): BP systolic 116–158; BP diastolic 83–131
[2025-06-27 04:13] LABS: BASOPHILS ABSOLUTE AUTO 0.02 K/mm3 (0.00-0.23); BASOPHILS PERCENT AUTO 1 % (0-2); EOSINOPHILS ABSOLUTE AUTO 0.31 K/mm3 (0.00-0.68); EOSINOPHILS PERCENT AUTO 10 % (0-6); Hematocrit 38.4 % (37.0-53.0); Hemoglobin 13.3 g/dL (13.5-17.5); IMMATURE GRAN ABSOLUTE AUTO 0.00 K/mm3 (0.00-0.10); IMMATURE GRAN PERCENT AUTO 0 % (0-1); LYMPHOCYTES ABSOLUTE AUTO 0.32 K/mm3 (0.84-5.20); LYMPHOCYTES PERCENT AUTO 11 % (21-46); MONOCYTES ABSOLUTE AUTO 0.22 K/mm3 (0.16-1.47); MONOCYTES PERCENT AUTO 7 % (4-13); Mean Corpuscular HGB Conc 34.6 g/dL (31.5-36.5); Mean Corpuscular Volume 89 fL (80-100); NEUTROPHILS ABSOLUTE AUTO 2.12 K/mm3 (1.96-9.15); NEUTROPHILS PERCENT AUTO 71 % (41-73); NRBC ABSOLUTE 0.00 K/mm3 (0.00-0.02); NRBC Auto 0.0 /100 WBC (0.0-0.2); Platelet Count 80 K/mm3 (150-400); RDW Coefficient Variation 12.7 % (11.7-14.2); RDW Standard Deviation 41.7 fL (35.1-46.3)
[2025-06-27 04:39] LABS: Alanine Aminotransfer (ALT/SGP 201.0 U/L (12-78); Albumin, Blood 3.3 g/dL (3.4-5.0); Albumin/Globulin Ratio 1.1 (0.8-1.8); Anion Gap 9.0 mmol/L (3-11); Aspartate Aminotrans (AST/SGOT 283.0 U/L (12-37); Bilirubin, Total 1.5 mg/dL (0.1-1.0); Blood Urea Nitrogen 7.0 mg/dL (8-24); CO2, Blood 26.0 mmol/L (21-32); Calcium, Blood 8.3 mg/dL (8.5-10.1); Chloride, Blood 103.0 mmol/L (98-108); Creatinine, Blood 0.66 mg/dL (0.60-1.20); Globulin, Blood 3.1 g/dL (2.2-4.0); Glucose, Blood 104.0 mg/dL (70-99); Potassium, Blood 4.0 mmol/L (3.5-5.5); Sodium, Blood 134.0 mmol/L (136-145); Total Protein, Blood 6.4 g/dL (6.4-8.2)
--- NOTE | 2025-06-27 06:55 | NUR ---
SHIFT SUMMARY NO ACUTE CHANGES DURING NOC. CIWA SCORE BETWEEN 9-21. PRECEDEX CONTINUES AT 0.7MCG/KG/MIN. MEDICATED WITH LIBRIUM 50MG PO X 2 DOSES AND ATIVAN 2MG PO X 2 DOSES. C/O INTERMITTENT NAUSEA- MEDICATED WITH PHENERGAN 25MG PO WITH GOOD RELIEF PER PATIENT. IVF INFUSING PER ORDER. ABEL PATENT AND DRAINING TO GRAVITY. PT IS COOPERATIVE WITH CARE. MONITOR SHOWS SB-SR, RATE 50s-60s. DBP ELEVATED AT TIMES. RA SATS STABLE AND RESPIRATIONS ARE EVEN AND UNLABORED. WILL REPORT TO ONCOMING RN WHEN AVAILABLE.
[2025-06-27] MEDS ORDERED: HydrALAZINE HCl 20 MG / ML 1ML Vial IV PRN (07:25)
--- NOTE | 2025-06-27 09:11 | NUR ---
[address] Hanson rounded this morning. Discussed CIWA scores, current precedex gtt and oral benzos for tx. Also discussed pt's good p.o. intake, and if maintainence IVF are still needed. Verbal order to d/c. Also brought up issue of lea which was placed 2 nights ago for retention after straight catheterizations, and concerns for urinary retention as we near discharge. Pt states that he has been having difficulty urinating in out patient setting as well. Pt is readily asking for orange juice, water and would like diet advanced. STates that he is having tremors but no visible tremors are noted when he is drinking and holding his cup, picking it up and setting it down. CIWA SCORE 8; He is asking for ativan and librium at once, states that he is supposed to get both of them together every morning. Explained to patient that it depends on symptoms and so the doses and frequencies are variable depending on that.
--- NOTE | 2025-06-27 10:11 | NUR ---
Pt returned from heart center post pacer placement with Dr. Koch. Bedside report received from MARY Telles. Left chest wall surgical incision is clean, dry and intact. Placed ice pack on it. Pt is alert, oriented and pleasantly conversant. at bedside assisting him with breakfast. Pt educated on left arm activity restrictions per orders. Also gave the his pacemaker booklet, card, and pacemaker clinic appointment card.
--- NOTE | 2025-06-27 19:05 | NUR ---
End of Shift This RN assumed care of pt this afternoon. Pt A&O to self & place. VSS. Spo2 > 92% on RA. Monitor showing SR-ST, HR 60s-110s. Pt CIWAs fluctuating t/o shift. Pt intermittently tremulous, nauseous & sweaty. Pt also reporting severe headache & hallucinations. Pt medicated w/ PO ativan & librium per emar. IV precedex gtt also infusing, see emar & flowsheet. Pt requesting lea cath to be removed. Lea dc'd this evening & pt w/ post void.
[2025-06-28] VITALS (35 sets, daily range): BP systolic 115–172; BP diastolic 70–148
[2025-06-28 04:10] LABS: BASOPHILS ABSOLUTE AUTO 0.02 K/mm3 (0.00-0.23); BASOPHILS PERCENT AUTO 1 % (0-2); EOSINOPHILS ABSOLUTE AUTO 0.33 K/mm3 (0.00-0.68); EOSINOPHILS PERCENT AUTO 11 % (0-6); Hematocrit 36.7 % (37.0-53.0); Hemoglobin 12.5 g/dL (13.5-17.5); IMMATURE GRAN ABSOLUTE AUTO 0.00 K/mm3 (0.00-0.10); IMMATURE GRAN PERCENT AUTO 0 % (0-1); LYMPHOCYTES ABSOLUTE AUTO 0.37 K/mm3 (0.84-5.20); LYMPHOCYTES PERCENT AUTO 13 % (21-46); MONOCYTES ABSOLUTE AUTO 0.28 K/mm3 (0.16-1.47); MONOCYTES PERCENT AUTO 10 % (4-13); Mean Corpuscular HGB Conc 34.1 g/dL (31.5-36.5); Mean Corpuscular Volume 89 fL (80-100); NEUTROPHILS ABSOLUTE AUTO 1.94 K/mm3 (1.96-9.15); NEUTROPHILS PERCENT AUTO 66 % (41-73); NRBC ABSOLUTE 0.00 K/mm3 (0.00-0.02); NRBC Auto 0.0 /100 WBC (0.0-0.2); Platelet Count 84 K/mm3 (150-400); RDW Coefficient Variation 12.7 % (11.7-14.2); RDW Standard Deviation 41.8 fL (35.1-46.3)
[2025-06-28 04:35] LABS: Alanine Aminotransfer (ALT/SGP 159.0 U/L (12-78); Albumin, Blood 3.1 g/dL (3.4-5.0); Albumin/Globulin Ratio 1.0 (0.8-1.8); Anion Gap 9.0 mmol/L (3-11); Aspartate Aminotrans (AST/SGOT 148.0 U/L (12-37); Bilirubin, Total 0.5 mg/dL (0.1-1.0); Blood Urea Nitrogen 9.0 mg/dL (8-24); CO2, Blood 30.0 mmol/L (21-32); Calcium, Blood 8.9 mg/dL (8.5-10.1); Chloride, Blood 100.0 mmol/L (98-108); Creatinine, Blood 0.73 mg/dL (0.60-1.20); Globulin, Blood 3.0 g/dL (2.2-4.0); Glucose, Blood 113.0 mg/dL (70-99); Potassium, Blood 3.7 mmol/L (3.5-5.5); Sodium, Blood 135.0 mmol/L (136-145); Total Protein, Blood 6.1 g/dL (6.4-8.2)
--- NOTE | 2025-06-28 06:18 | NUR ---
SHIFT SUMMARY: PT WAS VERY AGITATED AT THE BEGINNING OF SHIFT. HE BECAME EMOTIONAL ABOUT SOBRIETY AND THE POTENTIAL OF IT NOT STICKING. HE HAS A LOT OF ANXIETY AND SAYS HE HAS DAILY PANIC ATTACKS AND FINDS IT ALL DIFFICULT TO MANAGE. AFTER A FEW HOURS HE WAS FEELING BETTER AND ABLE TO SLEEP FOR A WHILE. PT IS OFF PRECEDEX AND HAS BEEN APPROPRIATE SINCE WITH CIWAS LESS THAN 10.
[2025-06-28] MEDS ORDERED: LORazepam 2 MG/ML 1ML Injection IV PRN (15:10)
[2025-06-28] MEDS ORDERED: LORazepam 2 MG/ML 1ML Injection ONE ×2 (16:16→16:22)
--- NOTE | 2025-06-28 16:30 | NUR ---
HIGH CIWAS STARTING AROUND 1500, PATIENT REPORTED FEELING WORSE AND THAT IT FELT LIKE HE WAS PROGRESSIVELY GETTING WORSE. CIWA AT 15. MEDICATED PER EMAR. PATIENT PROGRESSIVELY HAD MORE SEVERE WITHDRAWAL SYMPTOMS. MEDICATED MULTIPLE TIMES PER PROTOCOL. PATIENT CONTINUED TO ESCALATE - FULL BODY TREMORS, AUDITORY AND VISUAL HALLUCIATIONS, INCREASED ANXIETY, NAUSEA, AND HEADACHE ALL PRESENT. SPOKE WITH DR. SYED. DR SYED AND RESIDENT TEAM AT BEDSIDE. PATIENT MEDICATED UNTIL WITHDRAWL CONTROLLED. PRECEDEX RESTARTED PER DR. SYED. PATIENT CALM AND COMFORTABLE WITH THESE MEASURES. ABLE TO ANSWER QUESTIONS AND FOLLOW DIRECTIONS.
[2025-06-28] MEDS ORDERED: LORazepam 2 MG/ML 1ML Injection IV ONE (16:35)
[2025-06-28 17:38] LABS: Magnesium, Blood 1.9 mg/dL (1.6-2.4); Phosphorus, Blood 5.7 mg/dL (2.5-4.9)
--- NOTE | 2025-06-28 18:51 | NUR ---
SHIFT SUMMARY: NEURO: PATIENT ALERT AND ORIENTED X4 THROUGHOUT THE SHIFT. PATIENT ABLE TO MAKE NEEDS KNOWN. PATIENT EXPERIENCED MARKED INCREASE IN WITHDRAWL SYMPTOMS THIS AFTERNOON (SEE NURSE'S NOTE). BY THE END OF THE SHIFT, PATIENT ABLE TO EAT AND REST COMFORTABLY. PATIENT CIWA AT AN 8 AT THE TIME OF THIS NOTE. PRECEDEX AT 0.7 MCG/KG/HR. RESPIRATORY: PATIENT WHEEZY AT TIMES TODAY. DURING EXACERBATION OF WITHDRAWAL, 2L OF 02 VIA NC AND ETCO2 PLACED ON PATIENT. READINGS OF ETC02 IN THE HIGH 50S-LOW 60S. DISCUSSED WITH DR. HENRY. BIPAP PER PROTOCOL. BY THE END OF SHIFT, ETCO2 IN THE 40S. CARDIAC: VITALS STABLE THROUGHOUT THE SHIFT. AT TIMES, PATIENT EXPERIENCES ELEVATED SBP >150. PATIENT TACHYCARDIAC THIS AFTERNOON. BOTH RESOLVED BY THE END OF SHIFT WITH IMPROVED COMFORT OF THE PATIENT. GI/: PATIENT ABLE TO EAT AND DRINK WITH INTERMITTANT NAUSEA. RECEIVED PRN ANTI-EMETIC WITH GOOD EFFECT. PATIENT VOIDING WITHOUT DIFFICULTY. PATIENT REPORTS IT HAS BEEN MULTIPLE DAYS SINCE HIS LAST BOWEL MOVEMENT. SCHEDULED MEDICATIONS GIVEN. PSYCHSOCIAL: PATIENT REPORTED ANXIETY THROUGHOUT THE SHIFT. MEDICATED PER [facility] PROTOCOLS. PATIENT APPRECIATIVE OF THE STAFF. CARDIAC: PATIENT'S
[2025-06-28 18:54] LABS: 7-AMINOCLONAZEPAM, URN, QUANT 18 ng/mL; A-HYDROXYALPRAZOLAM, URN, QNT <5 ng/mL; A-HYDROXYMIDAZOLAM, URN, QNT <20 ng/mL; ALPRAZOLAM, URN, QUANT <5 ng/mL; CHLORDIAZEPOXIDE, URN, QUANT <20 ng/mL; CLONAZEPAM, URN, QUANT <5 ng/mL; DIAZEPAM, URN, QUANT <20 ng/mL; LORAZEPAM, URN, QUANT 44 ng/mL; MIDAZOLAM, URN, QUANT <20 ng/mL; NORDIAZEPAM, URN, QUANT <20 ng/mL; OXAZEPAM, URN, QUANT 40 ng/mL; TEMAZEPAM, URN, QUANT <20 ng/mL
[2025-06-29] VITALS (16 sets, daily range): BP systolic 71–161; BP diastolic 36–98
[2025-06-29 03:31] LABS: BASOPHILS ABSOLUTE AUTO 0.03 K/mm3 (0.00-0.23); BASOPHILS PERCENT AUTO 1 % (0-2); EOSINOPHILS ABSOLUTE AUTO 0.31 K/mm3 (0.00-0.68); EOSINOPHILS PERCENT AUTO 10 % (0-6); Hematocrit 35.4 % (37.0-53.0); Hemoglobin 12.4 g/dL (13.5-17.5); IMMATURE GRAN ABSOLUTE AUTO 0.01 K/mm3 (0.00-0.10); IMMATURE GRAN PERCENT AUTO 0 % (0-1); LYMPHOCYTES ABSOLUTE AUTO 0.31 K/mm3 (0.84-5.20); LYMPHOCYTES PERCENT AUTO 10 % (21-46); MONOCYTES ABSOLUTE AUTO 0.36 K/mm3 (0.16-1.47); MONOCYTES PERCENT AUTO 12 % (4-13); Mean Corpuscular HGB Conc 35.0 g/dL (31.5-36.5); Mean Corpuscular Volume 90 fL (80-100); NEUTROPHILS ABSOLUTE AUTO 1.95 K/mm3 (1.96-9.15); NEUTROPHILS PERCENT AUTO 66 % (41-73); NRBC ABSOLUTE 0.00 K/mm3 (0.00-0.02); NRBC Auto 0.0 /100 WBC (0.0-0.2); Platelet Count 92 K/mm3 (150-400); RDW Coefficient Variation 12.9 % (11.7-14.2); RDW Standard Deviation 42.7 fL (35.1-46.3)
[2025-06-29 03:52] LABS: Alanine Aminotransfer (ALT/SGP 178.0 U/L (12-78); Albumin, Blood 3.1 g/dL (3.4-5.0); Albumin/Globulin Ratio 1.0 (0.8-1.8); Anion Gap 9.0 mmol/L (3-11); Aspartate Aminotrans (AST/SGOT 150.0 U/L (12-37); Bilirubin, Total 0.5 mg/dL (0.1-1.0); Blood Urea Nitrogen 8.0 mg/dL (8-24); CO2, Blood 30.0 mmol/L (21-32); Calcium, Blood 8.6 mg/dL (8.5-10.1); Chloride, Blood 100.0 mmol/L (98-108); Creatinine, Blood 0.66 mg/dL (0.60-1.20); Globulin, Blood 3.2 g/dL (2.2-4.0); Glucose, Blood 116.0 mg/dL (70-99); Phosphorus, Blood 5.5 mg/dL (2.5-4.9); Potassium, Blood 3.7 mmol/L (3.5-5.5); Sodium, Blood 135.0 mmol/L (136-145); Total Protein, Blood 6.3 g/dL (6.4-8.2)
[2025-06-29] MEDS ORDERED: Haloperidol Lactate Inj. 5 MG/ML Injection IV PRN (12:40)
[2025-06-29] MEDS ORDERED: NS 250 ML IV PRN (16:10)
--- NOTE | 2025-06-29 19:36 | NUR ---
SHIFT SUMMARY; PT IS ALERT AND ORIENTED X 4, ABLE TO USE CALL LIGHT AND COMMUNICATE NEEDS, CIWA MAX 14, MEDICATED WITH PRN ATIVAN PER DEC. NO SEIZURE ACTIVITY NOTED. PT C/O AUDITORY AND VISUAL HALLUCINATIONS AT TIMES " THEY COME AND GO" PT REMAINS ON RA WITH SPO2 ABOVE 95% NO RESP DISTRESS NOTED, ETCO2 20-40'S. PT IN SR WITH HR IN THE 90'S, PT HYPERTENSIVE AT TIMES, PRN HYDRALAZINE GIVEN. CLONIDINE ADDED TO DEC. PT ABLE TO USE URINAL AT BEDSIDE, SBA, STEADY GAIT. NO BM THIS SHIFT, BOWEL CARE MEDS GIVEN PER DEC. PLAN OF CARE ONGOING, CALL LIGHT WITHIN REACH.
[2025-06-30] VITALS (8 sets, daily range): BP systolic 109–129; BP diastolic 69–94
[2025-06-30 03:57] LABS: Anion Gap 6.0 mmol/L (3-11); Blood Urea Nitrogen 12.0 mg/dL (8-24); CO2, Blood 33.0 mmol/L (21-32); Calcium, Blood 9.1 mg/dL (8.5-10.1); Chloride, Blood 98.0 mmol/L (98-108); Creatinine, Blood 0.72 mg/dL (0.60-1.20); Glucose, Blood 110.0 mg/dL (70-99); Potassium, Blood 4.2 mmol/L (3.5-5.5); Sodium, Blood 133.0 mmol/L (136-145)
--- NOTE | 2025-06-30 06:41 | NUR ---
End of Shift Summary Medicated per EMR and CIWA scoring. No acute compliants overnight , VSS , and tolerating diet well. Declined to wear ETC02 monitoring and is aware of probable movement to PCU floor today. In agreement with current plan of care.
[2025-06-30] MEDS ORDERED: Polyethylene Glycol 3350 17 gm PO SCH (09:00)
--- NOTE | 2025-06-30 17:30 | NUR ---
TRANSFER PT WAS TRANSFERRED TO MEDICAL FLOOR VIA WHEELCHAIR W/ ALL POSESSIONS, MEDICATION, AND CHART. PT VITAL SIGNS AND MENTATION STABLE UPON ARRIVAL TO ROOM AND WAS RECEIVED BY NURSING STAFF VANESSA.
--- NOTE | 2025-06-30 18:41 | NUR ---
PATIENT ARRIVED TO MEDICAL FLOOR IN ROOM 327. ORIENTED TO CALL SYSTEM AND DISCUSSED PLAN OF CARE. PATIENT ACKNOWLEDGED AND THANKED STAFF. PATIENT HAS COMPLAINTS OF NOT HAVING A BM WITHIN "THE PAST FEW DAYS", PATIENT STATES THIS IS "PRETTY NORMAL". PATIENT VERBALIZED UTILIZING ENEMAS AT HOME, PRN ENEMA DISPENCED PER EMAR. SEE FOR DETAILS. PATIENT IS A+O X4 WITH CLEAR LUNGS THROUHGHOUT, S1 S2 HEARD ON ASCULTATION. SKIN INTACT. PLAN FOR DISCHARGE TO [facility] ON 07-02-25.
--- NOTE | 2025-06-30 19:20 | NUR ---
SHIFT AND TRANSFER SUMMARY: NEURO: PATIENT'S CIWA SCORES BETWEEN 5-9 TODAY. PATIENT REPORTED FEELING BETTER. PATIENT CONTINUES TO BE STEADY ON HIS FEET. REPORTED SOME MILD MUSCLE DISCOMFORT. DECLINED OUT OF BED ACTIVITY SUCH SITTING IN A CHAIR. CARDIAC: HR IN THE 80S TODAY. BLOOD PRESSURES STABLE WITH MAPS >65 AND SBP <140. DENIES CHEST PAIN OR DISCOMFORT. MILDLY TACHY WITH ACTIVITY. RESPIRATORY: PATIENT REMAINS STABLE ON ROOM AIR WITH SPO2 >92%. DENIES SHORTNESS OF BREATH WITH ACTIVITY OR AT REST. GI/: ABLE TO TOLERATE PO INTAKE WITHOUT NAUSEA. REPORTS INCREASING DISCOMFORT OF HIS ABDOMEN RELATED TO LACK OF BOWEL MOVEMENT. INCREASED BOWEL CARE. VOIDING WITHOUT DIFFICULTY. PSYCHSOCIAL: PATIENT CALM AND COOPERATIVE WITH THIS RN. PATIENT REPORTS THAT WHERE HE CURRENTLY LIVES ALSO HOUSES ACTIVE DAILY DRINKERS. HE REPORTED THAT HE IS STARTING TO THINK ABOUT WHERE HE CAN DISCHARGE TO FROM [facility]. TRANSFER: PATIENT TRANSFERRED TO MEDICAL UNIT AFTER DINNER THIS EVENING. REPORT CALLED TO SHIRLEY MENDEZ. PATIENT NOTIFIED EARLIER IN THE DAY THAT HE WOULD BE TRANSFERRING. PATIENT TRANSFERRED IN WHEELCHAIR WITH BREAK RN. PATIENT STABLE AT TIME OD DISCHARGE FROM HIS ICU ROOM.
--- NOTE | 2025-07-01 04:22 | NUR ---
NO ACUTE CHANGES DURING SHIFT. PATIENT ALERT AND ORIENTED X4 AND ABLE TO MAKE NEEDS KNOWN. PATIENT SSTILL SCORING ON CIWA, REQUIRING ATIVAN. PATIENT REPORTS AUDITORY HALLUCINATIONS. PATIENT IS SBA IN THE ROOM. PATIENT IS ON ROOM AIR SATING >92%. JERALD AND MIGUEL POWERGLIDES. PATIENT REPORTED HAVING A BOWEL MOVEMENT AFTER FLEETS ENEMA. BED IN LOW POSITION WITH WHEELS LOCKED. BED ALARM ON. CALL LIGHT WITHIN REACH
[2025-07-01 05:54] LABS: BASOPHILS ABSOLUTE AUTO 0.02 K/mm3 (0.00-0.23); BASOPHILS PERCENT AUTO 1 % (0-2); EOSINOPHILS ABSOLUTE AUTO 0.29 K/mm3 (0.00-0.68); EOSINOPHILS PERCENT AUTO 10 % (0-6); Hematocrit 36.4 % (37.0-53.0); Hemoglobin 12.1 g/dL (13.5-17.5); IMMATURE GRAN ABSOLUTE AUTO 0.01 K/mm3 (0.00-0.10); IMMATURE GRAN PERCENT AUTO 0 % (0-1); LYMPHOCYTES ABSOLUTE AUTO 0.40 K/mm3 (0.84-5.20); LYMPHOCYTES PERCENT AUTO 14 % (21-46); MONOCYTES ABSOLUTE AUTO 0.37 K/mm3 (0.16-1.47); MONOCYTES PERCENT AUTO 13 % (4-13); Mean Corpuscular HGB Conc 33.2 g/dL (31.5-36.5); Mean Corpuscular Volume 94 fL (80-100); NEUTROPHILS ABSOLUTE AUTO 1.83 K/mm3 (1.96-9.15); NEUTROPHILS PERCENT AUTO 63 % (41-73); NRBC ABSOLUTE 0.00 K/mm3 (0.00-0.02); NRBC Auto 0.0 /100 WBC (0.0-0.2); Platelet Count 118 K/mm3 (150-400); RDW Coefficient Variation 13.2 % (11.7-14.2); RDW Standard Deviation 45.3 fL (35.1-46.3)
[2025-07-01 06:15] LABS: Alanine Aminotransfer (ALT/SGP 149.0 U/L (12-78); Albumin, Blood 3.3 g/dL (3.4-5.0); Albumin/Globulin Ratio 1.1 (0.8-1.8); Anion Gap 8.0 mmol/L (3-11); Aspartate Aminotrans (AST/SGOT 73.0 U/L (12-37); Bilirubin, Total 0.3 mg/dL (0.1-1.0); Blood Urea Nitrogen 10.0 mg/dL (8-24); CO2, Blood 31.0 mmol/L (21-32); Calcium, Blood 8.5 mg/dL (8.5-10.1); Chloride, Blood 98.0 mmol/L (98-108); Creatinine, Blood 0.67 mg/dL (0.60-1.20); Globulin, Blood 2.9 g/dL (2.2-4.0); Glucose, Blood 121.0 mg/dL (70-99); Magnesium, Blood 1.9 mg/dL (1.6-2.4); Phosphorus, Blood 4.8 mg/dL (2.5-4.9); Potassium, Blood 3.9 mmol/L (3.5-5.5); Sodium, Blood 133.0 mmol/L (136-145); Total Protein, Blood 6.2 g/dL (6.4-8.2)
[2025-07-01 07:35] VITALS: BP 107/72
[2025-07-01 11:08] VITALS: BP 146/100
[2025-07-01 15:15] VITALS: BP 119/83
[2025-07-01 19:35] VITALS: BP 128/89
--- NOTE | 2025-07-01 19:45 | NUR ---
SHIFT SUMMARY PT A&OX4 HTN, BUT OTHERWISE VSS, RA, NON-TELE. HIGHEST CIWA 11, C/O NAUSEA, ANXIETY, HEADACHE, AUDITORY HALLUCINATIONS, AND IS TREMULOUS. WOULD LIKE TO STAY UNTIL HE GETS INTO [facility] FOR REHAB. ABLE TO MAKE NEEDS KNOWN, CALL LIGHT IN REACH.
[2025-07-02 00:34] VITALS: BP 102/63
[2025-07-02 05:23] VITALS: BP 113/81
--- NOTE | 2025-07-02 06:23 | NUR ---
SUMMARY: PT A/OX4, CALLS APPROPRIATELY TO SPECIFY NEEDS AND IS INDPENDENT IN ROOM. HE C/O VISUAL HALLUCINATION AT START OF SHIFT W/TREMOR, ANXIETY AND SLIGHTLY NAUSEA. CIWA WAS 10 AND SCHEDULED LIBRIUM AND PRN ATIVAN WERE RECEIVED FOR GOOD EFFECT. SNACKS PROVIDED PER PT REQUEST AND PT SLEPT MAJORITY OF NOCTE. HS MIRALAX HELD PER PT REQUEST AND MN CATAPRESS WASN'T GIVEN D/T SBP 102. NO ACUTE CHANGES, VSS/AFEBRILE. PLAN FOR D/C TO [facility] 07/03/25. WILL REPORT TO DAY RN.
[2025-07-02 07:10] VITALS: BP 114/76
[2025-07-02] MEDS ORDERED: Ketorolac Tromethamine 15mg Vial IV ONE (10:15)
[2025-07-02 15:10] VITALS: BP 127/86
--- NOTE | 2025-07-02 18:01 | NUR ---
SHIFT SUMMARY PT AOX4, INDEPENDENT IN THE ROOM. CIWA SCORING STILL IN PROGRESS, MEDICATED PER THE EMAR. PT ALSO MEDICATED FOR ARCEO AND NAUSEA PER THE EMAR. HE CALLS AND MAKES HIS NEEDS KNOWN. SHOWER TODAY. NODDING OFF AND ON THROUGHOUT THE SHIFT, SLEPT MOST OF THE AFTERNOON. PLAN IS FOR HIM TO GO TO [facility] TOMORROW. REPOSITIONS SELF IN BED. CALL LIGHT WITHIN REACH, BED LOCKED AND IN THE LOWEST POSITION. WILL REPORT TO ONCOMING NURSE.
[2025-07-02 19:47] VITALS: BP 149/102
[2025-07-03 05:52] VITALS: BP 108/71
--- NOTE | 2025-07-03 06:22 | NUR ---
SUMMARY: PT A/OX4, IS INDEPENDENT IN ROOM AND ENDORSES NEEDS. CIWA <4 THIS SHIFT W/SCHEDULED LIBRIUM RECEIVED BUT NO PRN ATIVAN WAS REQUIRED. HE CONT'S TO INTERMITTENTLY REPORT VISUAL HALLUCINATION OF "BOY W/SOCCER BALL" AND C/O OF ANXIETY THOUGH AFFECT IS CALM. MELATONIN WAS PROVIDED PER PT REQUEST AT HS AND HE SLEPT HARD T/O NOCTE. HE REMAINED VERY DROWSY THIS AM BARELY ROUSED FOR AM LABS AND VITALS. HE REFUSED MIRALAX AGAIN TONIGHT BUT WAS AGREEABLE TO COLACE AND REPORTS PREVIOUS CONSTIPATION HAS RESOLVED. NO ACUTE CHANGES, VSS AND AFEBRILE. PLAN FOR LIKELY D/C TO [facility] TODAY. WILL REPORT TO DAY RN.
[2025-07-03 06:46] LABS: Anion Gap 8.0 mmol/L (3-11); Blood Urea Nitrogen 9.0 mg/dL (8-24); CO2, Blood 31.0 mmol/L (21-32); Calcium, Blood 8.4 mg/dL (8.5-10.1); Chloride, Blood 101.0 mmol/L (98-108); Creatinine, Blood 0.68 mg/dL (0.60-1.20); Glucose, Blood 127.0 mg/dL (70-99); Potassium, Blood 4.1 mmol/L (3.5-5.5); Sodium, Blood 136.0 mmol/L (136-145)
[2025-07-03 07:59] VITALS: BP 134/94
[2025-07-03 15:18] VITALS: BP 115/79
--- NOTE | 2025-07-03 18:31 | NUR ---
SUMMARY PT WAS SUPPOSED TO BE DISCHARGED TODAY. DR. DIAZ AND DR. SYED CAME BY TO DISCUSS PLAN WITH PT. AM CIWA WAS LESS THAN 8, STABLE. DISCUSSED WITH DR. DIAZ THAT PT SEEMS A BIT SOMNOLENT WITH CURRENT REGIMEN OF LIBRIUM, GABAPENTIN AND PRNS. CONT PULSE OX IS READING 89-91% WHILE AWAKE. PT AROUSABLE HOWEVER VERY DROWSY WHILE DISCUSSING CARE THIS AM. DR. DIAZ CHAGNED LIBRIUM FROM TID TO BID AND DC'D GABAPENTIN AFTER AM DOSE WAS ADMINISTERED. PT IN THE AFTERNOON STARTED ENDORSING ANXIETY ABOUT DISCHARGING. STATES HE HAS HAD BAD OUTCOMES IN THE PAST AFTER LEAVING THE HOSPITAL. PT THEN STATED GENERALLY THAT "HE WASNT FEELING GOOD, SOMETHING DOESNT FEEL RIGHT". VITALS HAVE REMAINED WITHIN NORMAL LIMITS. CIWA WAS WITHIN RANGE TO ADMINISTER ATIVAN DUE TO ANXIETY AND ONGOING NAUSEA, PT ALSO STILL REPORTS VISUAL/AUDITORY HALLUCINATIONS THAT HE KNOWS ARE NOT REALITY. PT A/OX4, ABLE TO MAKE NEEDS KNOWN. PT IS EVEN MORE ALERT THIS EVENING AND HE AND I HAD A LONG CONVERSATION ABOUT HIS PAST AND WHAT LEAD HIM TO THIS POINT. HE BECAME A BIT TEARFUL AND SATES HE IS JUST ANXIOUS TO LEAVE AND NOT HAVE THE HELP HE HAS HERE. PT ENDORSES AN UNSUPPORTIVE HOME ENVIRONMENT AND IS WORRIED ABOUT THAT AFTER [facility]. WAS MEDICATED WITH ATIVAN ABOUT 1815 DUE TO ANXIETIES. 1600 CIWA SCORE WAS 7, RIGHT AT [place]. PT TO DISCHARGE TOMORROW, DOCTOR AND ROUSTABOUT HAND AWARE THAT [facility] GAVE A EFREN PERIOD OF 2 DAYS TO HOLD BED BEFORE THEY HAVE TO GIVE IT UP. PT DOES NOT WANT TO LOSE HIS BED AT [facility]. DC'D JERALD POWERGLIDE PER PT REQUEST. MIGUEL REMAINS PATENT HOWEVER DOES NOT DRAW BACK. NO OTHER CONCERNS PRIOR TO END OF SHIFT.
[2025-07-03 19:26] VITALS: BP 109/68
[2025-07-04 02:37] VITALS: BP 115/82
--- NOTE | 2025-07-04 05:21 | NUR ---
SHIFT SUMMARY PT ALERT ORIENTED X 4 ABLE TO VERBALIZE NEEDS GETS UP TO THE BATHROOM AD SOREN. C/O BEING VERY ANXIOUS ABOUT DISCHARGING TO A REHAB. HIS CIWA WAS A 6 AND 8. I MEDICATED HIM WITH ATIVAN X 1 WITH GOOD RELIEF. HE ALSO REMAINS ON HIS LIBRIUM BID. HES DUE TO DC TODAY TO [facility]. HE ASKED FOR THE NICORETTE GUM X 1. CONTINUES ON A CONTINUOUS PULSE OX SATTING BETWEEN 89-93%. POWERGLIDE IS INTACT TO HIS MIGUEL. HES TRYING TO COME UP WITH SEVERAL DIFFERENT REASONS ON WHY HES NOT READY TO DISCHARGE. HES RESTING IN BED AT THIS TIME WITH CALL LIGHT IN REACH
[2025-07-04 07:20] VITALS: BP 108/68
[2025-07-04] MEDS ORDERED: CHLO25 PO (10:00)
[2025-07-04] MEDS ORDERED: MIRALAX17 GM PO (10:00)
[2025-07-04] MEDS ORDERED: GABA300 PO (10:00)
[2025-07-04] MEDS ORDERED: SENN187 PO (10:01)
--- NOTE | 2025-07-04 10:17 | NUR ---
PATIENT BEING DISCHARGE TODAY TO [facility]ENTER FOR FURTHER TREATMENT. PATIENT LAYING IN BED PLAYING VIDEO GAME. THIS NURSE REMOVED IV, GAVE PATIENT DISCHARGE INSTRUCTIONS AND MEDICATIONS FROM PHARMACY THAT WERE HOME MEDS. BAG FROM PHARMACY STAPLED. PLACED ON TOP OF PATIENTS SUIT CASE. PATIENT HAS NO CONCERNS AND STATED HE WOULD GET DRESSED WHEN HE WAS DONE WITH HIS GAME.
[2025-07-04 20:25] LABS: EDDP,URN,QUANT 2175 ng/mL; METHADONE,URN,QUANT >5000 ng/mL
[2025-07-04] MEDS ORDERED: ONDA4ODT MM (20:56)
== END 2025-07-04 10:45 | disposition home or self-care (01) | DRG 897 ==
LOC: ER 12:12 → ICUE 12:13 → MEDS 06-26 09:56 → ICUE 06-26 09:56 → MEDS 06-30 18:21
PROVIDERS: Physician Assistant; Student in an Organized Health Care Education/Training Program; ADMIT Internal Medicine
DX: F10.130 Alcohol abuse with withdrawal, uncomplicated (principal); E87.1 Hypo-osmolality and hyponatremia; D61.818 Other pancytopenia; E87.20 Acidosis, unspecified; J45.909 Unspecified asthma, uncomplicated; F32.9 Major depressive disorder, single episode, unspecified; K59.09 Other constipation; Z88.8 Allergy status to other drugs, medicaments and biological substances; Z79.899 Other long term (current) drug therapy
CPT/HCPCS: 36415; 51703; 71045; 80048; 80053; 80320; 81003; 83735; 83930; 83935; 84100; 84146; 84300; 85025; 93005; 93010; 94640; 94664; 94760; 94762; 96361; 96365; 96368; 96375; 96376; 99285-25; A9270; C1751; G0378; G0480; G0481; J0360; J1650; J1885; J2060; J2405; J3411; J3480; J7040; J7050; J7120

== ENCOUNTER 2025-07-04 15:28 | Emergency (ER) | payer OTHER ==
[~2025-07-04] VITALS: Ht 175.3 cm; Wt 90.7 kg
[~2025-07-04 15:28] MED LIST changes: +BUSP5 PO; +MIRALAX17 GM PO; +Phenergan25 M1 PO; +SENN187 PO
[2025-07-04 16:57] LABS: BASOPHILS ABSOLUTE AUTO 0.05 K/mm3 (0.00-0.23); BASOPHILS PERCENT AUTO 1 % (0-2); EOSINOPHILS ABSOLUTE AUTO 0.32 K/mm3 (0.00-0.68); EOSINOPHILS PERCENT AUTO 5 % (0-6); Hematocrit 40.2 % (37.0-53.0); Hemoglobin 14.1 g/dL (13.5-17.5); IMMATURE GRAN ABSOLUTE AUTO 0.10 K/mm3 (0.00-0.10); IMMATURE GRAN PERCENT AUTO 2 % (0-1); LYMPHOCYTES ABSOLUTE AUTO 0.67 K/mm3 (0.84-5.20); LYMPHOCYTES PERCENT AUTO 10 % (21-46); MONOCYTES ABSOLUTE AUTO 0.97 K/mm3 (0.16-1.47); MONOCYTES PERCENT AUTO 15 % (4-13); Mean Corpuscular HGB Conc 35.1 g/dL (31.5-36.5); Mean Corpuscular Volume 91 fL (80-100); NEUTROPHILS ABSOLUTE AUTO 4.59 K/mm3 (1.96-9.15); NEUTROPHILS PERCENT AUTO 69 % (41-73); NRBC ABSOLUTE 0.00 K/mm3 (0.00-0.02); NRBC Auto 0.0 /100 WBC (0.0-0.2); RDW Coefficient Variation 13.2 % (11.7-14.2); RDW Standard Deviation 43.3 fL (35.1-46.3)
[2025-07-04 17:03] LABS: Alanine Aminotransfer (ALT/SGP 179.0 U/L (12-78); Albumin, Blood 3.6 g/dL (3.4-5.0); Albumin/Globulin Ratio 1.0 (0.8-1.8); Anion Gap 8.0 mmol/L (3-11); Aspartate Aminotrans (AST/SGOT 123.0 U/L (12-37); Bilirubin, Total 0.4 mg/dL (0.1-1.0); Blood Urea Nitrogen 14.0 mg/dL (8-24); CO2, Blood 29.0 mmol/L (21-32); Calcium, Blood 9.3 mg/dL (8.5-10.1); Chloride, Blood 101.0 mmol/L (98-108); Creatinine, Blood 0.66 mg/dL (0.60-1.20); Globulin, Blood 3.7 g/dL (2.2-4.0); Glucose, Blood 110.0 mg/dL (70-99); Potassium, Blood 4.5 mmol/L (3.5-5.5); Sodium, Blood 133.0 mmol/L (136-145); Total Protein, Blood 7.3 g/dL (6.4-8.2)
[2025-07-04] MEDS ORDERED: Ketorolac Tromethamine 15mg Vial IV ONE (17:25)
[2025-07-04 18:11] LABS: pH Blood Venous 7.40 (7.34-7.37)
[2025-07-04 18:48] LABS: Influenza A, PCR NEGATIVE (NEGATIVE); Influenza B, PCR NEGATIVE (NEGATIVE); Resp Syncytial Virus, PCR NEGATIVE (NEGATIVE); SARS-Cov-2 (COVID-19) PCR, MMC NEGATIVE (NEGATIVE)
[2025-07-04] MEDS ORDERED: ONDA4ODT MM (20:56)
== END 2025-07-04 21:17 | disposition home or self-care (01) ==
LOC: ER 15:28
PROVIDERS: Emergency Medicine
DX: E87.1 Hypo-osmolality and hyponatremia (principal); J96.90 Respiratory failure, unspecified, unspecified whether with hypoxia or hypercapnia; R55 Syncope and collapse; R51.9 Headache, unspecified; R74.01 Elevation of levels of liver transaminase levels; Z79.899 Other long term (current) drug therapy; J44.9 Chronic obstructive pulmonary disease, unspecified
CPT/HCPCS: 71046; 80053; 82803; 83690; 84484; 85025; 87637; 93005; 93010; 96374; 99284-25; J1885

== ENCOUNTER 2025-10-01 10:41 | Inpatient (IN) | payer OTHER ==
[2025-10-01] VITALS (37 sets, daily range): BP systolic 129–174; BP diastolic 93–150
[~2025-10-01] VITALS: Ht 175.3 cm; Wt 90.9 kg
[~2025-10-01 10:41] MED LIST changes: +BUSP10 PO; -BUSP5 PO; -EFFEXOR XR150 MG PO; +ONDA4ODT MM; +QUET300 PO; +VENL75ER PO
[2025-10-01] MEDS ORDERED: HYDHCL25 PO (11:00)
[2025-10-01] MEDS ORDERED: PRAZ2 PO (11:00)
[2025-10-01] MEDS ORDERED: Vitamin B-12100 MCG PO (11:00)
[2025-10-01] MEDS ORDERED: CATAPRES0.1 MG PO (11:00)
[2025-10-01] MEDS ORDERED: LORazepam 2 MG/ML 1ML Injection IM ONE (11:05)
[2025-10-01 11:15] LABS: BASOPHILS ABSOLUTE AUTO 0.02 K/mm3 (0.00-0.23); BASOPHILS PERCENT AUTO 1 % (0-2); EOSINOPHILS ABSOLUTE AUTO 0.15 K/mm3 (0.00-0.68); EOSINOPHILS PERCENT AUTO 4 % (0-6); Hematocrit 42.7 % (37.0-53.0); Hemoglobin 14.9 g/dL (13.5-17.5); IMMATURE GRAN ABSOLUTE AUTO 0.01 K/mm3 (0.00-0.10); IMMATURE GRAN PERCENT AUTO 0 % (0-1); LYMPHOCYTES ABSOLUTE AUTO 0.33 K/mm3 (0.84-5.20); LYMPHOCYTES PERCENT AUTO 8 % (21-46); MONOCYTES ABSOLUTE AUTO 0.38 K/mm3 (0.16-1.47); MONOCYTES PERCENT AUTO 9 % (4-13); Mean Corpuscular HGB Conc 34.9 g/dL (31.5-36.5); Mean Corpuscular Volume 86 fL (80-100); NEUTROPHILS ABSOLUTE AUTO 3.36 K/mm3 (1.96-9.15); NEUTROPHILS PERCENT AUTO 79 % (41-73); NRBC ABSOLUTE 0.00 K/mm3 (0.00-0.02); NRBC Auto 0.0 /100 WBC (0.0-0.2); Platelet Count 132 K/mm3 (150-400); RDW Coefficient Variation 13.2 % (11.7-14.2); RDW Standard Deviation 40.5 fL (35.1-46.3)
[2025-10-01] MEDS ORDERED: LORazepam 2 MG/ML 1ML Injection IV SCH (11:25)
[2025-10-01] MEDS ORDERED: NS 1,000 ML IV SCH ×2 (11:25→13:10)
[2025-10-01] MEDS ORDERED: LORazepam 2 MG/ML 1ML Injection IV PRN ×3 (11:30→13:20)
[2025-10-01 11:48] LABS: Alanine Aminotransfer (ALT/SGP 81 U/L (12-78); Albumin, Blood 4.2 g/dL (3.4-5.0); Albumin/Globulin Ratio 1.2 (0.8-1.8); Anion Gap 13 mmol/L (3-11); Aspartate Aminotrans (AST/SGOT 70 U/L (12-37); Bilirubin, Total 0.7 mg/dL (0.1-1.0); Blood Urea Nitrogen 9 mg/dL (8-24); CO2, Blood 25 mmol/L (21-32); Calcium, Blood 9.0 mg/dL (8.5-10.1); Chloride, Blood 101 mmol/L (98-108); Creatinine, Blood 0.73 mg/dL (0.60-1.20); Ethanol (Alcohol), Blood, Med <3 mg/dL; Globulin, Blood 3.4 g/dL (2.2-4.0); Glucose, Blood 97 mg/dL (70-99); Potassium, Blood 4.5 mmol/L (3.5-5.5); Sodium, Blood 134 mmol/L (136-145); Total Protein, Blood 7.6 g/dL (6.4-8.2)
[2025-10-01] MEDS ORDERED: Ondansetron HCl 2 MG / ML 2ML Vial IV PRN (13:15)
[2025-10-01] MEDS ORDERED: HydrALAZINE HCl 20 MG / ML 1ML Vial IV PRN (13:15)
[2025-10-01] MEDS ORDERED: FLU VACC TS2025-26(6MOS UP)/PF 45 MCG/0.5 ML SYRINGE IM SCH (13:20)
[2025-10-01] MEDS ORDERED: NS 250 ML IV PRN (15:35)
--- NOTE | 2025-10-01 15:42 | NUR ---
ASSUMED CARE THIS RN ASSUMED CARE OF PATIENT AT 1458 WITH PRECEPTOR NADIRA HERNANDEZ. PATIENT TRANSFERRED FROM ED, WAS ABLE TO AMBULATE FROM [facility] TO ICU BED WITH 1 NURSE ASSIST. PATIENT IS ALERT AND ORIENTED TO SELF. PATIENT PARTICPATES IN CARE. HIS O2 IS >98% ON RA. RESPIRATIONS ARE EVEN AND UNLABORED. SYSTOLIC BP >140. HR IN 90-100S. PATIENT APPEARS DIAPHORETIC, SPEAKS TANGENTIALLY AND IS UNABLE TO FOLLOW CONVERSATION WITHOUT GETTING CONFUSED. HE IS FIDGETING AND ANXIOUS DURING INITIAL ASSESSMENT. SEIZURE PADS IN PLACE, BED ALARM ON. CALL LIGHT IN REACH. BED IN LOWEST POSITION.
[2025-10-01] MEDS ORDERED: Misc. Inhaler INH PRN (16:55)
[2025-10-01] MEDS ORDERED: Albuterol HFA200 ACT/6.7 GM INH INH PRN (17:15)
--- NOTE | 2025-10-01 18:35 | NUR ---
SHIFT SUMMARY NO ACUTE EVENTS SINCE ADMISSION. PATIENT HAS BEEN RESTING COMFORTABLY WITH EYES CLOSED FOR MOST OF EVENING, CURRENTLY SITTING UP EATING DINNER. PT REPORTS GOOD APPETITE AND IS WILLING TO EAT HIS CLEAR LIQUID DIET. PATIENT IS ON RA WITH SPO2 >98%. SYSTOLIC >130, MAP >70. HR IN 90-110S. PATIENT HAS BEEN ALERT AND ORIENTED TO PERSON AND PLACE. HE DOES NOT CONSISTENTLY IDENTIFY PLACE OR SITUATION. PT CIWA HAS BEEN CONTROLLED WITH LIBRIUM AND PATIENT IS AGREEABLE TO TX PLAN. HE IS ABLE TO USE URINAL AND BSC WITH NURSE ASSIST. SEIZURE PADS IN PLACE. BED ALARM ON. CALL LIGHT IN REACH AND BED IN LOWEST POSTION.
[2025-10-02] VITALS (37 sets, daily range): BP systolic 116–166; BP diastolic 80–138
[2025-10-02 04:18] LABS: Hematocrit 38.4 % (37.0-53.0); Hemoglobin 13.0 g/dL (13.5-17.5); Mean Corpuscular HGB Conc 33.9 g/dL (31.5-36.5); Mean Corpuscular Volume 85 fL (80-100); NRBC ABSOLUTE 0.00 K/mm3 (0.00-0.02); NRBC Auto 0.0 /100 WBC (0.0-0.2); Platelet Count 111 K/mm3 (150-400); RDW Coefficient Variation 12.9 % (11.7-14.2); RDW Standard Deviation 40.0 fL (35.1-46.3)
[2025-10-02 04:43] LABS: Anion Gap 7.0 mmol/L (3-11); Blood Urea Nitrogen 7.0 mg/dL (8-24); CO2, Blood 30.0 mmol/L (21-32); Calcium, Blood 8.4 mg/dL (8.5-10.1); Chloride, Blood 101.0 mmol/L (98-108); Creatinine, Blood 0.69 mg/dL (0.60-1.20); Glucose, Blood 92.0 mg/dL (70-99); Magnesium, Blood 2.0 mg/dL (1.6-2.4); Phosphorus, Blood 3.3 mg/dL (2.5-4.9); Potassium, Blood 3.9 mmol/L (3.5-5.5); Sodium, Blood 134.0 mmol/L (136-145)
--- NOTE | 2025-10-02 05:29 | NUR ---
SHIFT SUMMARY PT ALERT AND ORIENTED T/O THE NIGHT, CIWA SCORES HAVE BEEN 8-11 AND MEDICATED PER EMAR WITH LIBRIUM AND ATIVAN NEEDED, PT AFEBRILE, FOLLOWS COMMANDS, AND ABLE TO MAKE NEEDS KNOWN. PT ON RA WOTH SPO2 >95, PT DENIES ANY SOB. PT SBP IN THE 120-160 AND MEDICATED WITH HYDRALAZINE NEEDED FOR SBP >160, HR IN THE 80-90S NSR, PT DENIES CHEST PAIN/PRESSURE. PT AMBULATING TO IN-ROOM TOILET WITH SBA. PT TOLERATING PO INTAKE OF CLEAR LIQUID DIET. PT HAS NS RUNNING @ 75ML/HR. CALL LIGHT [employer] REACH, NO IMMEDIATE NEEDS/CONCERNS NOTED AT THIS TIME. WILL REPORT TO ONCOMING MARY
[2025-10-02] MEDS ORDERED: Enoxaparin 40 MG/0.4 ML SYR SC SCH (09:00)
--- NOTE | 2025-10-02 11:24 | NUR ---
SI PRECAUTIONS PT WITH ESCALATING VERBALIZATIONS OF SUICIDAL IDEATIONS TO THIS RN AND OTHER STAFF MEMBERS. PT REPORTS JUST WANTING TO AFTER DISCUSSION WITH DR VALVERDE ABOUT NOT RESTARTING METHADONE. DR VALVERDE UPDATED AND PT PLACED ON HIGH SI PRECAUTIONS AT THIS TIME. DR HANEY FROM PSYCHIATRY CONSULTED. ALL PT BELONGINGS IN LOCKED CABINET IN ROOM. 1:1 SITTER. WILL CONTINUE TO MONITOR.
--- NOTE | 2025-10-02 13:27 | NUR ---
DR MEDINA HANEY HERE TO SEE PT. ALL SUICIDE PRECAUTIONS AND 1:1 SITTER DISCONTINUED AT THIS TIME PER DR HANEY ORDERS.
--- NOTE | 2025-10-02 17:28 | NUR ---
SHIFT SUMMARY PT HAS REMAINED ALERT AND ORIENTED THIS SHIFT. PT ANSWERS ALL QUESTIONS APPROPRIATELY AND IS ABLE TO FOLLOW COMMANDS WELL. PT WITH INTERMITTENT VISIBLE TREMORS ONLY NOTED WITH STAFF AT BEDSIDE. PT VERBALIZES REQUESTS FOR "MORE MEDS FOR MY WITHDRAWALS" THROUGHOUT THE SHIFT. PT WITH BREIF EPISODES OF RESTING QUIETLY AFTER EMBOSSOGRAPH OPERATOR OF LIBRIUM AND ATIVAN THROUGHOUT THE SHIFT. PT TAKING IN PO INTAKE WELL. PT UP OUT OF BED TO TOILET TO VOID WITHOUT DIFFICULTY. VITAL SIGNS REMAIN STABLE. PG TO JERALD WITH NS INFUSING AT 75 ML/HR AND PIV TO LAC SALINE LOCKED. NO FAMILY AT BEDSIDE. NO FURTHER COMMENTS OF SI NOTED SINCE DR HANEY VISIT THIS SHIFT. WILL CONTINUE TO MONITOR AND REPORT OFF TO ONCOMING RN.
[2025-10-03] VITALS (9 sets, daily range): BP systolic 124–150; BP diastolic 81–105
[2025-10-03 03:31] LABS: BASOPHILS ABSOLUTE AUTO 0.02 K/mm3 (0.00-0.23); BASOPHILS PERCENT AUTO 1 % (0-2); EOSINOPHILS ABSOLUTE AUTO 0.36 K/mm3 (0.00-0.68); EOSINOPHILS PERCENT AUTO 9 % (0-6); Hematocrit 42.5 % (37.0-53.0); Hemoglobin 14.4 g/dL (13.5-17.5); IMMATURE GRAN ABSOLUTE AUTO 0.01 K/mm3 (0.00-0.10); IMMATURE GRAN PERCENT AUTO 0 % (0-1); LYMPHOCYTES ABSOLUTE AUTO 0.45 K/mm3 (0.84-5.20); LYMPHOCYTES PERCENT AUTO 11 % (21-46); MONOCYTES ABSOLUTE AUTO 0.42 K/mm3 (0.16-1.47); MONOCYTES PERCENT AUTO 10 % (4-13); Mean Corpuscular HGB Conc 33.9 g/dL (31.5-36.5); Mean Corpuscular Volume 86 fL (80-100); NEUTROPHILS ABSOLUTE AUTO 2.80 K/mm3 (1.96-9.15); NEUTROPHILS PERCENT AUTO 69 % (41-73); NRBC ABSOLUTE 0.00 K/mm3 (0.00-0.02); NRBC Auto 0.0 /100 WBC (0.0-0.2); Platelet Count 123 K/mm3 (150-400); RDW Coefficient Variation 12.8 % (11.7-14.2); RDW Standard Deviation 39.9 fL (35.1-46.3)
[2025-10-03 03:53] LABS: Alanine Aminotransfer (ALT/SGP 73.0 U/L (12-78); Albumin, Blood 3.5 g/dL (3.4-5.0); Albumin/Globulin Ratio 1.1 (0.8-1.8); Anion Gap 7.0 mmol/L (3-11); Aspartate Aminotrans (AST/SGOT 48.0 U/L (12-37); Bilirubin, Total 0.7 mg/dL (0.1-1.0); Blood Urea Nitrogen 10.0 mg/dL (8-24); CO2, Blood 32.0 mmol/L (21-32); Calcium, Blood 8.7 mg/dL (8.5-10.1); Chloride, Blood 101.0 mmol/L (98-108); Creatinine, Blood 0.7 mg/dL (0.60-1.20); Globulin, Blood 3.1 g/dL (2.2-4.0); Glucose, Blood 113.0 mg/dL (70-99); Magnesium, Blood 2.1 mg/dL (1.6-2.4); Phosphorus, Blood 4.1 mg/dL (2.5-4.9); Potassium, Blood 3.8 mmol/L (3.5-5.5); Sodium, Blood 136.0 mmol/L (136-145); Total Protein, Blood 6.6 g/dL (6.4-8.2)
--- NOTE | 2025-10-03 05:33 | NUR ---
SHIFT SUMMARY PATIENT SLEEP OFF AND ON THROUGH SHIFT. PATIENT STATES HE SEES SHADOWS AND HEARS THINGS. PATIENT SOMETIMES HAS VISIBLE TREMORS. PATIENT IS A&O X4 EVEN WHEN HAVING HALLUCINATIONS VISIBLE AND AUDITORY. PATEINT AFERIBLE. HR IS THE 70-90'S AND SBP 130-150'S. PATIENT HAS ASKED FOR SNACKS AND DRINKS MUTIPLE TIMES THROUGH SHIFT AND EAT AND DRANK 100%. PATEINT REFUSES TO USE CALL LIGHT TO HAVE ASSIST FOR BATHROOM USE. PATIENT STATES HE FEELS STEADY WHEN WELCOME TO TOILET IN ROOM. PATIENT WILL UNDO MONITORS AND RECONNECT WHEN FINSHED. PATEINT SCORED 9-22 CIWA THROUGH SHIFT AND MEDICATED PER EMAR. PATEINT HAS A LEFT UPPER ARM POWERGLIDE AND LEFT AC PERIPHERAL IV. NORMAL SALINE INFUSING @75MLS/HR. PATEINT ON ROOM AIR SATTTING IN HIGH 90'S TO 100. PATIENT DOES USE CALL LIGHT TO ASK FOR FOOD, SNACKS AND MEDICATION. CALL LIGHT WITHIN REACH.
--- NOTE | 2025-10-03 07:57 | NUR ---
Suggested OOB to chair for breakfast, and he was agreeable. Independent with simple cues to get up to chair. Leaning over, states symtoms are: chills, nausea, headache, not thinking right, and hallucinations. No tremors noted. Able to take medications and carry on conversation without any difficulty noted. Given librium at this time. He is attempting to eat some breakfast.
[2025-10-03] MEDS ORDERED: Folic Acid 1 MG TAB PO SCH (09:00)
--- NOTE | 2025-10-03 09:10 | NUR ---
Dr. Lemos was here rounding on the patient. new orders for meds received. Pt is sitting in bed, appears dejected, quiet, little movement and expresses little interest in activities or conversations with desktop support engineer. Eating some, drinking well.
--- NOTE | 2025-10-03 09:30 | NUR ---
Pt was given clonidine and venlafaxor at this time.
--- NOTE | 2025-10-03 14:05 | NUR ---
UPDATE: RECIEVED A CALL FROM [facility], PT CALLED [facility] STATING "IM GOING TO LEAVE AMA AND KILL MYSELF". ENTERPRISE PROJECT MANAGER AT BEDSIDE TO WATCH PT. REMOVING ALL JEWLERY, BELONGINGS, AND PLACING ON PAPER SCRUBS. PT WILL TRANSFER TO A ROOM CLOSER TO GLUE MILL OPERATOR WITH 1:1 SITTER ONCE AVAILABLE. CALLED AND NOTIFIED MD. HIGH RISK SUICIDE ORDERS PUT IN PLACE PER MD ORDER. CALLED PSYCHAITRY AND UPDATED ON SUICIDAL IDEATIONS, MD STATED HE WOULD SEE PT TOMORROW. PT CURRETLY LYING IN BED SAYING "8 YEARS OF SOBRIETY GONE" AND "YOU GUYS BETTER KEEP ME SAFE". THIS RN AND ENTERPRISE PROJECT MANAGER AT BEDSIDE.
--- NOTE | 2025-10-03 15:37 | NUR ---
SHIFT SUMMARY: PT A/O X4, ABLE TO MAKE NEEDS KNOWN. PT APPEARS TO HAVE POOR COPING SKILLS WITH ANXIETY AND STRESSORS. PT HAD AN EPISODE OF PULLING AT HAIR AND HITTING SELF WITH RUBBER BAND TODAY. WHEN ASLEEP PT APPEARS TO HAVE NO TREMORS OR SWEAT, WHEN AWAKE PT STATES HE IS ANXIOUS, SHAKY, AND HAVING HALLUCINATIONS. CIWA SCORES RANGING FROM 3-14 TODAY DUE TO AGITATION AND ANXIETY. MEDICATED FOR ANXIETY THROUGHOUT SHIFT TODAY. THIS AFTERNOON PT CALLED [facility], STATED IN A PREVIOUS NOTE. PT WAS HAVING SUICIDAL IDEATIONS AND TOLD [facility] "IM GOING TO LEAVE AMA AND KILL MYSELF". ONCE CONFRONTED PT STATES "I NEVER SAID I WANTED TO KILL MYSELF, I SAID I WAS GOING TO DO HEROIN AGAIN". WAS NOTIFIED. PT PLACED A HIGH SI, 1:1 SITTER IN ROOM. PT ON ROOM AIR, SATS >95%. DENIES SOB. SR-ST 80-100s, DENIES CHEST PAIN/PRESSURE. ALL OTHER VSS. PT LYING IN BED, CALL WITHIN REACH. WILL REPORT TO ONCOMING RN.
--- NOTE | 2025-10-03 18:26 | NUR ---
Pt is c/o anxiety, agitation. States he has "no coping skills" and wants to get IV medication to "sedate" him. Given Librium, but pt says that he wants something IV. Requesting po antianxiety medications from the attending MD. CIWA score is less than 8.
[2025-10-03] MEDS ORDERED: Ketorolac Tromethamine 15mg Vial IV PRN (19:25)
[2025-10-04 04:09] VITALS: BP 131/82
[2025-10-04 04:52] LABS: BASOPHILS ABSOLUTE AUTO 0.02 K/mm3 (0.00-0.23); BASOPHILS PERCENT AUTO 1 % (0-2); EOSINOPHILS ABSOLUTE AUTO 0.38 K/mm3 (0.00-0.68); EOSINOPHILS PERCENT AUTO 10 % (0-6); Hematocrit 38.0 % (37.0-53.0); Hemoglobin 12.8 g/dL (13.5-17.5); IMMATURE GRAN ABSOLUTE AUTO 0.01 K/mm3 (0.00-0.10); IMMATURE GRAN PERCENT AUTO 0 % (0-1); LYMPHOCYTES ABSOLUTE AUTO 0.46 K/mm3 (0.84-5.20); LYMPHOCYTES PERCENT AUTO 12 % (21-46); MONOCYTES ABSOLUTE AUTO 0.35 K/mm3 (0.16-1.47); MONOCYTES PERCENT AUTO 9 % (4-13); Mean Corpuscular HGB Conc 33.7 g/dL (31.5-36.5); Mean Corpuscular Volume 87 fL (80-100); NEUTROPHILS ABSOLUTE AUTO 2.55 K/mm3 (1.96-9.15); NEUTROPHILS PERCENT AUTO 68 % (41-73); NRBC ABSOLUTE 0.00 K/mm3 (0.00-0.02); NRBC Auto 0.0 /100 WBC (0.0-0.2); Platelet Count 108 K/mm3 (150-400); RDW Coefficient Variation 13.0 % (11.7-14.2); RDW Standard Deviation 41.1 fL (35.1-46.3)
[2025-10-04 05:11] LABS: Alanine Aminotransfer (ALT/SGP 72.0 U/L (12-78); Albumin, Blood 3.2 g/dL (3.4-5.0); Albumin/Globulin Ratio 1.1 (0.8-1.8); Anion Gap 8.0 mmol/L (3-11); Aspartate Aminotrans (AST/SGOT 54.0 U/L (12-37); Bilirubin, Total 0.6 mg/dL (0.1-1.0); Blood Urea Nitrogen 10.0 mg/dL (8-24); CO2, Blood 29.0 mmol/L (21-32); Calcium, Blood 8.3 mg/dL (8.5-10.1); Chloride, Blood 104.0 mmol/L (98-108); Creatinine, Blood 0.64 mg/dL (0.60-1.20); Globulin, Blood 2.9 g/dL (2.2-4.0); Glucose, Blood 103.0 mg/dL (70-99); Magnesium, Blood 2.0 mg/dL (1.6-2.4); Phosphorus, Blood 4.3 mg/dL (2.5-4.9); Potassium, Blood 3.6 mmol/L (3.5-5.5); Sodium, Blood 137.0 mmol/L (136-145); Total Protein, Blood 6.1 g/dL (6.4-8.2)
--- NOTE | 2025-10-04 06:44 | NUR ---
SHIFT SUMMARY PATIENT A/OX4. PER DAY SHIFT, PATIENT WAS VERY AGITATED AND WANTING TO LEAVE HOSPITAL. [employer] DETECTIVE WAS AT BEDSIDE DURING SHIFT CHANGE, SPOKE WITH PATIENT, TO WHICH HE AGREED TO STAY VOLUNTARILY. PATIENT WAS MEDICATED PER EMAR. AND SLEPT WELL FOR MOST OF THE NIGHT. ALL VITALS STABLE. RESP EVEN AND UNLABORED WHILE ASLEEP. SITTER REMAINED AT DOORWAY WITH CONTINUOUS 1:1 OBSERVATION FOR SAFETY. PLAN OF CARE ONGOING.
[2025-10-04 08:04] VITALS: BP 126/93
[2025-10-04 10:02] VITALS: BP 125/90
[2025-10-04 11:50] VITALS: BP 121/76
--- NOTE | 2025-10-04 12:11 | NUR ---
Pt placed on precautionary ETCO2 monitoring due to being very somnulent. Arouses slightly to tactile stimulation, does not engage in conversation nor open his eyes. HOB elevated 30 degrees. RR 11-12/min, EtCO2 is 48. Normal sinus rhythm noted by telemetry.
[2025-10-04 15:39] VITALS: BP 139/86
--- NOTE | 2025-10-04 16:01 | NUR ---
Spiritual Care Visit | Nurse Request Pt. is awake and sitting up on the side of his bed when this integrity specialist entered the room. The Pt. displayed evidence of both frustration and depression. Pt. verbalized "Everyone is lying to me". While empathy was difficult this integrity specialist sought to identify and normalize the Pt. experience. The Pt. was preparing to be discharged home but also displayed evidence of concern about that. Listen with pastoral care and a calming presence. This integrity specialist assisted the Pt. as he put on his jewelry. Pt. began to display eviednece of trust. Prayed with the Pt. Pt. displayed an improved spirit, and verbalized gratitude to this integrity specialist.
--- NOTE | 2025-10-04 18:43 | NUR ---
SHIFT SUMMARY PATIENT IS ALERT AND ORIENTED, ABLE TO FOLLOW COMMANDS AND MAKE NEEDS KNOWN. PATIENT REPORTING HEADACHES, ANXIETY AND VISUAL/AUDITORY HALLUCINATIONS THROUGHOUT SHIFT, SEE CIWA ASSESSMENTS AND EMAR FOR FURTHER DETAILS. VSS, TELE IN PLACE, HR 60'S-80'S. PATIENT REPORTS CHEST DISCOMFORT DURING EPISODES OF ANXIETY. PATIENT REPORTS INTERMITTENT NAUSEA THROUGHOUT SHIFT. SITTER IN PLACE AT START OF SHIFT DUE TO SI PRECAUTIONS. PSYCH CONSULT PERFORMED TODAY, SI PRECAUTIONS REMOVED, SITTER NO LONGER NECESSARY PER PROVIDER. PATIENT IS A SBA TO THE BATHROOM. PATIENT UP IN BED, BED IN LOWEST POSITION, CALL LIGHT WITHIN REACH.
[2025-10-04 19:39] VITALS: BP 131/82
--- NOTE | 2025-10-04 21:10 | NUR ---
UPDATE PATIENT [employer] LIGHT ASKING FOR MEDICATIONS FOR ANXIETY. THIS RN TO ROOM TO GIVE 2100 MEDICATIONS, INCLUDING SEROQUEL 200MG PO AND CLONIDINE 0.1MG PO. PATIENT ASKED WHAT MEDICATIONS WERE GOING TO BE GIVEN. TOLD PATIENT WHICH MEDICATIONS WERE ORDERED. HE THEN REQUESTED ATIVAN STATING "THEY USUALLY GIVE ME ATIVAN." EDUCATED PATIENT USAGE OF CLONIDINE AND SEROQUEL AND THAT ATIVAN COULD BE GIVEN AT A LATER TIME IF THESE MEDICATIONS DID NOT HELP. ALSO DISCUSSED NON-PHARMACOLOGICAL COPING SKILLS FOR ANXIETY. PATIENT'S BODY IS CALM, SPEECH IS CLEAR WITH NORMAL PACE AND RHYTHM, NOT APPEARING OVERLY ANXIOUS. PATIENT AGREEABLE FOR NOT TAKING ATIVAN AT THIS TIME. SPOKE WITH PATIENT BRIEFLY ABOUT HIS PLAN AFTER DISCHARGE. PATIENT STATES THAT HE DOESN'T REALLY HAVE A PLAN, AND THAT HE WILL PROBABLY RETURN TO DRINKING AGAIN. HE STATES THAT HE DOES NOT HAVE A CHOICE BECAUSE [facility] "CUT ME OFF COLD TURKEY" OF METHADONE AND "THEY SIGNED MY CERTIFICATE."
[2025-10-05 00:11] VITALS: BP 125/71
[2025-10-05 04:33] VITALS: BP 109/66
--- NOTE | 2025-10-05 06:48 | NUR ---
SHIFT SUMMARY PATIENT A/OX4. LOW SUICIDE RISK. DENIED SI DURING SHIFT. CIWA STABLE DURING SHIFT <5, PRIMARILY ANXIETY THAT PATIENT REPORTED. PATIENT IND IN ROOM. SLEPT MOST OF SHIFT. COOPERATIVE WITH CARE AND SHOWED APPRECIATION FOR CARE PROVIDED. PATIENT DOES NOT HAVE PLAN ESTABLISHED AFTER DISCHARGE. MENTIONED THAT HE WOULD LIKELY RELAPSE WITH ALCOHOL OR USE FENTANYL. SEE PREVIOUS NURSE NOTE. NO OTHER ACUTE EVENTS OVERNIGHT. PLAN OF CARE ONGOING.
[2025-10-05 09:05] VITALS: BP 124/95
[2025-10-05 12:39] VITALS: BP 140/108
[2025-10-05 15:58] VITALS: BP 143/106
--- NOTE | 2025-10-05 17:53 | NUR ---
SHIFT SUMMARY A/OX4, ABLE TO MAKE NEEDS KNOWN. UP IND TO BATHROOM. CIWA <8. PT REPEATEDLY ASKING FOR METHADONE OR ANXIETY MEDS. PO ATIVAN, LIBRIUM, AND OT DOSE OF METHADONE GIVEN. NO ACUTE CHANGES AT THIS TIME.
[2025-10-05 19:42] VITALS: BP 127/85
[2025-10-06 00:03] VITALS: BP 111/67
[2025-10-06 03:46] VITALS: BP 114/74
[2025-10-06 03:50] LABS: BASOPHILS ABSOLUTE AUTO 0.02 K/mm3 (0.00-0.23); BASOPHILS PERCENT AUTO 1 % (0-2); EOSINOPHILS ABSOLUTE AUTO 0.33 K/mm3 (0.00-0.68); EOSINOPHILS PERCENT AUTO 9 % (0-6); Hematocrit 37.2 % (37.0-53.0); Hemoglobin 12.9 g/dL (13.5-17.5); IMMATURE GRAN ABSOLUTE AUTO 0.01 K/mm3 (0.00-0.10); IMMATURE GRAN PERCENT AUTO 0 % (0-1); LYMPHOCYTES ABSOLUTE AUTO 0.48 K/mm3 (0.84-5.20); LYMPHOCYTES PERCENT AUTO 13 % (21-46); MONOCYTES ABSOLUTE AUTO 0.38 K/mm3 (0.16-1.47); MONOCYTES PERCENT AUTO 10 % (4-13); Mean Corpuscular HGB Conc 34.7 g/dL (31.5-36.5); Mean Corpuscular Volume 87 fL (80-100); NEUTROPHILS ABSOLUTE AUTO 2.55 K/mm3 (1.96-9.15); NEUTROPHILS PERCENT AUTO 68 % (41-73); NRBC ABSOLUTE 0.00 K/mm3 (0.00-0.02); NRBC Auto 0.0 /100 WBC (0.0-0.2); Platelet Count 105 K/mm3 (150-400); RDW Coefficient Variation 13.2 % (11.7-14.2); RDW Standard Deviation 41.7 fL (35.1-46.3)
[2025-10-06 04:08] LABS: Alanine Aminotransfer (ALT/SGP 106.0 U/L (12-78); Albumin, Blood 3.2 g/dL (3.4-5.0); Albumin/Globulin Ratio 1.2 (0.8-1.8); Anion Gap 7.0 mmol/L (3-11); Aspartate Aminotrans (AST/SGOT 62.0 U/L (12-37); Bilirubin, Total 0.2 mg/dL (0.1-1.0); Blood Urea Nitrogen 14.0 mg/dL (8-24); CO2, Blood 30.0 mmol/L (21-32); Calcium, Blood 8.5 mg/dL (8.5-10.1); Chloride, Blood 103.0 mmol/L (98-108); Creatinine, Blood 0.69 mg/dL (0.60-1.20); Globulin, Blood 2.7 g/dL (2.2-4.0); Glucose, Blood 120.0 mg/dL (70-99); Potassium, Blood 3.4 mmol/L (3.5-5.5); Sodium, Blood 137.0 mmol/L (136-145); Total Protein, Blood 5.9 g/dL (6.4-8.2)
--- NOTE | 2025-10-06 05:55 | NUR ---
SHIFT SUMMARY PATIENT A/OX4. MOOD SEEMS IMPROVED COMPARED TO LAST 2 NIGHTS. COOPERATIVE WITH CARE. LOW SUICIDE RISK. DENIED SI. MAKES GOOD EYE CONTACT. CIWA 0-7, PRIMARILY ANXIETY, NAUSEA, AND HEADACHE. BHAVIN PO INTAKE WELL. IND IN ROOM AND VOIDING IN TOILET. PATIENT SHOWERED THIS SHIFT AND NEW LINENS ON BED. PATIENT STILL APATHETIC ABOUT DISCHARGE PLAN. PATIENT LIKELY DISCHARGE TUESDAY WITH RESOURCES FOR OP ETOH/OPIOD ABSTINENCE. PLAN OF CARE ONGOING.
[2025-10-06 08:04] VITALS: BP 126/81
--- NOTE | 2025-10-06 08:07 | NUR ---
NURSING PCU DAYSHIFT: Assumed care of pt at approx 0700. A/O, mildly anxious, cooperative w/care. Denies any general discomfort at rest though c/o mild ARCEO, denies need for intervention. Current CIWA 4, reports improvement from previous day. Ambulates w/a steady gait independently and w/o difficulty. Skin intact though old scars noted to abd and new scabs r/t SC lovenox. Tele in place, NSR, no c/o CP/pressure, SBP 120's, no noted edema. L/S cta t/o, O2 sat upper 90's on RA, denies dyspnea, no noted cough. Abd SNT, BT+, voiding w/o difficulty per pt. PG to [facility]ERAL[facility], s/l. No s/s of acute distress this a.m. 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 Requested physician to be contacted for order of 50mg methadone this a.m., pt agreeable to wait for physician rounding. Denies any other current needs, call light in reach, cont to monitor for changes.
[2025-10-06] MEDS ORDERED: Polyethylene Glycol 3350 17 gm PO SCH (09:00)
[2025-10-06] MEDS ORDERED: CHLO25 PO (10:34)
[2025-10-06] MEDS ORDERED: ACAMPROSATE CA333 MG PO (10:35)
[2025-10-06 11:23] VITALS: BP 128/87
--- NOTE | 2025-10-06 13:31 | NUR ---
NURSING PCU DISCHARGE SUMMARY: No significant changes t/o the shift. CIWA remains 4-5. Seen by PMD, plan of care discussed, new d/o received. Pt agreeable to discharge today if a dose of methadone was given prior to discharge. Discharge home d/o received. Pt verbalized concerns of not being able to have methadone tomorrow. Discussed discharge plan again with patient including reaching out to [facility] tomorrow for suboxone induction, telephone and address provided. Pt verbalized understanding of all verbal and written discharge instructions, Rx's faxed to [facility] per pt request, hard Rx for librium provided. PG dc'd w/cath intact. Dressed and packed belongings independently, awaiting ride. Monitor until discharge complete.
== END 2025-10-06 13:41 | disposition home or self-care (01) | DRG 897 ==
LOC: ER 10:41 → ICUE 13:10 → PCU 10-03 10:06
PROVIDERS: Family Medicine; Physician Assistant; ADMIT Internal Medicine
DX: F10.232 Alcohol dependence with withdrawal with perceptual disturbance (principal); E87.20 Acidosis, unspecified; F33.9 Major depressive disorder, recurrent, unspecified; E87.1 Hypo-osmolality and hyponatremia; J44.9 Chronic obstructive pulmonary disease, unspecified; J45.909 Unspecified asthma, uncomplicated; K59.00 Constipation, unspecified; K76.0 Fatty (change of) liver, not elsewhere classified; D72.819 Decreased white blood cell count, unspecified; F17.200 Nicotine dependence, unspecified, uncomplicated; F11.11 Opioid abuse, in remission; K70.10 Alcoholic hepatitis without ascites; Z86.14 Personal history of Methicillin resistant Staphylococcus aureus infection; Z86.711 Personal history of pulmonary embolism; Z98.890 Other specified postprocedural states; Z79.899 Other long term (current) drug therapy
CPT/HCPCS: 80048; 80053; 80320; 83735; 84100; 85025; 85027; 94760; 94762; 96361; 96374; 96375; 96376; 99285-25; A9270; C1751; J0360; J1650; J2060; J2405; J2560; J3411; J7030; J7050